=== PATIENT | male | born 1940 | race Caucasian/White ===

== ENCOUNTER → 2020-08-10 13:42 | Outpatient (BNVA) | payer MEDICARE, OTHER, SELFPAY | PROVIDERS: PCP Internal Medicine Endocrinology, Diabetes & Metabolism; Visit Provider Urology | DX: N40.1 Benign prostatic hyperplasia with lower urinary tract symptoms (principal); C67.2 Malignant neoplasm of lateral wall of bladder | CPT/HCPCS: 52000; 81002; 99212 ==

== ENCOUNTER 2021-06-27 08:49 | Outpatient (REF) | payer MEDICARE, OTHER, SELFPAY ==
[2021-06-27 16:18] LABS: Urine Cytology See Pathology rpt
== END 2021-06-27 08:50 | disposition home or self-care (01) ==
LOC: HO.LAB 08:49
PROVIDERS: PCP Internal Medicine Endocrinology, Diabetes & Metabolism; Visit Provider Urology
DX: C67.2 Malignant neoplasm of lateral wall of bladder (principal); N40.1 Benign prostatic hyperplasia with lower urinary tract symptoms; Z85.51 Personal history of malignant neoplasm of bladder
CPT/HCPCS: 52000; 88112; 99212

== ENCOUNTER 2021-12-21 09:22 | Inpatient (IN) | payer MEDICARE, OTHER, SELFPAY ==
[2021-12-21] VITALS (12 sets, daily range): BP systolic 115–197; BP diastolic 66–84; PULSE 60–95; RESP 13–20; TEMP 36.3–36.9; O2SAT 92–97; BMI 33.0; BMI 34.7
--- NOTE | ~2021-12-21 | FL_ITS ---
EXAMINATION: XR FLUOROSCOPY WITH IMAGES CLINICAL INFORMATION: Left hydronephrosis, distal left ureteral calculus. COMPARISON: CT abdomen and pelvis without contrast 12/21/2021 TECHNIQUE: Fluoroscopy performed by Dr. Silvino Loera. Fluoroscopy time: 11 seconds. Cumulative Dose: 5.88 mGy. Images: 1. FINDINGS: There is contrast in the distal left ureter along with a left guidewire. Small oval filling defect in the distal left ureter is consistent with the known calculus. No extravasation of contrast. FL/FL guidance in OR IMPRESSION: Fluoroscopy for urologic procedure.
--- NOTE | ~2021-12-21 | CT_ITS ---
EXAMINATION: CT ABDOMEN AND PELVIS WITHOUT CONTRAST CLINICAL INFORMATION: Left flank and left lower quadrant pain. COMPARISON: CT abdomen/pelvis 09/16/2017. TECHNIQUE: Multidetector volumetric imaging was performed from the superior aspect of the liver through the pubic symphysis. Sagittal and coronal reformatted images were obtained on the technologist's workstation. This CT examination was performed using dose optimization techniques as appropriate, variously including the following: *Automated exposure control *Adjustment of mA and/or kV according to patient size (this includes techniques or standardized protocols for targeted exams where dose is matched to indication/reason for exam; i.e. extremities or head) *Use of iterative reconstruction technique DLP: 747 mGy-cm FINDINGS: LUNG BASES: Subsegmental atelectases. No focal consolidation or pleural effusion. Partially imaged coronary vascular calcifications. LIVER, GALLBLADDER, AND BILIARY TREE: The liver is enlarged measuring 21 cm craniocaudally and demonstrates decreased parenchymal attenuation suggesting the presence of hepatic steatosis. No discrete focal liver lesions are noted in this limited noncontrast examination. Cholelithiasis. No associated gallbladder wall thickening or pericholecystic inflammatory changes to suspect acute cholecystitis. PANCREAS: Unremarkable. SPLEEN: Unremarkable. ADRENAL GLANDS: Unremarkable. KIDNEYS AND URETERS: There is moderate left hydroureteronephrosis with a 0.5 cm calculus in the distal left ureter measuring approximately 473 Hounsfield units. There is mild asymmetric left perinephric fat stranding and left periureteric fat stranding. No right hydroureteronephrosis. There are at least 3 additional punctate calculi in the left kidney, for instance in the lower pole on image 39, series 2. There is a punctate calculus in the lower right kidney on image 34, series 2. There is a well-defined water density cyst in the lateral right kidney measuring 3.7 cm, for which no imaging follow-up is recommended. BLADDER: Unremarkable. GASTROINTESTINAL TRACT: The stomach and the small bowel are nondilated. The appendix is not definitely visualized, however there are no regional inflammatory changes to suspect acute appendicitis. There is severe sigmoid diverticulosis but with no pericolonic inflammatory changes. No evidence of bowel obstruction. ABDOMINAL WALL: No significant hernia is appreciated. LYMPH NODES: No lymphadenopathy by size criteria. 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 Atherosclerotic disease. PELVIC VISCERA: Prostatic calcifications. OSSEOUS STRUCTURES: Severe degenerative changes of the spine. Redemonstration of asymmetric cortical thickening with coarsening of the trabecular architecture of the right hemipelvis and sacrum consistent with Paget's disease. CT/CT abdomen pelvis wo IV con IMPRESSION: Moderate left hydroureteronephrosis with a 0.5 cm obstructive calculus in the distal left ureter. Additional bilateral renal calculi as above. Cholelithiasis but no findings to suspect acute cholecystitis. Severe sigmoid diverticulosis with no significant pericolonic inflammatory changes. Mild acute diverticulitis cannot be excluded as there is some degree of wall thickening that could as well be chronic and related with muscular hypertrophy. Clinical correlation is needed. Hepatomegaly and hepatic steatosis. Paget's disease of the pelvis.
[2021-12-21 10:23] LABS: Appearance Urine Clear; Color Urine Yellow; Glucose Urine UA >=1000 mg/dL (Negative); Leukocyte Esterase Urine Negative (Negative); Nitrite Urine Negative (Negative); UMIC TRIGGER UACC YES; Urine Blood Large (3+) (Negative); Urine Ketones 15 mg/dL (Negative); Urine Protein Trace mg/dL (Neg-Trace)
[2021-12-21 10:28] LABS: Bacteria Urine None Seen (None Seen); Hyaline Casts Urine 0-2 /LPF (0-2); RBC Urine >20 /HPF (0-2); Squamous Epithelial Cell Urine 0-2 /HPF (0-2); WBC Urine 0-5 /HPF (0-5)
--- NOTE | 2021-12-21 12:23 | ED_ITS ---
HPI - Abdominal Pain General Chief Complaint: Abdominal Pain Stated Complaint: kidney stones/nausea/constipation Time Seen by Provider: 12/21/21 12:18 Source: patient Mode of arrival: ambulatory History of Present Illness HPI narrative: 81-year-old male with past medical history of BPH, diabetes, bladder CA, renal stones, presenting to the ED complaining of left flank pain radiating to left lower quadrant with associated nausea and constipation since 06:00. States pain is constant. Also reports urinary frequency and urgency. Denies known fever, vomiting, diarrhea, hematuria MD elicited complaint: abdominal pain and flank pain Pertinent past history: constipation and kidney stones Onset (ago): hour(s) Related Data Home Medications Medication Instructions Recorded Confirmed atorvastatin 80 mg tablet 80 mg PO DAILY 08/10/20 metformin 1,000 mg tablet 1,000 mg PO DAILY 08/10/20 glipizide 5 mg tablet, extended 5 mg PO DAILY 06/27/21 release 24 hr dapagliflozin 5 mg tablet (Farxiga) 5 mg PO DAILY 12/21/21 12/21/21 lisinopril 10 mg tablet 10 mg PO DAILY 12/21/21 12/21/21 Allergies Allergy/AdvReac Type Severity Reaction Status Date / Time No Known Allergies Allergy Verified 06/27/21 08:51 [No Known Allergies*] Review of Systems Review of Systems Constitutional: No Fever, No Chills, No Fatigue, No Malaise ENT/Mouth: No Ear Pain, No Nasal Congestion, No sore throat, No Rhinorrhea, No Swallowing Difficulty Eyes: No Eye Pain, No Swelling, No Redness, No Vision Changes Cardiovascular: No Chest Pain, No SOB, No Edema, No Palpitations Respiratory: No Cough, No Sputum, No Dyspnea Gastrointestinal: + Nausea, No Vomiting, No Diarrhea, No Constipation, + Abdomin al pain Genitourinary: No Dysuria, + Urinary Frequency, No Hematuria, No Urinary Incontinence/retention, + Urgency, + Flank Pain, No Urinary Flow Changes, No Hesitancy Musculoskeletal: No joint pain, No Myalgias, No Joint Swelling Skin: No Skin Lesions, No rash Neuro: No Weakness, No Numbness, No Headache Yes all other systems are reviewed and are negative Constitutional: Reports as per [facility] Past Medical History Attestation statement: The following information was validated with the patient. Medical History Benign prostatic hyperplasia with lower urinary tract symptoms Diabetes mellitus, type II History of bladder cancer Malignant neoplasm of lateral wall of urinary bladder Surgical History History of surgery Social History Social History Are you DNR?: No Advance Directives: No Advance Directives Information Provided: No Physical Exam ED Vital Signs: Vital Signs - 24 hr 12/21/21 10:08 12/21/21 14:23 12/21/21 15:43 Temperature 98.1 F 98.0 F 98.3 F Pulse Rate 62 87 88 Respiratory Rate 13 14 14 Blood Pressure 197/75 H 168/84 H 156/70 H Pulse Oximetry 94 96 92 Oxygen Delivery Method Room Air Room Air 12/21/21 17:20 Temperature 98.5 F Pulse Rate 95 Respiratory Rate 18 Blood Pressure 179/75 H Pulse Oximetry 92 Oxygen Delivery Method Room Air BMI result Body Mass Index 33.0 Const General: cooperative, healthy appearing and no acute distress Orientation/consciousness: patient oriented x3 Limitations: no limitations HENMT Head: Yes normal to inspection and Yes atraumatic Ears: hearing grossly normal bilaterally General nose exam: Normal external nose present Face and sinus: Yes normal facial exam Eyes General: appearance normal, both eyes and all related structures EOM: EOMs intact bilaterally Neck Neck: Yes normal visual inspection and Yes no meningeal signs Resp Effort & Inspection: normal respiratory effort and no respiratory distress Auscultation: clear to auscultation bilaterally Cardio Rate: regular rate Heart sounds: S1 normal heart sound present and S2 normal heart sound present GI Inspection: Yes normal to inspection Palpation (GI): Soft to palpation, Tenderness to palpation present (GI) in the LLQ; with no rebound tenderness, no guarding and not rigid General: Yes CVA tenderness on the left Back/Spine/Pelvis Back: CVA tenderness Skin Rashes: no rashes Wounds: no wounds Neuro General: patient oriented x3, tone normal and no meningeal signs Gait exam (Neuro): Normal gait present Extrem General: Yes normal to inspection Course Course Course Narrative: -UA with RBCs and glucose, not infected -1411--leukocytosis to 14.8 likely reactive from pain, no evidence of infection at this time. Potassium mildly elevated to 5.5 > p.o. Lokelma given -BUN chronically elevated. Labs otherwise reassuring -1527--lactic acid elevated to 3.6 > could be related to metformin CT abdomen pelvis wo IV con IMPRESSION: Moderate left hydroureteronephrosis with a 0.5 cm obstructive calculus in the distal left ureter. Additional bilateral renal calculi as above. ? Cholelithiasis but no findings to suspect acute cholecystitis. ? Severe sigmoid diverticulosis with no significant pericolonic inflammatory changes. Mild acute diverticulitis cannot be excluded as there is some degree of wall thickening that could as well be chronic and related with muscular hypertrophy. Clinical correlation is needed. ? Hepatomegaly and hepatic steatosis. ? Paget's disease of the pelvis. >1528--infection is now suspected. Empiric IV Zosyn ordered. Will consult Urology, Dr. Loera for obstructive calculus -Dr. Loera evaluated patient in the ED, taking to the OR for stent placement at 05:30PM Patient admitted for further management MDM - Abdominal Pain MDM Narrative Medical decision making narrative: 81-year-old male with past medical history of BPH, diabetes, bladder CA, renal stones, presenting to the ED complaining of left flank pain radiating to left lower quadrant with associated nausea and constipation since 06:00. On exam vital signs stable, NAD, appears in pain, abdomen soft with left lower quadrant tenderness and left CVA tenderness, no rebound or guarding. Concern for renal stone vs pyelonephritis/UTI or diverticulitis/SBO/constipation. Lower suspicion for appendicitis/cholecystitis or pancreatitis. Plan: Labs, UA, CT AP, IVF, pain management Differential Diagnosis Differential diagnosis: Likely abdominal pain, calculus of kidney, constipation, diverticulitis and small bowel obstruction Medical Records Attestation: I reviewed the patient's medical records. Lab Data Attestation: I reviewed the patient's lab results. Result diagrams: 12/21/21 13:12 12/21/21 13:12 Labs: Lab Results 12/21/21 12/21/21 12/21/21 Range/Units 10:08 13:12 13:12 WBC 14.8 H (4.8-10.8) X10*3/uL RBC 5.42 (4.60-5.80) X10*6/uL Hgb 16.6 (14.0-18.0) g/dl Hct 52.9 H (42.0-52.0) % MCV 97.6 (80.0-98.0) fL MCH 30.6 (27.0-33.0) pg MCHC 31.4 (31.0-36.0) g/dl RDW 13.5 (11.0-16.0) % Plt Count 293 (160-400) X10*3/uL MPV 10.0 (9.4-12.4) fL Immature Gran % (Auto) 0.5 H (0.0-0.4) % Neut % (Auto) 91.1 H (45-73) % Lymph % (Auto) 4.4 L (20-40) % Greene % (Auto) 3.7 (2-11) % Eos % (Auto) 0.1 (0-4) % Baso % (Auto) 0.2 (0-2) % Lymph # (Auto) 0.7 L (1.2-4.9) X10*3/uL Greene # (Auto) 0.6 (0.1-1.2) X10*3/uL Eos # (Auto) 0.0 (0.0-0.4) X10*3/uL Baso # (Auto) 0.0 (0.0-0.2) X10*3/uL Abs Immat Gran (auto) 0.07 H (0.00-0.03) X10*3/uL Absolute Neuts (auto) 13.5 H (2.0-8.3) x10*3/uL Absolute Nucleated RBC 0.000 (0.0-0.012) X10*3/uL Nucleated RBC % (auto) 0.0 (0.0-0.2) /100WBC Smear Tech's Comments VERIFIED Sodium 142 (135-145) mmol/L Potassium 5.5 H (3.3-5.1) mmol/L Chloride 102 (96-108) mmol/L Carbon Dioxide 26 (22-29) mmol/L Anion Gap 20 (12-20) BUN 19 H (9-16) mg/dL Creatinine 1.30 (0.5-1.4) mg/dL Estim Creat Clear Calc 50.5 Estimated GFR 53 POC Glucose (60-115) mg/dL Random Glucose 241 H (60-115) mg/dL Lactic Acid (0.5-2.0) mmol/L Calcium 10.0 (8.4-10.2) mg/dL Magnesium 1.6 (1.6-2.6) mg/dL Total Bilirubin 1.0 (0.0-1.0) mg/dL Direct Bilirubin 0.5 (0.0-0.5) mg/dL AST 31 (5-37) U/L ALT 33 (0-40) U/L Alkaline Phosphatase 157 H (39-117) U/L Total Protein 7.8 (6.5-8.0) g/dL Albumin 4.6 (3.5-5.0) g/dL Lipase 13 (8-78) U/L Urine Color Yellow Urine Appearance Clear Urine pH 5.0 (5.0-9.0) Ur Specific Xenia 1.020 (1.005-1.025) Urine Protein Trace (Neg-Trace) mg/dL Urine Glucose (UA) >=1000 H (Negative) mg/dL Urine Ketones 15 (Negative) mg/dL Urine Blood Large (3+) H (Negative) Urine Nitrite Negative (Negative) Ur Leukocyte Esterase Negative (Negative) Urine RBC >20 H (0-2) /HPF Urine WBC 0-5 (0-5) /HPF Ur Squamous Epith Cells 0-2 (0-2) /HPF Urine Bacteria None Seen (None Seen) Hyaline Casts 0-2 (0-2) /LPF 12/21/21 12/21/21 12/21/21 Range/Units 14:58 17:13 17:21 WBC (4.8-10.8) X10*3/uL RBC (4.60-5.80) X10*6/uL Hgb (14.0-18.0) g/dl Hct (42.0-52.0) % MCV (80.0-98.0) fL MCH (27.0-33.0) pg MCHC (31.0-36.0) g/dl RDW (11.0-16.0) % Plt Count (160-400) X10*3/uL MPV (9.4-12.4) fL Immature Gran % (Auto) (0.0-0.4) % Neut % (Auto) (45-73) % Lymph % (Auto) (20-40) % Greene % (Auto) (2-11) % Eos % (Auto) (0-4) % Baso % (Auto) (0-2) % Lymph # (Auto) (1.2-4.9) X10*3/uL Greene # (Auto) (0.1-1.2) X10*3/uL Eos # (Auto) (0.0-0.4) X10*3/uL Baso # (Auto) (0.0-0.2) X10*3/uL Abs Immat Gran (auto) (0.00-0.03) X10*3/uL Absolute Neuts (auto) (2.0-8.3) x10*3/uL Absolute Nucleated RBC (0.0-0.012) X10*3/uL Nucleated RBC % (auto) (0.0-0.2) /100WBC Smear Tech's Comments Sodium (135-145) mmol/L Potassium (3.3-5.1) mmol/L Chloride (96-108) mmol/L Carbon Dioxide (22-29) mmol/L Anion Gap (12-20) BUN (9-16) mg/dL Creatinine (0.5-1.4) mg/dL Estim Creat Clear Calc Estimated GFR POC Glucose 169 H (60-115) mg/dL Random Glucose (60-115) mg/dL Lactic Acid 3.6 H* 1.5 (0.5-2.0) mmol/L Calcium (8.4-10.2) mg/dL Magnesium (1.6-2.6) mg/dL Total Bilirubin (0.0-1.0) mg/dL Direct Bilirubin (0.0-0.5) mg/dL AST (5-37) U/L ALT (0-40) U/L Alkaline Phosphatase (39-117) U/L Total Protein (6.5-8.0) g/dL Albumin (3.5-5.0) g/dL Lipase (8-78) U/L Urine Color Urine Appearance Urine pH (5.0-9.0) Ur Specific Xenia (1.005-1.025) Urine Protein (Neg-Trace) mg/dL Urine Glucose (UA) (Negative) mg/dL Urine Ketones (Negative) mg/dL Urine Blood (Negative) Urine Nitrite (Negative) Ur Leukocyte Esterase (Negative) Urine RBC (0-2) /HPF Urine WBC (0-5) /HPF Ur Squamous Epith Cells (0-2) /HPF Urine Bacteria (None Seen) Hyaline Casts (0-2) /LPF Discharge Plan Discharge Clinical Impression: 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, Diverticulitis Patient Disposition: Admitted As Inpatient
[2021-12-21] MEDS: Ketorolac Tromethamine 15 MG/ML VIAL IVPUSH (13:13)
[2021-12-21] MEDS: ondansetron HCL 4 MG/2 ML VIAL IVPUSH (13:14)
[2021-12-21] MEDS: 0.9 % Sodium Chloride 1,000 ML 999 ML IV ×2 (13:18→16:48)
[2021-12-21 13:27] LABS: Basophils Percent Auto 0.2 % (0-2); Eosinophils Percent Auto 0.1 % (0-4); Hematocrit 52.9 % (42.0-52.0); Hemoglobin 16.6 g/dl (14.0-18.0); Imm Gran Abs Auto 0.07 X10*3/uL (0.00-0.03); Imm Gran Pct Auto 0.5 % (0.0-0.4); Lymphocytes Absolute Auto 0.7 X10*3/uL (1.2-4.9); Lymphocytes Percent Auto 4.4 % (20-40); MANUAL DIFF FLAG SCAN; Mean Corpuscular HGB Conc 31.4 g/dl (31.0-36.0); Mean Corpuscular Hemoglobin 30.6 pg (27.0-33.0); Mean Corpuscular Volume 97.6 fL (80.0-98.0); Monocytes Absolute Auto 0.6 X10*3/uL (0.1-1.2); Monocytes Percent Auto 3.7 % (2-11); Neutrophils Absolute Auto 13.5 x10*3/uL (2.0-8.3); Neutrophils Percent Auto 91.1 % (45-73); Platelet Count 293 X10*3/uL (160-400); Red Blood Count 5.42 X10*6/uL (4.60-5.80); Red Cell Distribution Width 13.5 % (11.0-16.0); SCAN SMEAR FLAG 1; White Blood Count 14.8 X10*3/uL (4.8-10.8)
[2021-12-21 13:45] LABS: SLIDE REVIEW VERIFIED
[2021-12-21 13:49] LABS: Alanine Aminotransferase 33 U/L (0-40); Albumin Level 4.6 g/dL (3.5-5.0); Alkaline Phosphatase 157 U/L (39-117); Anion Gap 20 (12-20); Aspartate Amino Transferase 31 U/L (5-37); Bilirubin Direct 0.5 mg/dL (0.0-0.5); Blood Urea Nitrogen 19 mg/dL (9-16); Carbon Dioxide 26 mmol/L (22-29); Chloride 102 mmol/L (96-108); Creatinine Clr Calc Pharmacy 50.5; Estimated Glomerular Filt Rate 53; Glucose Random 241 mg/dL (60-115); Lipase 13 U/L (8-78); Magnesium 1.6 mg/dL (1.6-2.6); Potassium 5.5 mmol/L (3.3-5.1); Sodium 142 mmol/L (135-145); Total Protein 7.8 g/dL (6.5-8.0)
[2021-12-21 15:20] LABS: Lactic Acid 3.6 mmol/L (0.5-2.0)
--- NOTE | 2021-12-21 16:05 | HO.ANESPROP2 ---
[facility] Active Problems Active Problems: All Active Problems (Updated 06/27/21 @ 09:20 by Silvino Loera MD) Malignant neoplasm of lateral wall of urinary bladder (Acute) Benign prostatic hyperplasia with lower urinary tract symptoms (Acute) Past Medical History Medical History Benign prostatic hyperplasia with lower urinary tract symptoms Diabetes mellitus, type II History of bladder cancer Malignant neoplasm of lateral wall of urinary bladder Family History Family history of problems with anesthesia: No Surgical History Surgical History History of surgery History of Problems with Anesthesia: No Social History Social History Advance Directives: No Advance Directives Information Provided: No Meds Allergies Allergy/AdvReac Type Severity Reaction Status Date / Time No Known Allergies Allergy Verified 06/27/21 08:51 [No Known Allergies*] Active Medications: Current Medications Sodium Chloride (Ns) 1,000 mls @ 999 mls/hr IV .Q1H1M MICHEAL Stop: 12/21/21 16:30 Home Medications Medication Instructions Recorded Confirmed Last Taken Type atorvastatin 80 mg tablet 80 mg PO DAILY 08/10/20 Unknown History azithromycin 250 mg tablet 250 mg PO DAILY 08/10/20 Unknown History (Zithromax) glyburide 2.5 mg tablet 2.5 mg PO DAILY 08/10/20 Unknown History metformin 1,000 mg tablet 1,000 mg PO DAILY 08/10/20 Unknown History metoprolol tartrate 25 mg tablet 25 mg PO DAILY 08/10/20 Unknown History glipizide 5 mg tablet, extended 5 mg PO DAILY 06/27/21 Unknown History release 24 hr Exam Exam Date and Time: December 21, 2021 1605 Height,Weight and Vital Signs: Height 5 ft 9 in Weight 101.605 kg Last Vital Signs Temp 98.3 F 12/21/21 15:43 Pulse 88 12/21/21 15:43 Resp 14 12/21/21 15:43 BP 156/70 H 12/21/21 15:43 Pulse Ox 92 12/21/21 15:43 O2 Del Method 12/21/21 14:23 Pertinent Lab Results Pertinent Lab Results: Laboratory Tests 12/21/21 12/21/21 12/21/21 10:08 13:12 13:12 WBC 14.8 H RBC 5.42 Hgb 16.6 Hct 52.9 H MCV 97.6 MCH 30.6 MCHC 31.4 RDW 13.5 Plt Count 293 MPV 10.0 Immature Gran % (Auto) 0.5 H Neut % (Auto) 91.1 H Lymph % (Auto) 4.4 L Haines % (Auto) 3.7 Eos % (Auto) 0.1 Baso % (Auto) 0.2 Lymph # (Auto) 0.7 L Haines # (Auto) 0.6 Eos # (Auto) 0.0 Baso # (Auto) 0.0 Abs Immat Gran (auto) 0.07 H Absolute Neuts (auto) 13.5 H Absolute Nucleated RBC 0.000 Nucleated RBC % (auto) 0.0 Smear Tech's Comments VERIFIED Sodium 142 Potassium 5.5 H Chloride 102 Carbon Dioxide 26 Anion Gap 20 BUN 19 H Creatinine 1.30 Estim Creat Clear Calc 50.5 Estimated GFR 53 Random Glucose 241 H Lactic Acid Calcium 10.0 Magnesium 1.6 Total Bilirubin 1.0 Direct Bilirubin 0.5 AST 31 ALT 33 Alkaline Phosphatase 157 H Total Protein 7.8 Albumin 4.6 Lipase 13 Urine Color Yellow Urine Appearance Clear Urine pH 5.0 Ur Specific Morse 1.020 Urine Protein Trace Urine Glucose (UA) >=1000 H Urine Ketones 15 Urine Blood Large (3+) H Urine Nitrite Negative Ur Leukocyte Esterase Negative Urine RBC >20 H Urine WBC 0-5 Ur Squamous Epith Cells 0-2 Urine Bacteria None Seen Hyaline Casts 0-2 12/21/21 14:58 WBC RBC Hgb Hct MCV MCH MCHC RDW Plt Count MPV Immature Gran % (Auto) Neut % (Auto) Lymph % (Auto) Haines % (Auto) Eos % (Auto) Baso % (Auto) Lymph # (Auto) Haines # (Auto) Eos # (Auto) Baso # (Auto) Abs Immat Gran (auto) Absolute Neuts (auto) Absolute Nucleated RBC Nucleated RBC % (auto) Smear Tech's Comments Sodium Potassium Chloride Carbon Dioxide Anion Gap BUN Creatinine Estim Creat Clear Calc Estimated GFR Random Glucose Lactic Acid 3.6 H* Calcium Magnesium Total Bilirubin Direct Bilirubin AST ALT Alkaline Phosphatase Total Protein Albumin Lipase Urine Color Urine Appearance Urine pH Ur Specific Morse Urine Protein Urine Glucose (UA) Urine Ketones Urine Blood Urine Nitrite Ur Leukocyte Esterase Urine RBC Urine WBC Ur Squamous Epith Cells Urine Bacteria Hyaline Casts Airway Mallampati Class: II TM Dist: >3cm Neck ROM: Full Denture: Upper Loose/Missing/Broken Teeth: No Heart: RRR Lungs: CTA Assessment and Plan Assessment Anesthesia Assessment: Anesthesia Plan Discussed and Chart Reviewed Final Anesthetic Review Family History of Problems with Anesthesia: No History of Problems with Anesthesia: No NPO: Yes ASA Class: III and Emergency Final Preanesthetic Review: No Changes in Pt Med Stat, Meds/Allgs Chart Reviewed, Consent Obtained/Reviewed and Anes Risks/Benef Reviewed Patient Risk: Intermediate Procedure Risk: Low Anesthetic Plan Anesthetic Plan: GA Disposition: Standard PACU
--- NOTE | 2021-12-21 16:28 | PM.UROCN ---
History of Present Illness Consult details Consult date: 12/21/21 Narrative: consulting complaint - left distal ureteric stone 81-year-old male Woke this morning at 06:30 with left-sided flank pain Has had prior kidney stones Came to emergency room Creatinine 1.3, WBC 14.8, lactate 3.6 on background of diabetes Imaging - There is moderate left hydroureteronephrosis with a 0.5 cm calculus in the distal left ureter measuring approximately 473 Hounsfield units. There is mild asymmetric left perinephric fat stranding and left periureteric fat stranding. No right hydroureteronephrosis. There are at least 3 additional punctate calculi in the left kidney Plan for cystoscopy, left retrograde, left ureteroscopy with laser lithotripsy stent placement Review of Systems Constitutional: Constitutional: Reports as per HPI and Reports no additional constitutional complaints Cardiovascular: Cardiovascular: Reports as per HPI and Reports no additional cardiovascular complaints Respiratory: Respiratory: Reports as per HPI and Reports no additional respiratory complaints Gastrointestinal: Gastrointestinal: Reports as per HPI and Reports no additional gastrointestinal complaints Genitourinary: Genitourinary: Reports as per HPI Musculoskeletal: Musculoskeletal: Reports no additional musculoskeletal complaints and Reports as per HPI Neurologic: Reports system reviewed and no additional complaints, except as documented and Reports as per HPI [facility] Past Medical History Medical History Benign prostatic hyperplasia with lower urinary tract symptoms Diabetes mellitus, type II History of bladder cancer Malignant neoplasm of lateral wall of urinary bladder Surgical History Surgical History History of surgery Social History Social History Advance Directives: No Advance Directives Information Provided: No Meds Allergies Allergy/AdvReac Type Severity Reaction Status Date / Time No Known Allergies Allergy Verified 06/27/21 08:51 [No Known Allergies*] Active Medications: Current Medications Sodium Chloride (Ns) 1,000 mls @ 999 mls/hr IV .Q1H1M MICHEAL Stop: 12/21/21 16:30 Home Medications Medication Instructions Recorded Confirmed Last Taken Type atorvastatin 80 mg tablet 80 mg PO DAILY 08/10/20 Unknown History azithromycin 250 mg tablet 250 mg PO DAILY 08/10/20 Unknown History (Zithromax) glyburide 2.5 mg tablet 2.5 mg PO DAILY 08/10/20 Unknown History metformin 1,000 mg tablet 1,000 mg PO DAILY 08/10/20 Unknown History metoprolol tartrate 25 mg tablet 25 mg PO DAILY 08/10/20 Unknown History glipizide 5 mg tablet, extended 5 mg PO DAILY 06/27/21 Unknown History release 24 hr Physical Exam Vital Signs: Vital Signs: Last Vital Signs Temp 98.3 F 12/21/21 15:43 Pulse 88 12/21/21 15:43 Resp 14 12/21/21 15:43 BP 156/70 H 12/21/21 15:43 Pulse Ox 92 12/21/21 15:43 O2 Del Method 12/21/21 14:23 BMI result Body Mass Index 33.0 Const: General: cooperative, healthy appearing, comfortable and no acute distress Orientation/consciousness: patient oriented x3 HEENT: Face and sinus: Yes normal facial exam Mouth: moist mucous membranes Neck: Neck: Yes normal visual inspection, Yes full ROM and Yes trachea midline Chest: Chest palpation & inspection: normal inspection of the chest Resp: Effort & Inspection: normal respiratory effort, able to speak in complete sentences and no respiratory distress GI: Inspection: Yes normal to inspection Back/Spine/Pelvis: Cervical Spine: normal cervical lordosis Thoracic/Lumbar Spine: thoracic and lumbar spine normal to inspection Skin: General skin exam: no rashes or lesions noted Neuro: General: patient oriented x3, tone normal and moves all extremities Extrem: General: Yes normal to inspection and Yes capillary refill normal Results Labs Result diagrams: 12/21/21 13:12 12/21/21 13:12 Labs: Abnormal lab results 12/21/21 12/21/21 12/21/21 Range/Units 10:08 13:12 13:12 WBC 14.8 H (4.8-10.8) X10*3/uL Hct 52.9 H (42.0-52.0) % Immature Gran % (Auto) 0.5 H (0.0-0.4) % Neut % (Auto) 91.1 H (45-73) % Lymph % (Auto) 4.4 L (20-40) % Lymph # (Auto) 0.7 L (1.2-4.9) X10*3/uL Abs Immat Gran (auto) 0.07 H (0.00-0.03) X10*3/uL Absolute Neuts (auto) 13.5 H (2.0-8.3) x10*3/uL Potassium 5.5 H (3.3-5.1) mmol/L BUN 19 H (9-16) mg/dL Random Glucose 241 H (60-115) mg/dL Lactic Acid (0.5-2.0) mmol/L Alkaline Phosphatase 157 H (39-117) U/L Urine Glucose (UA) >=1000 H (Negative) mg/dL Urine Blood Large (3+) H (Negative) Urine RBC >20 H (0-2) /HPF 12/21/21 Range/Units 14:58 WBC (4.8-10.8) X10*3/uL Hct (42.0-52.0) % Immature Gran % (Auto) (0.0-0.4) % Neut % (Auto) (45-73) % Lymph % (Auto) (20-40) % Lymph # (Auto) (1.2-4.9) X10*3/uL Abs Immat Gran (auto) (0.00-0.03) X10*3/uL Absolute Neuts (auto) (2.0-8.3) x10*3/uL Potassium (3.3-5.1) mmol/L BUN (9-16) mg/dL Random Glucose (60-115) mg/dL Lactic Acid 3.6 H* (0.5-2.0) mmol/L Alkaline Phosphatase (39-117) U/L Urine Glucose (UA) (Negative) mg/dL Urine Blood (Negative) Urine RBC (0-2) /HPF Short CBC 12/21/21 Range/Units 13:12 WBC 14.8 H (4.8-10.8) X10*3/uL Hgb 16.6 (14.0-18.0) g/dl Hct 52.9 H (42.0-52.0) % Plt Count 293 (160-400) X10*3/uL BMP 12/21/21 13:12 Sodium 142 Potassium 5.5 H Chloride 102 Carbon Dioxide 26 BUN 19 H Creatinine 1.30 Calcium 10.0 Liver Function 12/21/21 Range/Units 13:12 Total Bilirubin 1.0 (0.0-1.0) mg/dL Direct Bilirubin 0.5 (0.0-0.5) mg/dL AST 31 (5-37) U/L ALT 33 (0-40) U/L Alkaline Phosphatase 157 H (39-117) U/L Albumin 4.6 (3.5-5.0) g/dL Urine 12/21/21 Range/Units 10:08 Urine Color Yellow Urine Appearance Clear Urine pH 5.0 (5.0-9.0) Ur Specific Eldridge 1.020 (1.005-1.025) Urine Protein Trace (Neg-Trace) mg/dL Urine Glucose (UA) >=1000 H (Negative) mg/dL All other labs normal. Assessment and Plan (1) Nephrolithiasis: Status: Acute Plan Ureteroscopy We discussed the nature of the decision and reasonable alternatives for performing ureteroscopy. Options such as medical therapy were discussed. Interventions include chemical dissolution, ESWL, ureteroscopy with laser lithotripsy and stent placement, PCNL. The relative uncertainties and benefits related to each alternate procedure were adequately discussed. General surgical risks including, but not limited to - pain, bleeding, infection, myocardial infarction, pulmonary embolus, deep vein thrombosis and cerebrovascular accident which may result in further hospitalization were discussed. Full disclosure of the procedure as well as all major risks, benefits and complications were discussed including but not limited to damage to the urethra, bladder and kidney infection, damage to the ureter, stent migration or malposition, scarring to the renal pelvis, remnant stone fragments, subsequent stone passage with need for secondary procedures. The overall secondary procedure rate is approximately 10-15%. The overall clearance rate is approximately 90-95%. Success of the procedure in the short-term does not necessarily guarantee that long-term success will be maintained. Suitable follow up will need to be maintained. The patient showed understanding of discussion and wishes to proceed with - cystoscopy, retrograde, ureteroscopy, possible lithotripsy/stone basketing and stent on the left side Procedures Date of Service Date of Service: 12/21/21
[2021-12-21] MEDS: Sodium Zirconium Cyclosilicate 5 GM POWD.PACK PO (16:47)
[2021-12-21] MEDS: Piperacillin Sodium/Tazobactam 3.375 GM in 0.9 % Sodium Chloride 50 ML IV (16:47)
--- NOTE | 2021-12-21 17:00 | PC.NURSE ---
Upon receiving report from ED, pt noted to have lactic acid of 3.6 and do for repeat labs at 1700. No current orders for repeat level. Dr. Loera notified and ordered entered. Lactic level drawn in PACU at 1710. Pt also noted to not have EKG on file, Dr. Gonzalez aware and order entered. EKG done in PACU. Pt to be admitted to the floor following procedure, no hospitalist consult in, no admission orders, no COVID test. ED physician aware, consult and COVID swab orders entered
--- NOTE | 2021-12-21 17:03 | PC.NURSE ---
RN to RN report provided to Rosamaria. Pt to surgery at this time.
[2021-12-21 17:04] LABS: Reflex Lactate? Lactic Acid Added
[2021-12-21 17:25] LABS: Glucose, Whole Blood 169 mg/dL (60-115)
[2021-12-21 17:28] LABS: Lactic Acid 1.5 mmol/L (0.5-2.0)
--- NOTE | 2021-12-21 17:30 | MHC.SHP ---
Pre-Procedural Eval Section A Date of Service: 12/21/21 The patient is an INPATIENT: No Changes since office visit: No Cold of Flu in the past 2 weeks, No New Medical Problems, No Changes in Medication and No Patient answered all questions The History & Physical has been completed within 30 days and I have reviewed it.: Yes Section B Chief Complaint: kidney stones/nausea/constipation Allergies: Allergies Allergy/AdvReac Type Severity Reaction Status Date / Time No Known Allergies Allergy Verified 06/27/21 08:51 [No Known Allergies*] Review of Systems Sugical H&P ROS: Negative: Constitution, Cardiovascular, Respiratory, Neurological, Psychiatric, Hem-Onc, Allergic/Immunologic, Gastrointestinal, Genitourinary, Musculoskeletal, Integumentary, Endocrine and Eyes/Ears/Nose/Throat Exam Surgical H&P Exam: Normal: HEENT, Normal: Heart, Normal: Lungs, Normal: Extremities, Normal: Abdomen, Normal: Skin and Normal: Neurological Plan Diagnosis/Plan: Unchanged ( cystoscopy, left retrograde, left rigid ureteroscopy with laser lithotripsy stent placement) I have reviewed the history and physical and performed a pertinent physical examination on my patient. No changes have occurred unless specified.
--- NOTE | 2021-12-21 17:50 | PHA.MEDREC ---
Pharmacy Consult ? Medication Reconciliation Pharmacy has completed the medication reconciliation. Contacted pt's son for med list, he wast not sure and asked us to contact [facility]. [facility] contacted and they have the patient as Raya Guajardo in their system
[2021-12-21 17:58] LABS: COVID-19 Test Negative (Negative); IDNOW Serial# 9DB6401D
--- NOTE | 2021-12-21 18:21 | W.PM.OPN ---
Operative Note Operative Note Date of Service: 12/21/21 Narrative: PreOperative Diagnosis: distal left ureteric stone Post Operative Diagnosis: distal left ureteric stone Procedure: - cystoscopy, left retrograde - left dilatation of ureteric orifice under fluoroscopy - left ureteroscopy, laser lithotripsy, stone basketing - left stent placement Surgeon: Dr Silvino Loera Anesthesia: General Indications for procedure: distal left ureteric stone with hydroureter for [place] and creatinine 1.3, lactate 3.6 Procedure: After informed consent was verified patient was brought to the operating placed in supine position. Anesthesia was administered per protocol. Patient was placed in modified dorsal lithotomy position and prepped and draped in a sterile fashion. Safety pause time-out and side of surgery confirmed. Antibiotics confirmed. A 22 Turkish cystoscope was inserted per urethra. Bladder was normal in its entirety. Both ureteric orifices were in normal position. The left ureteric orifice was cannulated and a retrograde examination was performed. stone defects seen in distal portion left ureter and proximal hydroureteronephrosis . A Sensor guidewire was placed up to the level of the renal pelvis under fluoroscopy. The rigid cystoscope was removed. A [place] dilator was placed over the Sensor guidewire and used to dilate the ureteric orifice under fluoroscopy. The dilator was removed. The semi rigid ureteral scope was placed alongside the Sensor guidewire. stone was encountered. Using a365 laser fiber stone broken a small pieces. Using basket fragments removed and sent for analysis. A 6 Turkish by 24 cm double-J stent was placed into the renal pelvis and bladder under a combination of fluoroscopy and direct visualization. The bladder was emptied. The patient tolerated the procedure well and was extubated in the operating room, and transferred in stable condition to the recovery area. Pathology: Stones Drains: double-J stent
[2021-12-21 20:18] LABS: Glucose, Whole Blood 159 mg/dL (60-115)
--- NOTE | 2021-12-21 21:05 | HO.PM.IMCN ---
History of Present Illness Data of Consult Service Date: 12/21/21 Primary Care Provider: Kenneth Deleon MD [facility] Reason for consult: Medical management This is a 81-year-old male with a pertinent history of recurrent nephrolithiasis, BPH, myp-yfaxmps-emvjixtib diabetes mellitus, who presents to the emergency department with complaints of left flank pain. Patient states that it started on the day of presentation around 6am and was persistent, progressive, nonradiating and associated with nausea. Denies any GI complaints. Patient denies fever, chills, chest discomfort, palpitations, shortness of breath, vomiting, changes in bowel habit. In the emergency department, white count was elevated with lactic acidosis and imaging was concerning for moderate left hydronephrosis with 0.5 cm calculus in the distal left ureter. Urology was consulted and patient underwent cystoscopy with left ureteroscopy and laser lithotripsy with stent placement. Hospitalist group consulted for evaluation and management of chronic medical conditions. Review of Systems Review of Systems: All 13 review of systems are negative except as noted in HPI [facility] Medical History (Updated 12/21/21 @ 21:37 by Eulogio Madrigal MD) Benign prostatic hyperplasia with lower urinary tract symptoms Diabetes mellitus, type II History of bladder cancer Malignant neoplasm of lateral wall of urinary bladder Surgical History History of surgery Social History Are you DNR?: No Advance Directives: No Advance Directives Information Provided: No Meds Allergies Allergy/AdvReac Type Severity Reaction Status Date / Time No Known Allergies Allergy Verified 06/27/21 08:51 [No Known Allergies*] Active Medications: Current Medications Atorvastatin Calcium (Atorvastatin Calcium 80 Mg Tablet) 80 mg PO DAILY MICHEAL Glipizide (Glipizide Xl 5 Mg Tab.Er.24) 5 mg PO DAILY MICHEAL Sodium Chloride (Ns) 1,000 mls @ 100 mls/hr IVCONT .Q10H MICHEAL Lisinopril (Lisinopril 10 Mg Tablet) 10 mg PO DAILY MICHEAL; Protocol Metformin HCl (Metformin Hcl 1,000 Mg Tablet) 1,000 mg PO BIDWM MICHEAL Sodium Chloride (0.9 % Sodium Chloride Flush 3 Ml Syringe) 3 ml IVFLUSH QSHIFT MICHEAL Tramadol HCl (Tramadol Hcl 50 Mg Tablet) 50 mg PO Q6H PRN PRN Reason: Pain, Moderate (Pain Scale 4-6 Home Medications Medication Instructions Recorded Confirmed Last Taken Type atorvastatin 80 mg tablet 80 mg PO DAILY 08/10/20 12/21/21 12/21/21 History metformin 1,000 mg tablet 1,000 mg PO BIDWM 08/10/20 12/21/21 12/21/21 History glipizide 5 mg tablet, extended 5 mg PO DAILY 06/27/21 12/21/21 12/21/21 History release 24 hr dapagliflozin 5 mg tablet (Farxiga) 5 mg PO DAILY 12/21/21 12/21/21 12/21/21 History lisinopril 10 mg tablet 10 mg PO DAILY 12/21/21 12/21/21 12/21/21 History Physical Exam Vital Signs and Narrative: Vital Signs: Last Vital Signs Temp 98.2 F 12/21/21 20:03 Pulse 77 12/21/21 20:03 Resp 20 12/21/21 20:03 BP 151/82 H 12/21/21 20:03 Pulse Ox 97 12/21/21 20:03 O2 Del Method 12/21/21 20:03 O2 Flow Rate 2 12/21/21 20:03 BMI result Body Mass Index 33.0 Elderly male lying in PACU bed in no distress Neck supple, no JVD Regular rate and rhythm, S1-S2 heard Regular breath sounds bilaterally, no wheezing or crackles appreciated Abdomen soft nontender, no guarding, no rigidity, no flank tenderness ; Rizzo catheter with reddish urine Patient is awake, alert and oriented to self, place, time and person ; no focal motor deficit Psych: Normal mood No pedal edema Results Labs CBC and Chem 7: 12/21/21 13:12 12/21/21 13:12 Labs: Laboratory Results - last 24 hr 12/21/21 12/21/21 12/21/21 10:08 13:12 13:12 MCV 97.6 MCH 30.6 MCHC 31.4 RDW 13.5 Plt Count 293 MPV 10.0 Immature Gran % (Auto) 0.5 H Neut % (Auto) 91.1 H Lymph % (Auto) 4.4 L [place] % (Auto) 3.7 Eos % (Auto) 0.1 Baso % (Auto) 0.2 Lymph # (Auto) 0.7 L [place] # (Auto) 0.6 Eos # (Auto) 0.0 Baso # (Auto) 0.0 Abs Immat Gran (auto) 0.07 H Absolute Neuts (auto) 13.5 H Absolute Nucleated RBC 0.000 Nucleated RBC % (auto) 0.0 Smear Tech's Comments VERIFIED Anion Gap 20 Estim Creat Clear Calc 50.5 Estimated GFR 53 POC Glucose Random Glucose 241 H Lactic Acid Calcium 10.0 Magnesium 1.6 Total Bilirubin 1.0 Direct Bilirubin 0.5 AST 31 ALT 33 Alkaline Phosphatase 157 H Total Protein 7.8 Albumin 4.6 Lipase 13 Urine Color Yellow Urine Appearance Clear Urine pH 5.0 Ur Specific [place] 1.020 Urine Protein Trace Urine Glucose (UA) >=1000 H Urine Ketones 15 Urine Blood Large (3+) H Urine Nitrite Negative Ur Leukocyte Esterase Negative Urine RBC >20 H Urine WBC 0-5 Ur Squamous Epith Cells 0-2 Urine Bacteria None Seen Hyaline Casts 0-2 COVID-19 (CORNELIO) COVID-19 [employer] 12/21/21 12/21/21 12/21/21 14:58 17:13 17:21 MCV MCH MCHC RDW Plt Count MPV Immature Gran % (Auto) Neut % (Auto) Lymph % (Auto) [place] % (Auto) Eos % (Auto) Baso % (Auto) Lymph # (Auto) [place] # (Auto) Eos # (Auto) Baso # (Auto) Abs Immat Gran (auto) Absolute Neuts (auto) Absolute Nucleated RBC Nucleated RBC % (auto) Smear Tech's Comments Anion Gap Estim Creat Clear Calc Estimated GFR POC Glucose 169 H Random Glucose Lactic Acid 3.6 H* 1.5 Calcium Magnesium Total Bilirubin Direct Bilirubin AST ALT Alkaline Phosphatase Total Protein Albumin Lipase Urine Color Urine Appearance Urine pH Ur Specific [place] Urine Protein Urine Glucose (UA) Urine Ketones Urine Blood Urine Nitrite Ur Leukocyte Esterase Urine RBC Urine WBC Ur Squamous Epith Cells Urine Bacteria Hyaline Casts COVID-19 (CORNELIO) COVID-19 [employer] Com 12/21/21 12/21/21 17:36 20:07 MCV MCH MCHC RDW Plt Count MPV Immature Gran % (Auto) Neut % (Auto) Lymph % (Auto) [place] % (Auto) Eos % (Auto) Baso % (Auto) Lymph # (Auto) [place] # (Auto) Eos # (Auto) Baso # (Auto) Abs Immat Gran (auto) Absolute Neuts (auto) Absolute Nucleated RBC Nucleated RBC % (auto) Smear Tech's Comments Anion Gap Estim Creat Clear Calc Estimated GFR POC Glucose 159 H Random Glucose Lactic Acid Calcium Magnesium Total Bilirubin Direct Bilirubin AST ALT Alkaline Phosphatase Total Protein Albumin Lipase Urine Color Urine Appearance Urine pH Ur Specific [place] Urine Protein Urine Glucose (UA) Urine Ketones Urine Blood Urine Nitrite Ur Leukocyte Esterase Urine RBC Urine WBC Ur Squamous Epith Cells Urine Bacteria Hyaline Casts COVID-19 (CORNELIO) Negative COVID-19 Clin Com See Note Imaging Radiologist's Impressions: Impressions Abdomen/Pelvis CT 12/21/21 12:56 IMPRESSION: Moderate left hydroureteronephrosis with a 0.5 cm obstructive calculus in the distal left ureter. Additional bilateral renal calculi as above. Cholelithiasis but no findings to suspect acute cholecystitis. Severe sigmoid diverticulosis with no significant pericolonic inflammatory changes. Mild acute diverticulitis cannot be excluded as there is some degree of wall thickening that could as well be chronic and related with muscular hypertrophy. Clinical correlation is needed. Hepatomegaly and hepatic steatosis. Paget's disease of the pelvis. Assessment and Plan (1) 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: Status: Acute (2) Nephrolithiasis: Status: Acute (3) Benign prostatic hyperplasia with lower urinary tract symptoms: Status: Acute Plan #. Acute left-sided Hydronephrosis due to obstructive ureteral calculus status post lithotripsy and stent placement -continue pain management p.r.n. Stent management as per Urology. UA without pyuria, nitrites and leukocyte esterase negative, hold off on antibiotics. WBC likely reactive. #. Type A lactic acidosis -trending down with fluid resuscitation #. Uic-ilxfeop-stjfjwwmu diabetes mellitus with hyperglycemia -hold home metformin and glipizide. Mat resume at discharge. Initiating Accu-Cheks with sliding scale insulin before meals and at bedtime. #. Imaging concerning for diverticulitis -left flank pain likely due to obstructive ureteral calculus and not diverticulitis as patient with complete resolution of symptoms after stent placement and lithotripsy. Patient seen eating in PACU and without further episodes of abdominal pain and nausea. No clinical concern for diverticulitis at this time and no indication for antibiotics. Thank you for the consult. Will sign off at this time. Please call if we can help
[2021-12-21] MEDS: Phenazopyridine HCL 100 MG TABLET PO (22:12)
[2021-12-21] MEDS: 0.9 % Sodium Chloride 1,000 ML 100 ML IVCONT (22:13)
[2021-12-21] MEDS: 0.9 % Sodium Chloride Flush 3 ML SYRINGE IVFLUSH (22:13)
[2021-12-22 03:53] VITALS: BP 151/75; PULSE 79; RESP 18; TEMP 36; O2SAT 97
[2021-12-22 06:59] VITALS: BP 158/88; PULSE 82; RESP 18; TEMP 36.1; O2SAT 93
[2021-12-22] MEDS: Atorvastatin Calcium 80 MG TABLET PO (07:23)
[2021-12-22] MEDS: lisinopriL 10 MG TABLET PO (07:23)
[2021-12-22 07:30] LABS: Glucose, Whole Blood 166 mg/dL (60-115)
[2021-12-22] MEDS: 0.9 % Sodium Chloride 1,000 ML 100 ML IVCONT (08:34)
[2021-12-22 11:18] VITALS: BP 131/61; PULSE 83; RESP 18; TEMP 36.1; O2SAT 91
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
[2021-12-22 15:40] VITALS: BP 173/86; PULSE 86; RESP 18; TEMP 37.6; O2SAT 93
--- NOTE | 2021-12-22 15:41 | P.PNUR_ITS ---
Subjective Subjective Date of Service: 12/22/21 Interval history: Lactic acid resolved Cr ok WBC ok Minimal pain Catheter out Physical Exam Vital Signs: Vital Signs: Last Vital Signs Temp 97 F 12/22/21 11:18 Pulse 83 12/22/21 11:18 Resp 18 12/22/21 11:18 BP 131/61 12/22/21 11:18 Pulse Ox 91 L 12/22/21 11:18 O2 Del Method 12/22/21 11:18 O2 Flow Rate 3 12/22/21 06:59 BMI result Body Mass Index 34.7 Const: General: cooperative, healthy appearing, comfortable and no acute distress Orientation/consciousness: patient oriented x3 HEENT: Face and sinus: Yes normal facial exam Mouth: moist mucous membranes Neck: Neck: Yes normal visual inspection, Yes full ROM and Yes trachea midline Chest: Chest palpation & inspection: normal inspection of the chest Resp: Effort & Inspection: normal respiratory effort, able to speak in complete sentences and no respiratory distress GI: Inspection: Yes normal to inspection Back/Spine/Pelvis: Cervical Spine: normal cervical lordosis Thoracic/Lumbar Spine: thoracic and lumbar spine normal to inspection Skin: General skin exam: no rashes or lesions noted Neuro: General: patient oriented x3, tone normal and moves all extremities Extrem: General: Yes normal to inspection and Yes capillary refill normal Urology Results Labs CBC & Chem 7: 12/21/21 13:12 12/21/21 13:12 Labs: Laboratory Results - last 24 hr 12/21/21 12/21/21 12/21/21 10:08 17:13 17:21 POC Glucose 169 H Lactic Acid 1.5 Urine Color Yellow Urine Appearance Clear Urine pH 5.0 Ur Specific [place] 1.020 Urine Protein Trace Urine Glucose (UA) >=1000 H Urine Ketones 15 Urine Blood Large (3+) H Urine Nitrite Negative Ur Leukocyte Esterase Negative Urine RBC >20 H Urine WBC 0-5 Ur Squamous Epith Cells 0-2 Urine Bacteria None Seen Hyaline Casts 0-2 COVID-19 (CORNELIO) COVID-19 Clin Com 12/21/21 12/21/21 12/22/21 17:36 20:07 06:59 POC Glucose 159 H 166 H Lactic Acid Urine Color Urine Appearance Urine pH Ur Specific [place] Urine Protein Urine Glucose (UA) Urine Ketones Urine Blood Urine Nitrite Ur Leukocyte Esterase Urine RBC Urine WBC Ur Squamous Epith Cells Urine Bacteria Hyaline Casts COVID-19 (CORNELIO) Negative COVID-19 Clin Com See Note Progress Note: A&P Assessment and plan (1) 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: Status: Acute Plan DC home Time Spent With Patient Time: Total time spent is greater than 50% in coordination of care (as documented) at patient's floor/unit and/or counseling patient:
--- NOTE | 2021-12-22 15:46 | PM.DS ---
DS: Providers Provider Date of Service: 12/22/21 Date of admission: 12/21/21 18:18 Primary care physician: Kenneth Deleon MD Consults: 12/21/21 18:20 Consult to Hospitalist Stat Consulting Provider: Hospitalist Reason For Exam: distal stone with diabetes DS: Diagnosis Discharge Diagnosis (1) 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: Status: Acute DS: Summary Hospital Course Hospital Course: Underwent procedure for stone removal and stent placement Status at Discharge Functional status at discharge: independent ambulation Overall status at discharge: patient is back to baseline Time Spent with Patient Time attestation: Total time spent providing and/or coordinating discharge services: Discharge coordination time: Less than 30 minutes Quality: Safe Use of Opioids Does Pt have an Active Cancer Diagnosis on the Problem List?: No Quality: Stroke Does the patient have a stroke diagnosis?: No Physical Exam Vital Signs: Vital Signs: Last Vital Signs Temp 99.6 F 12/22/21 15:40 Pulse 86 12/22/21 15:40 Resp 18 12/22/21 15:40 BP 173/86 H 12/22/21 15:40 Pulse Ox 93 12/22/21 15:40 O2 Del Method 12/22/21 15:40 O2 Flow Rate 3 12/22/21 06:59 BMI result Body Mass Index 34.7 Const: General: cooperative, healthy appearing, comfortable and no acute distress Orientation/consciousness: patient oriented x3 HEENT: Face and sinus: Yes normal facial exam Mouth: moist mucous membranes Neck: Neck: Yes normal visual inspection, Yes full ROM and Yes trachea midline Chest: Chest palpation & inspection: normal inspection of the chest Resp: Effort & Inspection: normal respiratory effort, able to speak in complete sentences and no respiratory distress GI: Inspection: Yes normal to inspection Back/Spine/Pelvis: Cervical Spine: normal cervical lordosis Thoracic/Lumbar Spine: thoracic and lumbar spine normal to inspection Skin: General skin exam: no rashes or lesions noted Neuro: General: patient oriented x3, tone normal and moves all extremities Extrem: General: Yes normal to inspection and Yes capillary refill normal DS: Data Data Completed and Pending Pending studies at discharge: Pending at discharge 12/21/21 18:25 Surgical [PTH] Routine Labs on day of discharge: Laboratory Results - last 24 hr 12/21/21 12/21/21 12/21/21 10:08 17:13 17:21 POC Glucose 169 H Lactic Acid 1.5 Urine Color Yellow Urine Appearance Clear Urine pH 5.0 Ur Specific [place] 1.020 Urine Protein Trace Urine Glucose (UA) >=1000 H Urine Ketones 15 Urine Blood Large (3+) H Urine Nitrite Negative Ur Leukocyte Esterase Negative Urine RBC >20 H Urine WBC 0-5 Ur Squamous Epith Cells 0-2 Urine Bacteria None Seen Hyaline Casts 0-2 COVID-19 (CORNELIO) COVID-19 Clin Com 12/21/21 12/21/21 12/22/21 17:36 20:07 06:59 POC Glucose 159 H 166 H Lactic Acid Urine Color Urine Appearance Urine pH Ur Specific [place] Urine Protein Urine Glucose (UA) Urine Ketones Urine Blood Urine Nitrite Ur Leukocyte Esterase Urine RBC Urine WBC Ur Squamous Epith Cells Urine Bacteria Hyaline Casts COVID-19 (CORNELIO) Negative COVID-19 Clin Com See Note Imaging CT scan - abdomen: Attestation: I personally reviewed and interpreted this imaging study as follows: My impression: obstruction distal stone Radiologist's impression: ITS Impressions Abdomen/Pelvis CT 12/21/21 12:56 IMPRESSION: Moderate left hydroureteronephrosis with a 0.5 cm obstructive calculus in the distal left ureter. Additional bilateral renal calculi as above. Cholelithiasis but no findings to suspect acute cholecystitis. Severe sigmoid diverticulosis with no significant pericolonic inflammatory changes. Mild acute diverticulitis cannot be excluded as there is some degree of wall thickening that could as well be chronic and related with muscular hypertrophy. Clinical correlation is needed. Hepatomegaly and hepatic steatosis. Paget's disease of the pelvis. Discharge Plan Discharge Patient Disposition: Home, Self-Care Discharge Diagnosis: ureteric stone Referrals: Kenneth Deleon MD [Primary Care Provider] - 1 Week Discharge Medications: New tamsulosin 0.4 mg capsule 0.4 mg PO BEDTIME 14 Days Qty: 14 0RF phenazopyridine [Pyridium] 100 mg tablet 100 mg PO TID PRN (Reason: Spasm) 4 Days Qty: 12 0RF Continued lisinopril 10 mg Tablet 10 mg PO DAILY Farxiga 5 mg Tablet 5 mg PO DAILY metformin 1,000 mg tablet 1,000 mg PO BIDWM atorvastatin 80 mg tablet 80 mg PO DAILY glipizide 5 mg tablet extended release 24hr 5 mg PO DAILY Discharge Orders: Discharge Order (Routine); Ordered 12/22/21 Ordered By: Silvino Loera Diet: Advance to usual diet Activity on Discharge: As tolerated Stand Alone Forms: Patient Portal Discharge page Care Plan Goals: stones Health Concerns: stones Plan of Treatment: stones Assessment: stones Patient Instructions: Ureteroscopy (DC)
[2021-12-22 15:54] LABS: Glucose, Whole Blood 165 mg/dL (60-115)
--- NOTE | 2021-12-22 15:56 | PC.NURSE ---
Patient's potassium 12/21 was 5.5, informed the doctor, aware.
--- NOTE | 2021-12-22 19:45 | HO.POSTANES ---
Post Anesthesia Evaluation Post Anesthesia Evaluation Vital Signs: Vital Signs Temp Pulse Resp BP Pulse Ox O2 Del Method 12/22/21 15:40 99.6 F 86 18 173/86 H 93 Room Air 12/22/21 11:18 97 F 83 18 131/61 91 L Room Air Anesthesia: Monitored Mental Status: Awake Pain Control: Satisfactory Nausea/Vomiting: None Hydration: Adequate Anesthesia-Related Issues: No Anes. Related Issues
[2021-12-28 00:03] LABS: Stone Source LEFT URETERAL STONE
== END 2021-12-22 16:37 | disposition home or self-care (01) | DRG 660 ==
LOC: HO.ED 17:00 → HO.SSS 17:10 → HO.EDOVER 18:37 → HO.S3 19:19
PROVIDERS: Physician Assistant; Admitting Provider Urology; Emergency Provider Student in an Organized Health Care Education/Training Program; PCP Internal Medicine Endocrinology, Diabetes & Metabolism; Visit Provider Urology
PROC: 0T778DZ Dilation of Left Ureter with Intraluminal Device, Via Natural or Artificial Opening Endoscopic (ICD-10-PCS; CPT 52356; principal; 2021-12-21 17:30)
DX: N13.2 Hydronephrosis with renal and ureteral calculous obstruction (principal); E87.2 Acidosis; K59.00 Constipation, unspecified; N40.1 Benign prostatic hyperplasia with lower urinary tract symptoms; E11.9 Type 2 diabetes mellitus without complications; Z20.822 Contact with and (suspected) exposure to COVID-19; Z85.51 Personal history of malignant neoplasm of bladder; Z87.442 Personal history of urinary calculi; Z79.84 Long term (current) use of oral hypoglycemic drugs; Z79.899 Other long term (current) drug therapy
CPT/HCPCS: 52356; 36415; 74176; 80048; 80076; 81001; 82365; 82947; 83605; 83690; 83735; 85025; 87040; 87635; 88300; 96361; 96365; 96366; 96375; 99284; 99285; C1758; C1769; C2617; J1885; J2370; J2405; J2543; J3010; Q9967

== ENCOUNTER 2021-12-28 10:05 | Outpatient (REF) | payer MEDICARE, OTHER, SELFPAY ==
[2021-12-28 17:11] LABS: Urine Cytology See Pathology rpt
== END 2021-12-28 10:06 | disposition home or self-care (01) ==
LOC: HO.LAB 10:05
PROVIDERS: Visit Provider Urology
DX: C67.2 Malignant neoplasm of lateral wall of bladder (principal)
CPT/HCPCS: 52310; 88112; 99212

== ENCOUNTER 2022-02-04 11:28 | Outpatient (REF) | payer MEDICARE, OTHER, SELFPAY ==
--- NOTE | ~2022-02-04 | US_ITS ---
EXAMINATION: US RETROPERITONEAL LIMITED (RENAL ONLY) CLINICAL INFORMATION: Calculus of kidney, left stent removal 12/24/2021. COMPARISON: CT abdomen, pelvis 12/21/2021, ultrasound renal 02/01/2015 TECHNIQUE: Ultrasound images were obtained of the bilateral kidneys. Limited visualization due to bowel gas and body habitus. FINDINGS: RIGHT KIDNEY: 11.7 x 5.6 x 7.0 cm (SAG x AP x TRV). 3.6 x 3.3 x 3.6 cm upper pole cyst appears simple. Mid pole calculi measure 0.4 cm, 0.3 cm, and 0.6 cm. Mild focal fullness lower pole collecting system. Limited visualization. LEFT KIDNEY: 10.8 x 4.4 x 4.7 cm (SAG x AP x TRV). Multiple left renal calculi with examples in the upper pole measuring 0.5 cm and 0.3 cm. Mid pole calculi measure 0.4 cm. Lower pole calculi measure 0.4 cm, 0.5 cm, 0.2 cm and 0.3 cm. Mild fullness of the left renal collecting system. Limited visualization. 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 US/US renal BI IMPRESSION: 1. Right renal 3.6 cm upper pole cyst appears simple. 2. Right renal calculi with mild fullness of the right lower pole collecting system. 3. Left renal calculi with mild fullness of the left renal collecting system. 4. 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
== END 2022-02-04 11:29 | disposition home or self-care (01) ==
LOC: HO.US 11:28
PROVIDERS: Visit Provider Urology
DX: N13.2 Hydronephrosis with renal and ureteral calculous obstruction (principal)
CPT/HCPCS: 76775

== ENCOUNTER → 2022-02-26 15:03 | Outpatient (BNVA) | payer MEDICARE, OTHER, SELFPAY | PROVIDERS: PCP Internal Medicine Endocrinology, Diabetes & Metabolism; Visit Provider Urology | DX: C67.2 Malignant neoplasm of lateral wall of bladder (principal); N20.0 Calculus of kidney | CPT/HCPCS: Q3014 ==

== ENCOUNTER 2022-06-19 07:59 | Outpatient (REF) | payer MEDICARE, OTHER, SELFPAY ==
--- NOTE | ~2022-06-19 | US_ITS ---
EXAMINATION: US RETROPERITONEAL LIMITED (RENAL ONLY) CLINICAL INFORMATION: Calculus of kidney. COMPARISON: Renal ultrasound 02/04/2022 and 02/01/2015. CT abdomen and pelvis 12/21/2021. X-ray abdomen KUB 04/19/2015. TECHNIQUE: Real-time imaging of the kidneys. FINDINGS: RIGHT KIDNEY: 11.4 x 5.5 x 5.1 cm (SAG x AP x TRV). The kidney is normal in size, contour, and echogenicity. Renal cortical thickness is normal. A few sub-5 mm nonobstructing renal calculi are noted. There is no hydronephrosis of the right kidney. 3.7 cm simple appearing upper pole cyst is noted for which no follow-up imaging is routinely warranted. LEFT KIDNEY: 10.8 x 4.9 x 3.4 cm (SAG x AP x TRV). The kidney is normal in size, contour, and echogenicity. Renal cortical thickness is normal. A few subcentimeter nonobstructing calculi are noted within the left kidney, the largest measuring 5 mm. There is no hydronephrosis. US/US renal BI IMPRESSION: Tiny bilateral nonobstructing renal calculi. No hydronephrosis of either kidney.
== END 2022-06-19 08:00 | disposition home or self-care (01) ==
LOC: HO.US 07:59
PROVIDERS: PCP Internal Medicine Endocrinology, Diabetes & Metabolism; Visit Provider Urology
DX: N20.0 Calculus of kidney (principal)
CPT/HCPCS: 76775

== ENCOUNTER → 2022-06-26 15:07 | Outpatient (BNVA) | payer MEDICARE, OTHER, SELFPAY | PROVIDERS: PCP Internal Medicine Endocrinology, Diabetes & Metabolism; Visit Provider Urology | DX: N20.0 Calculus of kidney (principal); C67.2 Malignant neoplasm of lateral wall of bladder | CPT/HCPCS: Q3014 ==

== ENCOUNTER 2022-08-21 08:40 | Outpatient (REF) | payer MEDICARE, OTHER, SELFPAY ==
[2022-08-21 18:50] LABS: Urine Cytology See Pathology rpt
== END 2022-08-21 08:41 | disposition home or self-care (01) ==
LOC: HO.LAB 08:40
PROVIDERS: PCP Internal Medicine Endocrinology, Diabetes & Metabolism; Visit Provider Urology
DX: C67.2 Malignant neoplasm of lateral wall of bladder (principal); N20.0 Calculus of kidney
CPT/HCPCS: 52000; 88112; 99212

== ENCOUNTER 2023-03-27 07:40 | Outpatient (REF) | payer MEDICARE, OTHER, SELFPAY ==
--- NOTE | ~2023-03-27 | US_ITS ---
EXAMINATION: US RETROPERITONEAL LIMITED (RENAL ONLY) CLINICAL INFORMATION: Calculus of kidney. COMPARISON: Renal ultrasound 06/19/2022 and 02/04/2022. CT abdomen and pelvis 12/21/2021. X-ray KUB 04/19/2015 and 04/05/2015. TECHNIQUE: Real-time imaging of the kidneys. Limited visualization due to bowel gas. FINDINGS: RIGHT KIDNEY: 11.1 x 6.4 x 6.2 cm (SAG x AP x TRV). No hydronephrosis. Multiple tiny renal calculi, largest 0.4 cm upper and lower pole. Renal cortical thickness is normal. Limited visualization. LEFT KIDNEY: 10.7 x 4.9 x 4.7 cm (SAG x AP x TRV). No hydronephrosis. Multiple tiny renal calculi, largest 0.8 cm upper pole. Renal cortical thickness is normal. Limited visualization. US/US renal BI IMPRESSION: Multiple calculi scattered throughout bilateral kidneys, largest 0.8 cm upper pole left kidney.
== END 2023-03-27 07:41 | disposition home or self-care (01) ==
LOC: HO.US 07:40
PROVIDERS: Visit Provider Urology
DX: N20.0 Calculus of kidney (principal)
CPT/HCPCS: 76775

== ENCOUNTER 2023-04-09 09:04 | Outpatient (AMB) | payer MEDICARE, OTHER, SELFPAY ==
--- NOTE | 2023-04-09 09:05 | MHC.OFFVIS ---
Intake Intake Visit Reasons: 6M US(set) Intake Note: Patient is Present for Telephone Follow Up Ultrasound Urology Med: Vitamin B6 Antibiotic Allergy: None Blood Thinner: None US Done- 03/27/23 Allergies No Known Allergies [No Known Allergies*] Allergy (Verified 04/09/23 09:06) HPI HPI Comments History of Present Illness Details Avila is a very pleasant male. He is a patient of Dr. Deleon. She is seen for the following urologic condition - bladder cancer - lower urinary tract symptoms - nephrolithiasis Telemedicine Evaluation 15 min Consultation [employer] [facility]aliyah Video attempted Stone follow-up Multiple small stones on US Bladder cancer initial diagnosis [address] Joel 2015 Pathology - TURBT low-grade superficial Immunotherapy - prior BCG with induction x2 - 2016 and 2017 Associated bilateral nephrolithiasis Cystoscopy 08/18 NAD, 06/19 NAD, 08/20 NAD Lower urinary tract symptoms Prior TURP Effective emptying Nephrolithiasis Intervention - 12/20 left USR Stone composition - 12/20 uric acid 80% Imaging - 12/20 CT scan left proximal ureter 5 mm stone, multiple punctate stones - 01/19 renal ultrasound bilateral small stones 3 mm multiple - 06/20 renal ultrasound bilateral small stones - 03/22 renal ultrasound multiple bilateral small stones PFSH Medical History 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 Diabetes mellitus, type II Malignant neoplasm of lateral wall of urinary bladder Benign prostatic hyperplasia with lower urinary tract symptoms History of bladder cancer Surgical History History of surgery Social History Housing: House Patient Tobacco Use Status: Never used Tobacco service: Yes Current occupational status: retired Review of Systems Const All systems reviewed & are unremarkable except as noted in HPI and below Reports no additional complaints Resp Reports no additional complaints GI Reports no additional complaints Reports as per HPI Musc Reports no additional complaints Physical Exam Telemedicine evaluation Appropriate responses Regular breathing rate and rhythm HEENT Head: Yes normal to inspection Ears: hearing grossly normal bilaterally Eyes General: appearance normal, both eyes and all related structures Neck Neck: Yes normal visual inspection Chest Chest palpation & inspection: normal inspection of the chest Resp Effort & Inspection: normal respiratory effort and able to speak in complete sentences Assessment & Plan Assessment & Plan (1) Nephrolithiasis: Code(s): N20.0 - Calculus of kidney Plan Six month follow-up cysto, imaging Orders: Orders US renal BI 6 Months N20.0 - Calculus of kidney Medications: New potassium citrate ER 20 mEq (2 x 10 mEq (1,080 mg)) PO BID 90 days 360 tabs 1RF N20.0 - Calculus of kidney Changed From pyridoxine (vitamin B6) 100 mg PO DAILY 90 days 90 tabs 1RF N20.0 - Calculus of kidney To pyridoxine (vitamin B6) 50 mg PO DAILY 90 days 90 tabs 1RF N20.0 - Calculus of kidney Refilled allopurinol 100 mg PO DAILY 90 days 90 tabs 1RF N20.0 - Calculus of kidney Patient Instructions: Imaging studies, laboratory and physical exam results were discussed and reviewed in detail. No major barriers to patient understanding were identified. An opportunity to ask questions regarding the treatment plan was provided. All questions were answered. The patient expressed understanding and agreement with the above treatment plan. The patient is aware they should contact our office by phone for worsening of their current condition or the appearance of new urologic symptoms. Compliance is encouraged with any medications and followup testing that is ordered. It is a privilege to participate in the urologic care of your patient. If you have any questions or concerns regarding treatment for the above conditions, or other urologic issues, please do not hesitate to contact me. The office telephone contact is [phone]. This note is constructed using voice recognition software. While every effort has been made to ensure accuracy rounder and backer errors may have been included. Yours sincerely, Dr Silvino Loera MD, [facility] - Urology Providers of Expert, Compassionate Care for the Genitourinary System Telehealth Telehealth Location of provider rendering services: practice address Location of patient: address on file Patient Identification confirmed using: Name, : Yes Telehealth method: video Patient verbally consented to treatment: Yes Patient verbally consented to billing insurance company: Yes Patient informed of any privacy concerns related to visit: Yes Coding Level of Care Code Tele Est Pt Level 3 (92080) Diagnoses Nephrolithiasis N20.0
== END 2023-04-09 09:48 | disposition home or self-care (01) ==
LOC: HO.HUSH 09:04
PROVIDERS: PCP Internal Medicine Endocrinology, Diabetes & Metabolism; Visit Provider Urology
DX: N20.0 Calculus of kidney (principal)
CPT/HCPCS: 99442

== ENCOUNTER → 2023-04-09 09:04 | Outpatient (BNVA) | payer MEDICARE, OTHER, SELFPAY | PROVIDERS: PCP Internal Medicine Endocrinology, Diabetes & Metabolism; Visit Provider Urology ==

== ENCOUNTER 2023-09-30 07:42 | Outpatient (REF) | payer MEDICARE, OTHER, SELFPAY ==
--- NOTE | ~2023-09-30 | US_ITS ---
EXAMINATION: US RETROPERITONEAL LIMITED (RENAL ONLY) CLINICAL INFORMATION: Calculus of kidney. COMPARISON: Ultrasound renal 03/27/2023 and 06/19/2022. CT abdomen and pelvis 12/21/2021. X-ray KUB 04/19/2015 and 04/05/2015. TECHNIQUE: Real-time imaging of the kidneys. FINDINGS: RIGHT KIDNEY: 12.1 x 6.2 x 6.0 cm (SAG x AP x TRV). The kidney is normal in size, contour, and echogenicity. Renal cortical thickness is normal. No hydronephrosis. 3.9 x 3.7 x 4.0 cm exophytic upper pole and 0.9 x 0.8 x 0.8 cm lower pole cysts are seen, no imaging follow-up is recommended. There are multiple nonobstructing renal calculi, the largest are seen in the upper pole 0.4 x 0.4 x 0.3 cm and upper pole 0.5 x 0.4 x 0.5 cm. LEFT KIDNEY: 10.8 x 4.0 x 4.8 cm (SAG x AP x TRV). The kidney is normal in size, contour, and echogenicity. Renal cortical thickness is normal. No hydronephrosis. 1.5 x 1.3 x 1.2 cm cyst is seen in the mid kidney, 1.0 x 0.9 x 1.0 cm with a cyst since septum is seen in the mid to upper pole, no imaging follow-up is recommended. There are multiple nonobstructing renal calculi, the largest are seen in the mid kidney 0.4 x 0.3 x 0.2 cm in upper pole 0.4 x 0.4 x 0.5 cm. US/US renal BI IMPRESSION: Multiple bilateral nonobstructing renal calculi.
== END 2023-09-30 07:43 | disposition home or self-care (01) ==
LOC: HO.US 07:42
PROVIDERS: PCP Internal Medicine Endocrinology, Diabetes & Metabolism; Visit Provider Urology
DX: N20.0 Calculus of kidney (principal)
CPT/HCPCS: 76775

== ENCOUNTER 2023-10-01 08:48 | Outpatient (AMB) | payer MEDICARE, OTHER, SELFPAY ==
--- NOTE | 2023-10-01 09:02 | MHC.OFFVIS ---
Intake Visit Reasons: cysto/US(us 09/29) Intake Note: Patient is Present for Cystoscopy/Ultrasound Follow Up/Bladder Ca Urology Med: Allopurinol, Vitamin B6, Potassium Antibiotic Allergy:None Blood Thinner:None URO- G Disposable Cystoscope lot:[id number] exp:05/15/26 Side Framer Required: No Allergies No Known Allergies [No Known Allergies*] Allergy (Verified 04/09/23 09:06) Medication List - Last Reconciled 10/01/23 by Silvino Loera MD allopurinol 100 mg PO DAILY 90 days atorvastatin 80 mg PO DAILY dapagliflozin propanediol (Farxiga) 5 mg PO DAILY glipizide ER 5 mg PO DAILY lisinopril 10 mg PO DAILY metformin 1,000 mg PO BIDWM potassium citrate ER 10 mEq PO BID 90 days pyridoxine (vitamin B6) 50 mg PO DAILY 90 days HPI Comments Details: Avila is a very pleasant male. He is a patient of Dr. Deleon. She is seen for the following urologic condition - bladder cancer - lower urinary tract symptoms - nephrolithiasis Here for cystoscopy yearly No abnormality seen Continue with potassium citrate 10 mEq b.i.d. Bladder cancer initial diagnosis [address] Joel 2015 Pathology - TURBT low-grade superficial Immunotherapy - prior BCG with induction x2 - 2016 and 2017 Associated bilateral nephrolithiasis Cystoscopy 08/18 NAD, 06/19 NAD, 08/20 NAD Lower urinary tract symptoms Prior TURP Effective emptying Nephrolithiasis Intervention - 12/20 left USR Stone composition - 12/20 uric acid 80% Imaging - 12/20 CT scan left proximal ureter 5 mm stone, multiple punctate stones - 01/19 renal ultrasound bilateral small stones 3 mm multiple - 06/20 renal ultrasound bilateral small stones - 03/22 renal ultrasound multiple bilateral small stones - 10/21 renal ultrasound small stones PFSH Medical History 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 Diabetes mellitus, type II Malignant neoplasm of lateral wall of urinary bladder Benign prostatic hyperplasia with lower urinary tract symptoms History of bladder cancer Surgical History History of surgery Social History Housing: House Patient Tobacco Use Status: Never used Tobacco service: Yes Current occupational status: retired Review of Systems Const Denies chills and Denies fever(s) Card Reports no additional complaints and Denies syncope Resp Denies cough GI Denies abdominal pain and Denies heartburn Reports as per HPI and Denies change in libido Neuro Denies syncope Psych Denies change in libido Endo Denies change in libido Physical Exam Const General: cooperative, healthy appearing, comfortable and no acute distress Orientation/consciousness: patient oriented x3 HEENT Face and sinus: Yes normal facial exam Mouth: moist mucous membranes Neck Neck: Yes normal visual inspection, Yes full ROM and Yes trachea midline Chest Chest palpation & inspection: normal inspection of the chest Resp Effort & Inspection: normal respiratory effort, able to speak in complete sentences and no respiratory distress GI Inspection: Yes normal to inspection Back/Spine/Pelvis Cervical Spine: normal cervical lordosis Thoracic/Lumbar Spine: thoracic and lumbar spine normal to inspection Skin General skin exam: no rashes or lesions noted Neuro General: patient oriented x3, gait normal, tone normal and moves all extremities Extrem General: Yes normal to inspection and Yes capillary refill normal Office Procedures Cystoscopy Consent Discussed risk and benefit or proposed procedure with the patient. Information consent for procedure given to the patient. Discussed technical aspects, risks, benefits and alternatives in full. Addressed all of the patient's questions and concerns regarding the procedure. The patient demonstrated knowledge and understanding. They wish to proceed with this procedure. Preparation The patient was prepped in the usual manner. A ham doctor was present and in the room. Genitalia was prepped with betadine solution in a sterile manner. Lidocaine Jelly 2% was placed into the urethra and 16Fr flexible Olympus cystoscope was inserted into the meatus after adequate lubrication. Procedure Cystoscopy performed using a disposable Urovue digital 16 Latvian cystoscope. Meatus uncircumcised Urethra anterior and posterior urethra normal Prostatic Urethra open prostate Bladder examination with retroflexion of cystoscope Bladder Orifices normal shape and position Bladder Capacity medium Trabeculations grade 2 Cellule Formation -- Diverticulum Formation - Mucosal Erythema - Bladder Tumor - 64283-[id number] DISPOSABLE SCOPE URO-G FLEXIBLE SCOPE Procedure code (CPT) selection complete Office Meds lidocaine HCl 2 % mucosal jelly in applicator Performing Provider: Silvino Loera MD Performing Location[facility] [place] [facility] Administered by: Shaun Jones LPN on 10/01/23 09:30 Dose Route Admin Location Dispensed Lot Number Expiration Date NDC Fish Tender 10 mL intra-urethral 10 mL nitrofurantoin monohydrate/macrocrystals 100 mg capsule Performing Provider: Silvino Loera MD Performing Location: [facility] [place] [facility] Administered by: Shaun Jones LPN on 10/01/23 09:30 Dose Route Admin Location Dispensed Lot Number Expiration Date NDC Fish Tender 100 mg PO 1 cap naproxen 500 mg tablet Performing Provider: Silvino Loera MD Performing Location: [facility] [place] [facility] Administered by: Shaun Jones LPN on 10/01/23 09:30 Dose Route Admin Location Dispensed Lot Number Expiration Date NDC Fish Tender 500 mg PO 1 tab Results AMB Urinalysis, Automated UA Leukoctes 0 Ai/uL Last Edit by CORI Edward on 10/01/23 09:18 UA Nitrite Negative Last Edit by CORI Edward on 10/01/23 09:18 UA Urobilinogen 0.2 mg/dL Last Edit by CORI Edward on 10/01/23 09:18 UA Protein 15 mg/dL Last Edit by CORI Edward on 10/01/23 09:18 UA pH 5.0 Last Edit by CORI Edward on 10/01/23 09:18 UA Blood 0 Carlo/uL Last Edit by CORI Edward on 10/01/23 09:18 UA Specific Duke 1.020 Last Edit by CORI Edward on 10/01/23 09:18 UA Ketone Negative Last Edit by CORI Edward on 10/01/23 09:18 UA Bilirubin 0 mg/dL Last Edit by CORI Edward on 10/01/23 09:18 UA Glucose 0 mg/dL Last Edit by CORI Edward on 10/01/23 09:18 Results Reviewed Results Reviewed: Laboratory Last Values Urine pH (Auto) 5.0 10/01/23 09:05 Specific Duke (Auto) 1.020 10/01/23 09:05 Urine Protein (Auto) 15 mg/dL 10/01/23 09:05 Glucose (UA)(Auto) 0 mg/dL 10/01/23 09:05 Urine Ketones (Auto) Negative 10/01/23 09:05 Urine Blood (Auto) 0 Carlo/uL 10/01/23 09:05 Urine Nitrite (Auto) Negative 10/01/23 09:05 Urine Bilirubin (Auto) 0 mg/dL 10/01/23 09:05 Urine Urobilinogen (Auto) 0.2 mg/dL 10/01/23 09:05 Leukocyte Esterase (Auto) 0 Ai/uL 10/01/23 09:05 Assessment & Plan Assessment & Plan (1) Nephrolithiasis: Code(s): N20.0 - Calculus of kidney Category: Medical (2) Benign prostatic hyperplasia with lower urinary tract symptoms: Code(s): N40.1 - Benign prostatic hyperplasia with lower urinary tract symptoms Category: Medical (3) Malignant neoplasm of lateral wall of urinary bladder: Code(s): C67.2 - Malignant neoplasm of lateral wall of bladder Category: Medical Plan Continue nephrolithiasis 1 year follow-up imaging 1 year follow-up cystoscopy Orders: Orders AMB Cystoscopy 10/01/23 C67.2 - Malignant neoplasm of lateral wall of bladder FISH Bladder Cancer 10/01/23 C67.2 - Malignant neoplasm of lateral wall of bladder AMB Urinalysis Automated 10/01/23 Z13.9 - Encounter for screening, unspecified, C67.2 - Malignant neoplasm of lateral wall of bladder US renal BI 12 Months N20.0 - Calculus of kidney Medications: Changed From potassium citrate ER 20 mEq (2 x 10 mEq (1,080 mg)) PO BID 90 days 360 tabs 1RF N20.0 - Calculus of kidney To potassium citrate ER 10 mEq PO BID 180 tabs 3RF 90 days N20.0 - Calculus of kidney Patient Instructions: Imaging studies, laboratory and physical exam results were discussed and reviewed in detail. No major barriers to patient understanding were identified. An opportunity to ask questions regarding the treatment plan was provided. All questions were answered. The patient expressed understanding and agreement with the above treatment plan. The patient is aware they should contact our office by phone for worsening of their current condition or the appearance of new urologic symptoms. Compliance is encouraged with any medications and followup testing that is ordered. It is a privilege to participate in the urologic care of your patient. If you have any questions or concerns regarding treatment for the above conditions, or other urologic issues, please do not hesitate to contact me. The office telephone contact is [phone]. This note is constructed using voice recognition software. While every effort has been made to ensure accuracy parts delivery driver errors may have been included. Yours sincerely, Dr Silvino Loera MD, [facility] - Urology Providers of Expert, Compassionate Care for the Genitourinary System Coding Level of Care Code Est Pt Level 3 (25253) Diagnoses Nephrolithiasis N20.0 Benign prostatic hyperplasia with lower urinary tract symptoms N40.1 Malignant neoplasm of lateral wall of urinary bladder C67.2 CPT Codes Cystoscopy - CPT: 63930-Asqelfencj ([id number])
== END 2023-10-01 09:53 | disposition home or self-care (01) ==
PROVIDERS: PCP Internal Medicine Endocrinology, Diabetes & Metabolism; Visit Provider Urology
DX: C67.2 Malignant neoplasm of lateral wall of bladder (principal); Z13.9 Encounter for screening, unspecified
CPT/HCPCS: 52000; 99213

== ENCOUNTER 2023-10-01 08:48 | Outpatient (REF) | payer MEDICARE, OTHER, SELFPAY | END 2023-10-01 08:49 | disposition home or self-care (01) | LOC: HO.LAB 08:48 | PROVIDERS: PCP Internal Medicine Endocrinology, Diabetes & Metabolism; Visit Provider Urology | DX: C67.2 Malignant neoplasm of lateral wall of bladder (principal); N20.0 Calculus of kidney | CPT/HCPCS: 52000; 81003; 88121; 99212 ==

== ENCOUNTER 2024-03-14 05:11 | Inpatient (IN) | payer MEDICARE, OTHER, SELFPAY ==
[2024-03-14] VITALS (10 sets, daily range): BP systolic 100–121; BP diastolic 58–88; PULSE 84–110; RESP 10–25; TEMP 36.3–36.8; O2SAT 95–100; BMI 30.9
--- NOTE | ~2024-03-14 | CT_ITS ---
EXAMINATION: CT CERVICAL SPINE WITHOUT CONTRAST; UNENHANCED CT OF THE HEAD. CLINICAL INFORMATION: Fall. Head strike. COMPARISON: None TECHNIQUE: Routine unenhanced CT of the head with multiple coronal and sagittal reformatted images; routine unenhanced CT of the cervical spine with multiple coronal and sagittal reformatted images. This CT examination was performed using dose optimization techniques as appropriate, variously including the following: *Automated exposure control *Adjustment of mA and/or kV according to patient size (this includes techniques or standardized protocols for targeted exams where dose is matched to indication/reason for exam; i.e. extremities or head) *Use of iterative reconstruction technique DLP: 1270 mGy-cm FINDINGS: CT head: Moderate diffuse ventral prominence of ventricles and sulci. No intracranial hemorrhage, tumors or acute infarcts identified. Mild scattered subcortical and periventricular white matter patchy hypodensities. Bilateral ocular lens replacements. Mild focal right parietal extracranial soft tissue inflammatory changes. Partial opacification of the left lateral aspect of the sphenoid sinus. Mastoid air cells and middle ear cavities are clear. Mild hyperostosis frontalis interna. CT cervical spine: No fractures or acute-appearing subluxations of the cervical spine noted. Moderate intervertebral disc space narrowing posterior endplate osteophytosis C4-C5, C5-C6 and C6-C7. No prevertebral fluid collections or soft tissue inflammatory changes. Normal appearance of the thyroid. Moderate-marked bilateral carotid bulb calcific atherosclerotic plaques. Partial visualization of a dependent layering right pleural effusion (-60 Hounsfield unit, likely representing some degree of artifact resulting in low density). CT/CT cervical spine wo IV con IMPRESSION: CT HEAD: 1. No acute intracranial abnormalities. 2. Mild white matter chronic small vessel ischemic changes. 3. Mild focal right parietal extracranial soft tissue inflammatory changes. CT CERVICAL SPINE: 1. No acute abnormalities. 2. Multilevel chronic spondylosis. 3. Moderate-marked bilateral carotid bulb calcific atherosclerotic plaques. Electronically signed by: Bran Davis MD 03/14/2024 06:54 AM OPAL YU
--- NOTE | ~2024-03-14 | US_ITS ---
PROCEDURE: Ultrasound-guided right thoracentesis History: Right pleural effusion Specimen: Light pink-tinged serous fluid sent Access: 5 Belgian Yueh catheter Medications: 10 mL 1% lidocaine TECHNIQUE/FINDINGS Appropriate preprocedural clinical history and imaging studies were reviewed. The patient was brought to the department and placed in the left lateral decubitus position. Ultrasound images of the right thorax were obtained to localize a moderate pleural effusion. Permanent ultrasound images were saved. Risks and benefits and possible complications were discussed with the patient's son/healthcare proxy via telephone and consent form was signed. An area of the patient's right back was prepped and draped in usual sterile fashion. 10 mL of 1% lidocaine was used to obtain local anesthesia of the skin and deeper tissues. A standard small bore needle was introduced to sample pleural fluid and demonstrate a safe access route. A 5 Belgian Yueh catheter was then used to access the pleural cavity. 1000 ml of pink-tinged serous fluid fluid was removed passively. The catheter was then removed. A dressing was applied. There were no immediate complications. US/US thoracentesis Impression: Ultrasound-guided right thoracentesis Electronically signed by: Milind Calderon MD 03/23/2024 03:38 PM OPAL
--- NOTE | ~2024-03-14 | CT_ITS ---
EXAMINATION: CT CERVICAL SPINE WITHOUT CONTRAST; UNENHANCED CT OF THE HEAD. CLINICAL INFORMATION: Fall. Head strike. COMPARISON: None TECHNIQUE: Routine unenhanced CT of the head with multiple coronal and sagittal reformatted images; routine unenhanced CT of the cervical spine with multiple coronal and sagittal reformatted images. This CT examination was performed using dose optimization techniques as appropriate, variously including the following: *Automated exposure control *Adjustment of mA and/or kV according to patient size (this includes techniques or standardized protocols for targeted exams where dose is matched to indication/reason for exam; i.e. extremities or head) *Use of iterative reconstruction technique DLP: 1270 mGy-cm FINDINGS: CT head: Moderate diffuse ventral prominence of ventricles and sulci. No intracranial hemorrhage, tumors or acute infarcts identified. Mild scattered subcortical and periventricular white matter patchy hypodensities. Bilateral ocular lens replacements. Mild focal right parietal extracranial soft tissue inflammatory changes. Partial opacification of the left lateral aspect of the sphenoid sinus. Mastoid air cells and middle ear cavities are clear. Mild hyperostosis frontalis interna. CT cervical spine: No fractures or acute-appearing subluxations of the cervical spine noted. Moderate intervertebral disc space narrowing posterior endplate osteophytosis C4-C5, C5-C6 and C6-C7. No prevertebral fluid collections or soft tissue inflammatory changes. Normal appearance of the thyroid. Moderate-marked bilateral carotid bulb calcific atherosclerotic plaques. Partial visualization of a dependent layering right pleural effusion (-60 Hounsfield unit, likely representing some degree of artifact resulting in low density). CT/CT head/brain wo IV con IMPRESSION: CT HEAD: 1. No acute intracranial abnormalities. 2. Mild white matter chronic small vessel ischemic changes. 3. Mild focal right parietal extracranial soft tissue inflammatory changes. CT CERVICAL SPINE: 1. No acute abnormalities. 2. Multilevel chronic spondylosis. 3. Moderate-marked bilateral carotid bulb calcific atherosclerotic plaques. Electronically signed by: Bran Davis MD 03/14/2024 06:54 AM OPAL
--- NOTE | ~2024-03-14 | US_ITS ---
EXAMINATION: US ABDOMEN LIMITED CLINICAL INFORMATION: Elevated LFTs. Question cholecystitis. COMPARISON: CT abdomen and pelvis 03/14/2024. Renal ultrasound 09/30/2023 and 03/27/2023. X-ray abdomen 04/19/2015 and 04/05/2015. TECHNIQUE: Real-time imaging of the right upper quadrant abdominal viscera. FINDINGS: PANCREAS: Mostly obscured by gas. Limited imaging normal. LIVER: The liver is normal in size. The liver contour is normal. There is diffuse increased liver parenchymal echogenicity, suggestive of hepatic steatosis. No focal hepatic lesion. There is no intrahepatic biliary duct dilatation seen. Negative sonographic Lee sign. GALLBLADDER: The gallbladder is suboptimally distended due to nonfasting state. No evidence of sludge or definite calculus. Mild wall thickening is present with areas of ringdown artifact consistent with adenomyomatosis. There are no masses. COMMON BILE DUCT: Normal in caliber measuring 0.3 cm in diameter. FREE FLUID: There is small volume ascites in the perihepatic region, extending into the gallbladder fossa, and there is a right pleural effusion. US/US abdomen limited IMPRESSION: 1. Adenomyomatosis of the gallbladder. No calculi. No imaging evidence of acute cholecystitis. 2. Mildly echogenic liver parenchyma, most likely mild steatosis or mild hepatocellular disease. No focal abnormality. 3. No intra or extra hepatic biliary dilatation. 4. Small volume ascites and right pleural effusion. Electronically signed by: Hari Coronado MD 03/18/2024 01:35 PM [facility]
--- NOTE | ~2024-03-14 | US_ITS ---
EXAMINATION: US TRIPLEX LOWER EXTREMITY, LEFT CLINICAL INFORMATION: Asymmetric swelling COMPARISON: None available. TECHNIQUE: Color-flow triplex imaging with spectral analysis and compression Doppler were performed on the left lower extremity. FINDINGS: Respiratory variation, normal compression and augmented flow are noted throughout the left lower extremity. The visualized common femoral vein, superficial femoral vein, profunda femoral vein, popliteal vein and midcalf peroneal and posterior tibial venous segments show no evidence of deep venous thrombosis. There is no Romero's cyst. US/US venous duplex LE LT IMPRESSION: No evidence of deep venous thrombosis involving the left lower extremity. Electronically signed by: Isa Painting MD 03/19/2024 04:40 PM EST
--- NOTE | ~2024-03-14 | XR_ITS ---
EXAMINATION: XR CHEST CLINICAL INFORMATION: hypoxia COMPARISON: 03/14/2024 and 09/16/2017 TECHNIQUE: AP upright view of the chest was obtained. Nonstandard positioning. FINDINGS: Moderate-sized bilateral pleural effusions. Prominence of the heart, mediastinum and rajan is likely vascular in etiology. Recent CT with pronounced aortic valve calcifications. Consider echocardiography. Nonspecific basal consolidation. Cannot exclude aspiration or pneumonia. XR/XR chest 1V IMPRESSION: Moderate-sized bilateral pleural effusions with nonspecific bibasal consolidation. Cardiomegaly with aortic valve disease. Consider echocardiography. Electronically signed by: Roldan Correia MD 03/21/2024 12:48 PM [facility]
--- NOTE | ~2024-03-14 | CT_ITS ---
EXAMINATION: CT ABDOMEN AND PELVIS WITHOUT CONTRAST CLINICAL INFORMATION: LFTs elevation COMPARISON: 12/21/2021 TECHNIQUE: Multidetector volumetric imaging was performed from the superior aspect of the liver through the pubic symphysis. Sagittal and coronal reformatted images were obtained on the technologist's workstation. This CT examination was performed using dose optimization techniques as appropriate, variously including the following: *Automated exposure control *Adjustment of mA and/or kV according to patient size (this includes techniques or standardized protocols for targeted exams where dose is matched to indication/reason for exam; i.e. extremities or head) *Use of iterative reconstruction technique DLP: 796 mGy-cm FINDINGS: LUNG BASES: Extensive bibasilar moderate size layering pleural effusions and bibasilar lower lobe atelectasis on a compressive basis. No pericardial fluid or discrete lesion otherwise. LIVER, GALLBLADDER, AND BILIARY TREE: Probable early cirrhotic morphology on this nonenhanced study without focal abnormality. No biliary ductal dilatation. Small gallstones without acute inflammatory changes within the gallbladder lumen. The gallbladder wall may be mildly thickened. No distention. PANCREAS: Unremarkable. SPLEEN: Unremarkable. ADRENAL GLANDS: Unremarkable. KIDNEYS AND URETERS: Atrophic left kidney without hydronephrosis. Right kidney notable for cortical cysts. BLADDER: No discrete lesion. Air within the bladder lumen presumed iatrogenic. No gross fistula. GASTROINTESTINAL TRACT: Relatively pronounced diverticular disease without acute inflammatory changes especially within the sigmoid colon. No small bowel pathology. Stomach grossly normal decompressed. ABDOMINAL WALL: No significant hernia is appreciated. LYMPH NODES: Normal. VASCULAR: Severe atherosclerosis of the evaluated with generalized ectasia. Infrarenal abdominal aorta measures up to 2.7 cm. PELVIC VISCERA: Unremarkable. OSSEOUS STRUCTURES: Changes opacities again noted right pelvis. CT/CT abdomen pelvis wo IV con IMPRESSION: 1. No biliary ductal dilatation. 2. Gallstones and possible mild gallbladder wall thickening. No acute inflammatory changes. 3. Moderate size bilateral pleural effusions and bibasilar atelectasis. 4. Additional chronic findings as above. 5. Air within the bladder lumen presumed iatrogenic. Correlate with any recent catheterization. Fleischner guidelines were followed. Electronically signed by: Oswald Carvajal MD 03/14/2024 11:07 AM [facility]
--- NOTE | ~2024-03-14 | XR_ITS ---
EXAMINATION: XR CHEST CLINICAL INFORMATION: o2 desaturations COMPARISON: 09/16/2017 TECHNIQUE: Semierect upright 7:30 AM portable view of the chest was obtained. FINDINGS: New since baseline is evidence for congestive heart failure with early interstitial pulmonary edema. Heart size remains within the upper limits of normal. Significant peribronchial thickening and small amount of pleural fluid. No focal consolidation grossly. Retrocardiac region is not well demonstrated due to overall underpenetration portable technique. XR/XR chest 1V IMPRESSION: Developing congestive heart failure with early interstitial pulmonary edema. Electronically signed by: Oswald Carvajal MD 03/14/2024 07:53 AM [facility]
--- NOTE | 2024-03-14 05:51 | ECG_ITS ---
Test Reason : FALL Blood Pressure : / mmHG Vent. Rate : 088 BPM Atrial Rate : 000 BPM P-R Int : 000 ms QRS Dur : 132 ms QT Int : 396 ms P-R-T Axes : 000 -69 109 degrees QTc Int : 479 ms Atrial fibrillation Left axis deviation Non-specific intra-ventricular conduction block Minimal voltage criteria for LVH, may be normal variant ( González product ) Inferior infarct (cited on or before 16-SEP-2017) Cannot rule out Anteroseptal infarct (cited on or before 16-SEP-2017) Abnormal ECG When compared with ECG of 16-SEP-2017 15:24, Atrial fibrillation has replaced Sinus rhythm QRS duration has increased Questionable change in initial forces of Anteroseptal leads Inverted T waves have replaced nonspecific T wave abnormality in Lateral leads Referred By: Tabitha Villatoro Electronically Signed By:ONEAL ZAPATA MD
--- NOTE | 2024-03-14 05:52 | ED_ITS ---
HPI - Fall General Chief Complaint: Fall Stated Complaint: Fallw/ H/S, AMS A&Ox2 lac Rback head +thin +collar Time Seen by Provider: 03/14/24 05:49 Source: patient and EMS Mode of arrival: EMS Limitations: no limitations History of Present Illness ED Provider: Dr. Tabitha Villatoro HPI Narrative: Patient comes to the emergency room via ambulance from [facility]. According to the staff, patient was found on the floor awake and alert. The fall was unwitnessed. Patient is known to take Eliquis for atrial fibrillation. Patient has a laceration to the back of the head. Patient is not the best historian, however it seems that he did not lose consciousness. Patient denies pain anywhere. Was noted that while the patient was waiting for his CT scan, patient's oxygen saturation dropped to the mid 70s. Patient quickly recovered. Patient's family at bedside, they state that the patient was discharged from [facility] 2 days ago for CHF exacerbation. Has been at [facility] for a day. Patient denies any chest pain or shortness of breath Related Data Home Medications ?Medication ?Instructions ?Recorded ?Confirmed atorvastatin 80 mg tablet 80 mg PO DAILY 08/10/20 10/01/23 metformin 1,000 mg tablet 1,000 mg PO BIDWM 08/10/20 10/01/23 glipizide 5 mg tablet, extended 5 mg PO DAILY 06/27/21 10/01/23 release 24 hr dapagliflozin propanediol 5 mg 5 mg PO DAILY 12/21/21 10/01/23 tablet (Farxiga) lisinopril 10 mg tablet 10 mg PO DAILY 12/21/21 10/01/23 Previous Rx's ?Medication ?Instructions ?Recorded allopurinol 100 mg tablet 100 mg PO DAILY 90 days #90 tabs 04/09/23 pyridoxine (vitamin B6) 50 mg 50 mg PO DAILY 90 days #90 tabs 04/09/23 tablet potassium citrate 10 mEq (1,080 10 meq PO BID 90 days #180 tabs 10/01/23 mg) tablet,extended release Allergies Allergy/AdvReac Type Severity Reaction Status Date / Time No Known Allergies Allergy Verified 03/14/24 05:31 [No Known Allergies*] Review of Systems 2 Review of Systems: Constitutional : No Weight loss, No Fever, No Chills, No Night Sweats, No Fatigue, No Malaise ENT/Mouth : No Hearing loss, No Ear Pain, No Nasal Congestion, No Sinus Pain, No Hoarseness, No sore throat, No Rhinorrhea, No Swallowing Difficulty Eyes: No Eye Pain, No Swelling, No Redness, No Foreign Body, No Discharge, No Vision Changes Cardiovascular : No Chest Pain, No SOB, No Dyspnea on Exertion, No Orthopnea, No Edema, No Palpitations Respiratory : No Cough, No Sputum, No Wheezing, No Smoke Exposure, No Dyspnea Gastrointestinal : No Nausea, No Vomiting, No Diarrhea, No Constipation, No abdominal Pain, No Hematochezia, No Melena Genitourinary : no irregular bleeding, No Dysuria, No Urinary Frequency, No Hematuria, No Urinary Incontinence, No Urgency, No Flank Pain, No Urinary Flow Changes, No Hesitancy Musculoskeletal : No joint pain, No Myalgias, No Joint Swelling Skin : Laceration to the scalp Neuro : No Weakness, No Numbness, No Paresthesias, No Loss of Consciousness, No Dizziness, No Headache Psych : No Anxiety/Panic, No Depression, No SI/HI/AH/VH, No Social Issues, Heme/Lymph: No Bruising, No Bleeding,No Lymphadenopathy Endocrine : No Polyuria, No Polydipsia, No Temperature Intolerance PMFSH Past Medical History Medical History 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 Diabetes mellitus, type II Malignant neoplasm of lateral wall of urinary bladder Benign prostatic hyperplasia with lower urinary tract symptoms History of bladder cancer Surgical History History of surgery Social History Social History Housing: House Patient Tobacco Use Status: Never used Tobacco Smoked in Last 30 Days: No Use of substances other than those prescribed or required for medical reasons: No Advance Directives: No Advance Directives Information Provided: Yes service: Yes Current occupational status: retired Physical Exam 2 Vital Signs: Vital Signs: Last Vital Signs Temp 98.3 F 03/14/24 07:52 Pulse 92 03/14/24 07:52 Resp 17 03/14/24 07:52 BP 101/70 03/14/24 07:52 Pulse Ox 100 03/14/24 07:52 O2 Del Method Oxymask 03/14/24 07:44 O2 Flow Rate 3 03/14/24 07:44 BMI result Body Mass Index 30.9 Const: Other: Appearance: Alert. Oriented X3. No acute distress. Eyes: Pupils equal, round and reactive to light. ENT: Pharynx normal. Neck: On C-spine precautions, no C-spine tenderness. CVS: Normal heart rate and rhythm. Pulses normal. Normal S1 and S2 Respiratory: No respiratory distress. Breath sounds normal. No Wheezing. No rales Abdomen: Soft and nontender. No rigidity. No distention. Skin: Skin warm and dry. Normal skin color. Normal skin turgor. Patient has an abrasion to the back of the scalp. Patient does not need stitches Extremities: No lower extremity edema. No Lacerations. No Rash Neuro: Oriented X 3. No motor deficit. No sensory deficit. Moving all extremities. No slurred speech. CN 2 through 12 grossly intact Psych: calm, cooperative, normal affect Medical Decision Making Medical Decision Making MDM Narrative: My interpretation of labs: Patient's white blood cell count 8.2, hemoglobin 13.5, hematocrit 43, platelets 198 -of note, patient's chemistries are still pending. Earlier today, the was an error in registering the patient under his real name. Seems that patient was registered twice, once under the 1st name amy Zuleta and a 2nd time under his other name sher -chest x-ray shows pulmonary edema, patient recovering from CHF. Patient was given 10 mg of Lasix. -patient's oxygen saturation drops to the mid 70s, patient currently on 3-5 L of oxygen , saturation 96%. -patient was given Lasix 10 mg, also given Decadron 6 mg IV for COVID. -overall, given the patient's oxygen desaturations with minimal exertion, patient needs to be admitted. Chemistry pending. -sign-out given to my colleague Dr. Quinonez -08:20: Patient tested positive for UTI, ceftriaxone has been started. -of note, patient is on oxygen for COVID, no pneumonia, for this reason itself patient went on the antibiotic. Sepsis not suspected - Differential Diagnosis Differential Diagnoses: The differential diagnosis associated with the presentation includes (Pneumonia, CHF, COVID) Admission/Observation Consideration of admission/observation: Escalation of care including admission/observation considered Lab Data MDM Lab Attestation statement: I reviewed the patient's lab results. 03/14/24 06:12 03/14/24 06:12 Labs: Lab Results 03/14/24 03/14/24 03/14/24 Range/Units 05:33 06:12 06:40 WBC 8.2 (4.8-10.8) X10*3/uL RBC 4.30 L D (4.60-5.80) X10*6/uL Hgb 13.5 L (14.0-18.0) g/dl Hct 43.4 (42.0-52.0) % MCV 100.9 H (80.0-98.0) fL MCH 31.4 (27.0-33.0) pg MCHC 31.1 (31.0-36.0) g/dl RDW 15.7 (11.0-16.0) % Plt Count 188 D (160-400) X10*3/uL MPV 11.2 (9.4-12.4) fL Immature Gran % (Auto) 1.3 H (0.0-0.4) % Neut % (Auto) 79.0 H (45-73) % Lymph % (Auto) 9.6 L (20-40) % Todd % (Auto) 7.0 (2-11) % Eos % (Auto) 2.6 (0-4) % Baso % (Auto) 0.5 (0-2) % Lymph # (Auto) 0.8 L (1.2-4.9) X10*3/uL Todd # (Auto) 0.6 (0.1-1.2) X10*3/uL Eos # (Auto) 0.2 (0.0-0.4) X10*3/uL Baso # (Auto) 0.0 (0.0-0.2) X10*3/uL Abs Immat Gran (auto) 0.11 H (0.00-0.03) X10*3/uL Absolute Neuts (auto) 6.5 (2.0-8.3) x10*3/uL Absolute Nucleated RBC 0.020 H (0.0-0.012) X10*3/uL Nucleated RBC % (auto) 0.2 (0.0-0.2) /100WBC Hold Purple Top SEE NOTE Hold Blue Top SEE NOTE POC Glucose 141 H (60-115) mg/dL Urine Color Urine Appearance Urine pH (5.0-9.0) Ur Specific [place] (1.005-1.025) Urine Protein (Neg-Trace) mg/dL Urine Glucose (UA) (Negative) mg/dL Urine Ketones (Negative) mg/dL Urine Blood (Negative) Urine Nitrite (Negative) Ur Leukocyte Esterase (Negative) Urine RBC (0-2) /HPF Urine WBC (0-5) /HPF Ur Squamous Epith Cells (0-2) /HPF Urine Bacteria (None Seen) Hyaline Casts (0-2) /LPF Urine Opiates Screen (Not Detect) Ur Buprenorphine Scrn (Not Detect) ng/mL Ur Oxycodone Screen (Not Detect) ng/mL Urine Methadone Screen (Not Detect) ng/mL Urine Fentanyl Screen (Not Detect) Ur Barbiturates Screen (Not Detect) Ur Phencyclidine Scrn (Not Detect) Ur Amphetamines Screen (Not Detect) U Benzodiazepines Scrn (Not Detect) Urine Cocaine Screen (Not Detect) U Marijuana (THC) Screen (Not Detect) COVID-19 (CORNELIO) Positive A (Negative) COVID-19 Clin Com See Note 03/14/24 Range/Units 07:43 WBC (4.8-10.8) X10*3/uL RBC (4.60-5.80) X10*6/uL Hgb (14.0-18.0) g/dl Hct (42.0-52.0) % MCV (80.0-98.0) fL MCH (27.0-33.0) pg MCHC (31.0-36.0) g/dl RDW (11.0-16.0) % Plt Count (160-400) X10*3/uL MPV (9.4-12.4) fL Immature Gran % (Auto) (0.0-0.4) % Neut % (Auto) (45-73) % Lymph % (Auto) (20-40) % Todd % (Auto) (2-11) % Eos % (Auto) (0-4) % Baso % (Auto) (0-2) % Lymph # (Auto) (1.2-4.9) X10*3/uL Todd # (Auto) (0.1-1.2) X10*3/uL Eos # (Auto) (0.0-0.4) X10*3/uL Baso # (Auto) (0.0-0.2) X10*3/uL Abs Immat Gran (auto) (0.00-0.03) X10*3/uL Absolute Neuts (auto) (2.0-8.3) x10*3/uL Absolute Nucleated RBC (0.0-0.012) X10*3/uL Nucleated RBC % (auto) (0.0-0.2) /100WBC Hold Purple Top Hold Blue Top POC Glucose (60-115) mg/dL Urine Color Yellow Urine Appearance Turbid Urine pH 5.0 (5.0-9.0) Ur Specific [place] 1.015 (1.005-1.025) Urine Protein 30 (1+) H (Neg-Trace) mg/dL Urine Glucose (UA) Negative (Negative) mg/dL Urine Ketones Negative (Negative) mg/dL Urine Blood Large (3+) H (Negative) Urine Nitrite Positive H (Negative) Ur Leukocyte Esterase Large (3+) H (Negative) Urine RBC 11-20 H (0-2) /HPF Urine WBC >50 H (0-5) /HPF Ur Squamous Epith Cells 0-2 (0-2) /HPF Urine Bacteria 2+ (None Seen) Hyaline Casts 3-5 (0-2) /LPF Urine Opiates Screen Not Detected (Not Detect) Ur Buprenorphine Scrn Not Detected (Not Detect) ng/mL Ur Oxycodone Screen Not Detected (Not Detect) ng/mL Urine Methadone Screen Not Detected (Not Detect) ng/mL Urine Fentanyl Screen Not Detected (Not Detect) Ur Barbiturates Screen Not Detected (Not Detect) Ur Phencyclidine Scrn Not Detected (Not Detect) Ur Amphetamines Screen Not Detected (Not Detect) U Benzodiazepines Scrn Not Detected (Not Detect) Urine Cocaine Screen Not Detected (Not Detect) U Marijuana (THC) Screen Not Detected (Not Detect) COVID-19 (CORNELIO) (Negative) COVID-19 Clin Com Independent Interpretation I performed an independent interpretation of an: Plain X-Ray and CT Scan Radiology Impression Discussion of test interpretation with radiology: I have reviewed the radiologist's reading. Radiologist Impression: Moderate diffuse ventral prominence of ventricles and sulci. No intracranial hemorrhage, tumors or acute infarcts identified. Mild scattered subcortical and periventricular white matter patchy hypodensities. Bilateral ocular lens replacements. Mild focal right parietal extracranial soft tissue inflammatory changes. Partial opacification of the left lateral aspect of the sphenoid sinus. Mastoid air cells and middle ear cavities are clear. Mild hyperostosis frontalis interna. CT cervical spine: No fractures or acute-appearing subluxations of the cervical spine noted. Moderate intervertebral disc space narrowing posterior endplate osteophytosis C4-C5, C5-C6 and C6-C7. No prevertebral fluid collections or soft tissue inflammatory changes. Normal appearance of the thyroid. Moderate-marked bilateral carotid bulb calcific atherosclerotic plaques. Partial visualization of a dependent layering right pleural effusion (-60 Hounsfield unit, likely representing some degree of artifact resulting in low density). New since baseline is evidence for congestive heart failure with early interstitial pulmonary edema. Heart size remains within the upper limits of normal. Significant peribronchial thickening and small amount of pleural fluid. No focal consolidation grossly. Retrocardiac region is not well demonstrated due to overall underpenetration portable technique. Critical Care Time Critical Care Time Critical Care Time: Yes Total Critical Care Time: 75 Attestation: I have personally provided critical care time. Time includes review of lab data, radiology results, discussion with consultants, and monitoring for potential decompensation. Intervention performed as documented. Discharge Plan Discharge Clinical Impression: CHF (congestive heart failure), COVID-19, Fall, Acute UTI Patient Disposition: Admitted As Inpatient Print Language: Ecuadorean
[2024-03-14 06:24] LABS: Basophils Percent Auto 0.5 % (0-2); Eosinophils Absolute Auto 0.2 X10*3/uL (0.0-0.4); Eosinophils Percent Auto 2.6 % (0-4); Hematocrit 43.4 % (42.0-52.0); Hemoglobin 13.5 g/dl (14.0-18.0); Imm Gran Abs Auto 0.11 X10*3/uL (0.00-0.03); Imm Gran Pct Auto 1.3 % (0.0-0.4); Lymphocytes Absolute Auto 0.8 X10*3/uL (1.2-4.9); Lymphocytes Percent Auto 9.6 % (20-40); MANUAL DIFF FLAG NO; Mean Corpuscular HGB Conc 31.1 g/dl (31.0-36.0); Mean Corpuscular Hemoglobin 31.4 pg (27.0-33.0); Mean Corpuscular Volume 100.9 fL (80.0-98.0); Mean Platelet Volume 11.2 fL (9.4-12.4); Monocytes Absolute Auto 0.6 X10*3/uL (0.1-1.2); NRBC Pct Auto 0.2 /100WBC (0.0-0.2); Neutrophils Absolute Auto 6.5 x10*3/uL (2.0-8.3); Platelet Count 188 X10*3/uL (160-400); Red Cell Distribution Width 15.7 % (11.0-16.0); White Blood Count 8.2 X10*3/uL (4.8-10.8)
[2024-03-14 06:30] LABS: COVID-19 Test Positive (Negative); IDNOW Serial# 58CA691E
[2024-03-14 07:03] LABS: Alanine Aminotransferase 667 U/L (0-40); Albumin Level 3.8 g/dL (3.5-5.0); Alkaline Phosphatase 258 U/L (39-117); Aspartate Amino Transferase 251 U/L (5-37); Bilirubin Total 1.8 mg/dL (0.0-1.0); Blood Urea Nitrogen 91 mg/dL (9-16); Calcium 8.8 mg/dL (8.4-10.2); Carbon Dioxide 25 mmol/L (22-29); Chloride 105 mmol/L (96-108); Creatinine Clr Calc Pharmacy 25.5; Estimated Glomerular Filt Rate 26; Glucose Random 158 mg/dL (60-115); Magnesium 2.4 mg/dL (1.6-2.6); Potassium 4.3 mmol/L (3.3-5.1); Sodium 142 mmol/L (135-145); Total Protein 6.8 g/dL (6.5-8.0)
[2024-03-14 07:27] LABS: Glucose, Whole Blood 141 mg/dL (60-115)
[2024-03-14 07:55] LABS: Appearance Urine Turbid; Color Urine Yellow; Glucose Urine UA Negative (Negative); Leukocyte Esterase Urine Large (3+) (Negative); Nitrite Urine Positive (Negative); Specific Gravity - Urine 1.015 (1.005-1.025); UMIC TRIGGER UACC YES; Urine Blood Large (3+) (Negative); Urine Ketones Negative (Negative); Urine Protein 30 (1+) mg/dL (Neg-Trace)
[2024-03-14 08:00] LABS: Bacteria Urine 2+ (None Seen); Squamous Epithelial Cell Urine 0-2 /HPF (0-2); UACC Culture Trigger YES; WBC Urine >50 /HPF (0-5)
[2024-03-14 08:09] LABS: Amphetamine Screen Urine Not Detected (Not Detect); Barbiturates, Urine Not Detected (Not Detect); Benzodiazepines Screen Urine Not Detected (Not Detect); Buprenorphine Scr Not Detected (Not Detect); Cannabinoid Screen Urine Not Detected (Not Detect); Cocaine Screen Urine Not Detected (Not Detect); Fentanyl, urine Not Detected (Not Detect); Methadone Screen, Urine Not Detected (Not Detect); Opiate Screen Urine Not Detected (Not Detect); Oxycodone Screen Urine Not Detected (Not Detect); Phencyclidine Screen Urine Not Detected (Not Detect)
[2024-03-14 08:38] LABS: Anion Gap 19 (12-20)
[2024-03-14] MEDS: dexAMETHasone sod phosphate 4 MG/ML VIAL 6 MG IVPUSH (08:40)
[2024-03-14] MEDS: Furosemide 20 MG/2 ML VIAL 10 MG IVPUSH ×2 (08:40→16:17)
[2024-03-14] MEDS: cefTRIAXone sodium 1 GM VIAL IVPUSH (08:40)
[2024-03-14 09:04] LABS: Lactic Acid 1.4 mmol/L (0.5-2.0)
[2024-03-14 09:20] LABS: B Type Natriuretic Peptide 4074 pg/mL (<100)
[2024-03-14 11:10] LABS: Troponin-I High Sensitivity 51.3 ng/L (<3.5-35.0)
--- NOTE | 2024-03-14 13:11 | P.HPHOSP_ITS ---
History of Present Illness Date of Service: 03/14/24 Attending physician on admission: Jr Ernandez Chief Complaint: Unwitnessed fall at SNF Pt is an 84-year-old male with a PMH significant for?HFrEF, paroxysmal AFib on Eliquis, CAD, and eod-aioanpz-rsgdabxfz type 2 diabetes who presents to the ED for evaluation after unwitnessed fall at [facility]. HPI is supplement by family who was at bedside. Up until a few weeks ago pt was living by himself, driving, and taking care of his own ADLs. Was admitted to from 03/01-03/12 where he was treated for CHF exacerbation that was complicated by NANCY from cardiac catheterization contrast. Daughter reports creatinine was as high as 3.6, though records from [facility] have not yet been obtained for verification. Patient was just discharged to SNF yesterday. This morning patient was by staff on the awake and alert but with small laceration to the back of his head. Bleeding was stopped and EMS was called. Currently patient complains of increased SOB and nonproductive cough, otherwise no acute medical complaints. Denies headache or changes in vision. No nausea, vomiting, abdominal pain. Denies diarrhea. No fever or chills. Denies chest pain/pressure, or palpitations. No musculoskeletal pain, including neck, shoulders, back, arms, hips, legs. In the ED pt with elevated HR of 92, and episode of desatting to the 70s on RA. Labs were significant for testing positive for COVID, creatinine 2.36, T bili 1.8, AST 251, ALT 667, alk-phos 258, initial troponin 56.0 with repeat 51.3, and BNP 4074. UA positive for UTI. Tox screen negative. CXR showed developing CHF with early interstitial pulmonary edema. CT of head negative for acute intracranial abnormalities though showed mild white matter chronic small-vessel ischemic changes. CT of cervical spine negative for acute abnormalities. CT of abdomen and pelvis negative for biliary ductal dilation, though showed gallstones and possible thickening without acute inflammatory changes. Also showed moderate size bilateral pleural effusions and bibasilar atelectasis. EKG demonstrated atrial fibrillation with nonspecific intraventricular conduction block. Pt was treated with dexamethasone, ceftriaxone, and furosemide 10 mg IV. Pt will be admitted to the hospital for treatment and further evaluation of generalized weakness with unwitnessed fall at SNF in the setting of acute hypoxic respiratory failure in the setting of COVID infection, acute UTI, and CHF exacerbation. Review of Systems 2 Review of Systems: Negative except for that which is stated in the [facility] Medical History 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 Diabetes mellitus, type II Malignant neoplasm of lateral wall of urinary bladder Benign prostatic hyperplasia with lower urinary tract symptoms History of bladder cancer Surgical History History of surgery Social History Housing: House Patient Tobacco Use Status: Never used Tobacco Smoked in Last 30 Days: No Use of substances other than those prescribed or required for medical reasons: No Advance Directives: No Advance Directives Information Provided: Yes service: Yes Current occupational status: retired Meds Allergies Allergy/AdvReac Type Severity Reaction Status Date / Time No Known Allergies Allergy Verified 03/14/24 05:31 [No Known Allergies*] Home Medications ?Medication ?Instructions ?Recorded ?Confirmed ?Last Taken ?Type atorvastatin 80 mg tablet 80 mg PO BEDTIME 08/10/20 03/14/24 12/21/21 History dapagliflozin propanediol 5 mg 5 mg PO DAILY 12/21/21 03/14/24 12/21/21 History tablet (Farxiga) acetaminophen 325 mg tablet 650 mg PO Q8H PRN Fever Or Pain 03/14/24 03/14/24 Unknown History apixaban 2.5 mg tablet (Eliquis) 2.5 mg PO BID 03/14/24 03/14/24 Unknown History aspirin 81 mg chewable tablet 81 mg PO DAILY 03/14/24 03/14/24 Unknown History bisacodyl 10 mg rectal suppository 10 mg AL DAILY PRN Constipation 03/14/24 03/14/24 Unknown History fluticasone propionate 50 2 spray intranasal DAILY 03/14/24 03/14/24 Unknown History mcg/actuation nasal spray,suspension (Flonase Allergy Relief) glipizide 2.5 mg tablet, extended 2.5 mg PO DAILY 03/14/24 03/14/24 Unknown History release 24 hr ipratropium 0.5 mg-albuterol 3 mg 3 ml inhalation QID PRN Shortness 03/14/24 03/14/24 Unknown History (2.5 mg base)/3 mL nebulization Of Breath Or Wheezing soln magnesium hydroxide 400 mg/5 mL 30 ml PO DAILY PRN Constipation 03/14/24 03/14/24 Unknown History oral suspension (Milk of Magnesia) melatonin 3 mg tablet 3 mg PO BEDTIME PRN Insomnia 03/14/24 03/14/24 Unknown History metoprolol tartrate 25 mg tablet 25 mg PO BID 03/14/24 03/14/24 Unknown History midodrine 10 mg tablet 10 mg PO TIDAC 03/14/24 03/14/24 Unknown History midodrine 5 mg tablet 5 mg PO Q8H PRN SBP <100 03/14/24 03/14/24 Unknown History quetiapine 25 mg tablet 12.5 mg PO Q6H PRN Agitation 03/14/24 03/14/24 Unknown History quetiapine 25 mg tablet 25 mg PO BEDTIME 03/14/24 03/14/24 Unknown History sodium phosphates 19 gram-7 118 ml AL DAILY PRN consitpation 03/14/24 03/14/24 Unknown History gram/118 mL enema (Fleet Enema) torsemide 10 mg tablet 10 mg PO DAILY 03/14/24 03/14/24 Unknown History Physical Exam 2 Vital Signs and Narrative: Vital Signs: Last Vital Signs Temp 98.3 F 03/14/24 07:52 Pulse 92 03/14/24 07:52 Resp 17 03/14/24 07:52 BP 101/67 03/14/24 08:40 Pulse Ox 100 03/14/24 07:52 O2 Del Method Oxymask 03/14/24 07:44 O2 Flow Rate 3 03/14/24 07:44 BMI result Body Mass Index 30.9 Constitutional: Alert, in no acute distress. Mental Status: Oriented to person, and time, only partly to place and situation. Eyes: Pupils are equal, round, and reactive to light. Head, Ear, Nose, and Throat: Oropharynx clear, mucous membranes moist. Ears and nose without deformities. Trachea midline. Small laceration to occipital scalp. Respiratory: Clear to auscultation bilaterally. No wheezing, rales, or rhonchi. Pt noted to have intermittent dry cough. Cardiovascular: S1, S2 regular. +murmur Gastrointestinal: Abdomen soft, non-tender, non-distended. Normal bowel sounds. Neurologic: Cranial nerves II-XII are grossly intact bilaterally. No focal neurological deficits. Moves all extremities spontaneously. Skin: Warm, dry. Extremities: 2+ bilateral pitting edema. Psychiatric: Normal mood and affect. Results Labs 03/14/24 06:12 03/14/24 06:12 Labs: Laboratory Results - last 24 hr 03/14/24 03/14/24 03/14/24 05:33 06:12 06:40 MCV 100.9 H MCH 31.4 MCHC 31.1 RDW 15.7 Plt Count 188 D MPV 11.2 Immature Gran % (Auto) 1.3 H Neut % (Auto) 79.0 H Lymph % (Auto) 9.6 L Dickey % (Auto) 7.0 Eos % (Auto) 2.6 Baso % (Auto) 0.5 Lymph # (Auto) 0.8 L Dickey # (Auto) 0.6 Eos # (Auto) 0.2 Baso # (Auto) 0.0 Abs Immat Gran (auto) 0.11 H Absolute Neuts (auto) 6.5 Absolute Nucleated RBC 0.020 H Nucleated RBC % (auto) 0.2 Hold Purple Top SEE NOTE Hold Blue Top SEE NOTE Anion Gap 19 Estim Creat Clear Calc 25.5 Estimated GFR 26 POC Glucose 141 H Random Glucose 158 H Lactic Acid Calcium 8.8 D Magnesium 2.4 Total Bilirubin 1.8 H Direct Bilirubin 1.0 H AST 251 H ALT 667 H Alkaline Phosphatase 258 H Troponin I High Sens 56.0 H B-Natriuretic Peptide 4074 H Total Protein 6.8 Albumin 3.8 Urine Color Urine Appearance Urine pH Ur Specific [place] Urine Protein Urine Glucose (UA) Urine Ketones Urine Blood Urine Nitrite Ur Leukocyte Esterase Urine RBC Urine WBC Ur Squamous Epith Cells Urine Bacteria Hyaline Casts Urine Opiates Screen Ur Buprenorphine Scrn Ur Oxycodone Screen Urine Methadone Screen Urine Fentanyl Screen Ur Barbiturates Screen Ur Phencyclidine Scrn Ur Amphetamines Screen U Benzodiazepines Scrn Urine Cocaine Screen U Marijuana (THC) Screen COVID-19 (CORNELIO) Positive A COVID-19 Clin Com See Note 03/14/24 03/14/24 03/14/24 07:43 08:39 10:41 MCV MCH MCHC RDW Plt Count MPV Immature Gran % (Auto) Neut % (Auto) Lymph % (Auto) Dickey % (Auto) Eos % (Auto) Baso % (Auto) Lymph # (Auto) Dickey # (Auto) Eos # (Auto) Baso # (Auto) Abs Immat Gran (auto) Absolute Neuts (auto) Absolute Nucleated RBC Nucleated RBC % (auto) Hold Purple Top Hold Blue Top Anion Gap Estim Creat Clear Calc Estimated GFR POC Glucose Random Glucose Lactic Acid 1.4 Calcium Magnesium Total Bilirubin Direct Bilirubin AST ALT Alkaline Phosphatase Troponin I High Sens 51.3 H B-Natriuretic Peptide Total Protein Albumin Urine Color Yellow Urine Appearance Turbid Urine pH 5.0 Ur Specific [place] 1.015 Urine Protein 30 (1+) H Urine Glucose (UA) Negative Urine Ketones Negative Urine Blood Large (3+) H Urine Nitrite Positive H Ur Leukocyte Esterase Large (3+) H Urine RBC 11-20 H Urine WBC >50 H Ur Squamous Epith Cells 0-2 Urine Bacteria 2+ Hyaline Casts 3-5 Urine Opiates Screen Not Detected Ur Buprenorphine Scrn Not Detected Ur Oxycodone Screen Not Detected Urine Methadone Screen Not Detected Urine Fentanyl Screen Not Detected Ur Barbiturates Screen Not Detected Ur Phencyclidine Scrn Not Detected Ur Amphetamines Screen Not Detected U Benzodiazepines Scrn Not Detected Urine Cocaine Screen Not Detected U Marijuana (THC) Screen Not Detected COVID-19 (CORNELIO) COVID-19 Clin Com Imaging Radiologist's Impressions: Impressions Chest X-Ray 03/14/24 05:52 IMPRESSION: Developing congestive heart failure with early interstitial pulmonary edema. Electronically signed by: Oswald Carvajal MD 03/14/2024 07:53 AM EST RP Cervical Spine CT 03/14/24 06:15 IMPRESSION: CT HEAD: 1. No acute intracranial abnormalities. 2. Mild white matter chronic small vessel ischemic changes. 3. Mild focal right parietal extracranial soft tissue inflammatory changes. CT CERVICAL SPINE: 1. No acute abnormalities. 2. Multilevel chronic spondylosis. 3. Moderate-marked bilateral carotid bulb calcific atherosclerotic plaques. Electronically signed by: Bran Davis MD 03/14/2024 06:54 AM EST RP Head CT 03/14/24 06:15 IMPRESSION: CT HEAD: 1. No acute intracranial abnormalities. 2. Mild white matter chronic small vessel ischemic changes. 3. Mild focal right parietal extracranial soft tissue inflammatory changes. CT CERVICAL SPINE: 1. No acute abnormalities. 2. Multilevel chronic spondylosis. 3. Moderate-marked bilateral carotid bulb calcific atherosclerotic plaques. Electronically signed by: Bran Davis MD 03/14/2024 06:54 AM EST RP Abdomen/Pelvis CT 03/14/24 09:01 IMPRESSION: 1. No biliary ductal dilatation. 2. Gallstones and possible mild gallbladder wall thickening. No acute inflammatory changes. 3. Moderate size bilateral pleural effusions and bibasilar atelectasis. 4. Additional chronic findings as above. 5. Air within the bladder lumen presumed iatrogenic. Correlate with any recent catheterization. Fleischner guidelines were followed. Electronically signed by: Oswald Carvajal MD 03/14/2024 11:07 AM EST RP Assessment and Plan (1) Acute UTI: Status: Acute (2) COVID-19: Status: Acute (3) Hypoxia: Status: Acute Plan Pt is an 84-year-old male with a PMH significant for?HFrEF, paroxysmal AFib on Eliquis, CAD, and jeq-tztsvam-tstoofwig type 2 diabetes who presents to the ED for evaluation after unwitnessed fall at [facility]. Pt will be admitted to the hospital for treatment and further evaluation of generalized weakness with unwitnessed fall at [facility] in the setting of acute hypoxic respiratory failure in the setting of COVID infection, acute UTI, and CHF exacerbation. Acute hypoxic respiratory failure in the setting of COVID infection Patient with SOB, weakness, nonproductive cough, COVID+, desatting to 70-80s on RA with exertion Will treat with dexamethasone, DuoNebs p.r.n., guaifenesin Titrate supplemental oxygen >92, wean as tolerated Monitor respiratory status Acute UTI No sepsis: HR 92, but no tachypnea, fever, or leukocytosis; lactic acid WNL at 1.4 Will treat with ceftriaxone, started 03/14/2024 Follow urine cultures ?Acute on chronic HFrEF exacerbation Pt discharged yesterday from [facility] after being treated for CHF [facility] 03/01[facility]03[facility]12 Clinically still looks volume overloaded: 2+ bilateral pitting edema, CXR with pulmonary edema, BNP 4074 Will gently diurese with Lasix 20mg IV for now Follow labs Daily weights, low-salt diet Monitor on telemetry ?NANCY on CKD Creatinine elevated at 2.36, baseline unknown Patient apparently had NANCY with creatinine of 3.6 after IV contrast for cardiac catheterization at [facility] Consult [facility] records once received Follow creatinine Transaminitis T bili 1.8, AST 251, ALT 667, alk-phos 258 Unclear etiology: CT of abdomen/pelvis negative for biliary ductal dilation or acute abdomen Pt asymptomatic, abd exam benign Consult [facility] records once received to trend labs Follow LFTS Weakness/unwitnessed fall In the setting of above Treat as above Elevated troponin Initial troponin 56.0 with repeat flat at 51.3 Patient asymptomatic, EKG without significant ischemic changes Likely type 2 in the setting of increased demand in the setting of above Patient being monitored on telemetry Hx of hypotension BP stable and WNL while here Hx of hypotension at [facility] admission, temporarily started on midodrine Hold midodrine due to elevated creatinine Will give albumin Monitor BP closely Paroxysmal AFib Continue Eliquis, metoprolol CAD Continue aspirin Hold statin due to transaminitis Rnk-rvzebqm-ygrnyrgye type 2 diabetes Continue Farxiga, glipizide Will place on sliding scale insulin Diabetic diet Mood disorder Continue quetiapine Full Code Attending:?Dr. Ernandez DVT Prophylaxis: On Eliquis Pt will require a hospitalization of at least two nights for treatment of?generalized weakness with unwitnessed fall at SNF in the setting of acute hypoxic respiratory failure in the setting of COVID infection, acute UTI, and CHF exacerbation. Patient will require hospital level care for administration of IV antibiotics, IV steroids, supplemental oxygen, IV diuretics, and close monitoring of labs and cardiac function. Quality Stroke Does the patient have a stroke diagnosis?: No VTE Prior VTE?: No VTE Risk Level:: Medical - moderate - high VTE Device Contraindication: Treatment Not Indicated VTE Drug Contraindication: N/A - Med Ordered
--- NOTE | 2024-03-14 13:14 | PHA.MEDREC ---
Addendum entered by Goyo Banks RP 03/14/24 14:21: MED REC CHECKED BY [facility] Original Note: Pharmacy Consult ? Medication Reconciliation Pharmacy has completed the medication reconciliation. Used list from [facility].
--- NOTE | 2024-03-14 15:47 | PC.NURSE ---
Pt has been resting comfortably most of the late morning/afternoon. Earlier today, Pt pulled out his IV access. Two attempts made to gain new access without success. Will re-attempt. Pt supplied with male purwick apparatus for easy urination--pt removed set up and has been using a urinal.
[2024-03-14] MEDS: 0.9 % Sodium Chloride Flush 3 ML SYRINGE IVFLUSH (16:18)
[2024-03-14] MEDS: Albumin Human 25 % 100 ML IV ×2 (16:22→17:23)
--- NOTE | 2024-03-14 16:28 | PC.NURSE ---
New IV access acquired--22g to L forearm. IV access wrapped with gauze to prevent Pt removing. Pt medicated per MAY. VSS Pt sating well at 100% on RA. Supplemental O2 available but Pt removes mask from face.
[2024-03-14 17:51] LABS: Glucose, Whole Blood 191 mg/dL (60-115)
[2024-03-14] MEDS: Insulin Lispro 100 UNIT/ML 3 ML VIAL SUBCUT ×2 (18:23→21:05)
--- NOTE | 2024-03-14 19:27 | MHC.EDTECH ---
this tech assumed care @1900, at this time the pt is resting in their stretcher and no needs made aware at this time
--- NOTE | 2024-03-14 19:36 | PC.NURSE ---
pt used the call griffin for bedpan. pt urinated no bm.
[2024-03-14] MEDS: QUEtiapine Fumarate 25 MG TABLET PO (20:51)
[2024-03-14] MEDS: Metoprolol Tartrate 25 MG TABLET PO (20:51)
[2024-03-14] MEDS: Apixaban 2.5 MG TABLET PO (20:51)
[2024-03-14 21:00] LABS: Glucose, Whole Blood 247 mg/dL (60-115)
[2024-03-15] VITALS (9 sets, daily range): BP systolic 89–110; BP diastolic 56–77; PULSE 75–106; RESP 18–20; TEMP 36.3–37.5; O2SAT 90–95
[2024-03-15] MEDS: 0.9 % Sodium Chloride Flush 3 ML SYRINGE IVFLUSH ×3 (00:31→16:54)
[2024-03-15] MEDS: Melatonin 3 MG TABLET 6 MG PO (00:31)
[2024-03-15 06:41] LABS: Alanine Aminotransferase 469 U/L (0-40); Alkaline Phosphatase 226 U/L (39-117); Anion Gap 21 (12-20); Aspartate Amino Transferase 158 U/L (5-37); Bilirubin Total 1.4 mg/dL (0.0-1.0); Blood Urea Nitrogen 90 mg/dL (9-16); Carbon Dioxide 23 mmol/L (22-29); Chloride 104 mmol/L (96-108); Creatinine Clr Calc Pharmacy 25.9; Estimated Glomerular Filt Rate 27; Glucose Random 185 mg/dL (60-115); Magnesium 2.4 mg/dL (1.6-2.6); Sodium 143 mmol/L (135-145); Total Protein 6.7 g/dL (6.5-8.0)
[2024-03-15 07:27] LABS: Glucose, Whole Blood 160 mg/dL (60-115)
[2024-03-15] MEDS: Aspirin 81 MG TAB.CHEW PO (08:12)
[2024-03-15] MEDS: Furosemide 20 MG/2 ML VIAL IVPUSH (08:14)
[2024-03-15] MEDS: Metoprolol Tartrate 25 MG TABLET PO (08:14)
[2024-03-15] MEDS: Apixaban 2.5 MG TABLET PO ×2 (08:14→21:00)
[2024-03-15] MEDS: cefTRIAXone sodium 1 GM VIAL IVPUSH (08:14)
[2024-03-15] MEDS: Empagliflozin 10 MG TABLET PO (08:14)
[2024-03-15] MEDS: Insulin Lispro 100 UNIT/ML 3 ML VIAL SUBCUT ×4 (08:18→21:44)
[2024-03-15] MEDS: dexAMETHasone sod phosphate 4 MG/ML VIAL 6 MG IVPUSH (08:18)
[2024-03-15] MEDS: Fluticasone Propionate Nasal 16 GM SPRAY 2 SPRAY NOSTRIL-B (09:21)
--- NOTE | 2024-03-15 10:22 | HO.WOUND ---
Wound Consult: Initial 84yr old? [place] [facility] [place] - See progress notes and H&P for detailed history.? Wound consult placed for Head Laceration and Bilateral Lower Legs.? Patient agreeable to assessment and photo documentation.? Patient is not able to communicate current history of wounds other than his head he denies pain and tenderness. Scalp Etiology: Abrasion s/p fall prior to admission Measurements: 0.4cm x 0.4cm x 0.1cm Wound Bed: dried stable scab Drainage / Odor: None noted Edges: ? well defined Skylar wound: ?bruising noted - No Induration, Fluctuance or Warmth noted Pain: denies Goals of Treatment: ? No topical interventions needed at this time Left Leg and toes Right Leg Right Heel Left Heel Bilateral lower legs assessed - noted for dried scabs / rash. suspect due to scratching. no drainage noted - patient denies itching, no topical interventions needed at this time. Of note both heels were assessed for red light purple pigmentation remains intact and blanchable - the toes are cold and light purple these are consistent with Covid skin manifestations. Keep lower limbs warm and heels elevated off of bed surface. Continue to follow provider orders and nutrition recommendations. Recommendations: 1. Turn and Reposition every 2 hours and as needed for patient comfort.? Use pillows or wedges to support off loading positions. 2. Off Load all bony prominences with use of pillows and heel boots if needed.? Apply Preventative foams where needed. ? 3. Monitor for incontinence and moisture control, use barrier creams when needed for prevention and treatment. 4. Provide adequate and supplemental nutrition.? 5. Order low air loss mattress. 6. When applicable maintain blood glucose levels per Providers order. 7. Bilateral Lower Legs: Elevate lower legs off of bed surface may apply preventative foams, peel back and assess Q shift and Change every 5 days and PRN. 8. Scalp: Protect from trauma - no topical interventions needed at this time. Re-consult wound care Nurse for wound deterioration or wound changes.
--- NOTE | 2024-03-15 11:17 | MHC.CM.PN ---
Addendum entered by Rosa Maria Paul 03/15/24 15:35: HCP received and added to chart. Original Note: IMM 03/15/24, Pt came from STR at [facility], was only there part of a day, before coming to hosp. Pt and family do not want him to go back there, requested referrals to [facility], and [facility] HCP is son Kwaku, copy requested. Pt. was living alone prior to last hosp. stay. He uses a cane. He is a and uses some [facility], his son is looking into [facility] services that can assist following hosp stay. PCP is Gabriele Carroll, myriam. DCP: [facility]. CM to follow and assist with DC plan.
[2024-03-15 12:10] LABS: Glucose, Whole Blood 205 mg/dL (60-115)
--- NOTE | 2024-03-15 13:08 | HO.PM.IMPN ---
Subjective Subjective Date of Service: 03/15/24 Interval History: seen and evaluated this morning not eating much had sundowning overnight removing tele and becoming restless no ohter events Review of Systems Review of Systems: Yes all other systems are reviewed and are negative Physical Exam Vital Signs: Vital Signs: Last Vital Signs Temp 98.0 F 03/15/24 12:00 Pulse 90 03/15/24 12:00 Resp 20 03/15/24 12:00 BP 105/64 03/15/24 12:00 Pulse Ox 94 03/15/24 12:00 O2 Del Method Room Air 03/15/24 12:00 O2 Flow Rate 3 03/14/24 17:16 BMI result Body Mass Index 30.9 Const: Other: Constitutional : interactive, not in distress Cardiovascular : no JVP, +1 bilateral lower extremity edema Respiratory : bilateral chest movement, not in resp distress Gastrointestinal: soft, lax, Non tender Skin : Warm, Dry Neurological : Alert & oriented to self, No focal deficit Objective Data Active Medications Acetaminophen (Acetaminophen 325 Mg Tablet) 650 mg PO Q6H PRN PRN Reason: Pain, Mild (Pain Scale 1-3), fever or headache Albuterol/Ipratropium (Albuterol/Iprat 2.5/0.5mg 3 Ml Ampul.Neb) 3 ml INHALE RQ4H WHILE AWAKE PRN PRN Reason: Shortness of Breath/Wheezing Apixaban (Apixaban 2.5 Mg Tablet) 2.5 mg PO BID [facility] Last Admin: 03/15/24 08:14 Dose: 2.5 mg Documented By: JOSE Aspirin (Aspirin 81 Mg Tab.Chew) 81 mg PO DAILY [facility] Last Admin: 03/15/24 08:12 Dose: 81 mg Documented By: JOSE Bisacodyl (Bisacodyl 10 Mg Supp.Rect) 10 mg OR DAILY PRN PRN Reason: Constipation Calcium Carbonate (Calcium Carbonate 750 Mg Tab.Chew) 750 mg PO Q4H PRN PRN Reason: Heartburn Ceftriaxone Sodium (Ceftriaxone Sodium 1 Gm Vial) 1 gm IVPUSH Q24H [facility] Last Admin: 03/15/24 08:14 Dose: 1 gm Documented By: JOSE Dexamethasone Sodium Phosphate (Dexamethasone Sod Phosphate 4 Mg/Ml Vial) 6 mg IVPUSH DAILY [facility] Last Admin: 03/15/24 08:24 Dose: Not Given Documented By: JOSE Non-Admin Reason: Previously Administered Empagliflozin (Empagliflozin 10 Mg Tablet) 10 mg PO DAILY [facility] Last Admin: 03/15/24 08:14 Dose: 10 mg Documented By: JOSE Fluticasone Propionate (Fluticasone Propionate Nasal 16 Gm [place]) 2 spray NOSTRIL-B DAILY [facility] Last Admin: 03/15/24 09:21 Dose: 2 spray Documented By: JOSE Furosemide (Furosemide 20 Mg/2 Ml Vial) 20 mg IVPUSH DAILY [facility]; Protocol Last Admin: 03/15/24 08:14 Dose: 20 mg Documented By: JOSE Glucose (Glucose Gel 15 Gm Gel..Gram.) 15 gm PO Q15M PRN; Protocol PRN Reason: per Hypoglycemia Standing Ord. Guaifenesin/Dextromethorphan (Guaifenesin Dm 200/20/10 Ml 10 Ml Syrup) 10 ml PO Q4H PRN PRN Reason: Cough Dextrose (D10) 250 mls @ 750 mls/hr IV Q15M PRN; Protocol PRN Reason: per Hypoglycemia Standing Ord. Insulin Human Lispro (Insulin Lispro 100 Unit/Ml 3 Ml Vial) 0 unit SUBCUT QIDACHS [facility]; Protocol Last Admin: 03/15/24 12:20 Dose: 4 unit Documented By: JOSE Magnesium Hydroxide (Milk Of Magnesia 30 Ml Oral.Susp) 30 ml PO DAILY PRN PRN Reason: Constipation Magnesium Hydroxide (Milk Of Magnesia 30 Ml Oral.Susp) 30 ml PO DAILY PRN PRN Reason: Constipation Melatonin (Melatonin 3 Mg Tablet) 6 mg PO BEDTIME PRN PRN Reason: Insomnia Last Admin: 03/15/24 00:31 Dose: 6 mg Documented By: NAHOMI Metoprolol Tartrate (Metoprolol Tartrate 25 Mg Tablet) 25 mg PO BID [facility]; Protocol Last Admin: 03/15/24 08:14 Dose: 25 mg Documented By: JOSE Ondansetron HCl (Ondansetron Hcl 4 Mg/2 Ml Vial) 4 mg IVPUSH Q8H PRN PRN Reason: Nausea and Vomiting Quetiapine Fumarate (Quetiapine Fumarate 25 Mg Tablet) 12.5 mg PO Q6H PRN PRN Reason: Agitation Quetiapine Fumarate (Quetiapine Fumarate 25 Mg Tablet) 25 mg PO BEDTIME [facility] Last Admin: 03/14/24 20:51 Dose: 25 mg Documented By: MCTA Sodium Biphosphate/Sodium Phosphate (Sodium Phosphate,Blount-Dibasic 133 Ml Enema) 118 ml OR DAILY PRN PRN Reason: consitpation Sodium Chloride (0.9 % Sodium Chloride Flush 3 Ml Syringe) 3 ml IVFLUSH QSHIFT [facility] Last Admin: 03/15/24 08:17 Dose: 3 ml Documented By: PHANLYM Labs 03/14/24 06:12 03/15/24 06:04 Labs: Laboratory Results - last 24 hr 03/14/24 03/14/24 03/15/24 17:47 20:47 06:04 Anion Gap 21 H Estim Creat Clear Calc 25.9 Estimated GFR 27 POC Glucose 191 H 247 H Random Glucose 185 H Calcium 9.0 Magnesium 2.4 Total Bilirubin 1.4 H AST 158 H ALT 469 H Alkaline Phosphatase 226 H Total Protein 6.7 Albumin 4.0 03/15/24 03/15/24 07:18 11:56 Anion Gap Estim Creat Clear Calc Estimated GFR POC Glucose 160 H 205 H Random Glucose Calcium Magnesium Total Bilirubin AST ALT Alkaline Phosphatase Total Protein Albumin Microbiology Microbiology Results: Microbiology 03/14/24 Unknown Urine Culture - Preliminary Urine Catheterized - Rizzo Catheter Staphylococcus aureus 03/14/24 08:39 Blood Culture - Preliminary Blood - Venous No growth after 24 hours. 03/14/24 08:39 Blood Culture - Preliminary Blood - Venous No growth after 24 hours. Assessment and Plan (1) Hypoxia: Status: Acute (2) Acute UTI: Status: Acute (3) Fall: Status: Acute (4) COVID-19: Status: Acute Plan Pt is an 84-year-old male with a PMH significant for?HFrEF, paroxysmal AFib on Eliquis, CAD, and [id number] type 2 diabetes who presents to the ED for evaluation after unwitnessed fall at [facility]. Pt will be admitted to the hospital for treatment and further evaluation of generalized weakness with unwitnessed fall at [facility] in the setting of acute hypoxic respiratory failure in the setting of COVID infection, acute UTI, and CHF exacerbation. Acute hypoxic respiratory failure in the setting of COVID infection desat to 80s on RA with exertion continue dexamethasone, DuoNebs p.r.n., guaifenesin wean as tolerated Monitor respiratory status Acute UTI ceftriaxone, started 03/14/2024 Follow urine cultures Acute on chronic HFrEF exacerbation Pt discharged from [facility] after being treated for CHF frm 03/01-03/12 CXR with pulmonary edema, BNP 4074 diurese with Lasix 20mg IV Follow labs Daily weights, low-salt diet Monitor on telemetry CKD3, It seems he had NANCY recenlty and r. apparently had NANCY with creatinine of 3.6 after IV contrast for cardiac catheterization at [facility] Seems to be improving from readings at [facility] recently (still waiting records from [facility]) Follow creatinine Transaminitis CT of abdomen/pelvis negative for biliary ductal dilation or acute abdomen trending down, likely related to Covid Follow LFTS Weakness/unwitnessed fall In the setting of above, Treat as above Elevated troponin Initial troponin 56.0 with repeat flat at 51.3 Patient asymptomatic, EKG without significant ischemic changes Likely type 2 in the setting of increased demand in the setting of above Patient being monitored on telemetry Hx of hypotension BP stable and WNL while here Hold midodrine and monitor for now albumin if needed with diuresis Monitor BP closely Paroxysmal AFib Continue Eliquis, metoprolol CAD Continue aspirin Hold statin due to transaminitis [id number] type 2 diabetes Continue Farxiga, glipizide Will place on sliding scale insulin Diabetic diet Mood disorder Continue quetiapine Full Code DVT Prophylaxis: On Eliquis Pt will require a hospitalization overnight for treatment of?generalized weakness with unwitnessed fall at [facility] in the setting of acute hypoxic respiratory failure in the setting of COVID infection, acute UTI, and CHF exacerbation. Patient will require hospital level care for administration of IV antibiotics, IV steroids, IV diuretics, and close monitoring of labs and cardiac function. Quality Stroke Does the patient have a stroke diagnosis?: No VTE Prior VTE?: No VTE Risk Level:: Medical - moderate - high VTE Device Contraindication: Treatment Not Indicated VTE Drug Contraindication: N/A - Med Ordered
[2024-03-15 16:32] LABS: Glucose, Whole Blood 297 mg/dL (60-115)
[2024-03-15] MEDS: QUEtiapine Fumarate 25 MG TABLET 12.5 MG PO (18:01)
[2024-03-15] MEDS: QUEtiapine Fumarate 25 MG TABLET PO (21:01)
[2024-03-15 21:06] LABS: Glucose, Whole Blood 273 mg/dL (60-115)
[2024-03-16] VITALS: BP 115/55; PULSE 85; RESP 19; TEMP 36.4; O2SAT 93
[2024-03-16 04:00] VITALS: BP 96/68; PULSE 85; RESP 14; TEMP 36.8; O2SAT 100
[2024-03-16 06:19] LABS: MANUAL DIFF FLAG NO
[2024-03-16 06:40] LABS: Anion Gap 20 (12-20); Blood Urea Nitrogen 100 mg/dL (9-16); Calcium 9.2 mg/dL (8.4-10.2); Carbon Dioxide 21 mmol/L (22-29); Chloride 105 mmol/L (96-108); Creatinine Clr Calc Pharmacy 24.6; Estimated Glomerular Filt Rate 25; Glucose Random 157 mg/dL (60-115); Potassium 4.9 mmol/L (3.3-5.1); Sodium 141 mmol/L (135-145)
--- NOTE | 2024-03-16 07:00 | CA_ITS ---
Transthoracic Echocardiogram Patient (Last, First, Middle): Song Guajardo, Gender: Male Date of : 1940 Age: 84 Procedure Date: 03/16/2024 Procedure Type: Transthoracic [place] [facility] [place]: 175.26 cm Weight: 94.35 kg BSA: 2.10 m2 Heart Rate: bpm BP: 111 / 71 mmHg Fire Alarm Dispatcher: JASS Referring MD: Mor Collazo MD Symptoms: chf Study Quality: Fair, contrast Conclusions: - The left ventricular systolic function is severely decreased. The visually estimated ejection fraction is between 10-15%. - Evidence suggests grade III (severe) diastolic dysfunction. - There is severely decreased right ventricular systolic function. - There is severe aortic valve stenosis. Findings Procedure Information Contrast agent, definity, is being given per protocol without apparent complications. Left Ventricle Normal left ventricular cavity size. There is mildly increased left ventricular wall thickness. The left ventricular systolic function is severely decreased. The visually estimated ejection fraction is between 10 15%. Evidence suggests grade III (severe) diastolic dysfunction. Basal part of lateral/infero-lateral wall appears to have some contractility; minimal to absent contractility elsewhere. Right Ventricle Mildly increased right ventricular cavity size. There is severely decreased right ventricular systolic function. Atria The left atrium is moderately dilated. The right atrium is mildly dilated. Aortic Valve There is severe calcification of the aortic valve. There is severe aortic valve stenosis. The peak aortic velocity is 3.47 m/s with a calculated peak gradient of 48 mmHg. The mean gradient is 26 mmHg. The aortic valve area is 0.49 cm2. There is no aortic valve regurgitation. Dimensionless index 0.12. Stroke volume index 19ml/m2. Mitral Valve There is mild mitral annular calcification. There is mild mitral valve regurgitation. There is no mitral valve stenosis. Pulmonic Valve The pulmonic valve is likely normal. Tricuspid Valve There is mild tricuspid valve regurgitation. Mild pulmonary hypertension is present. Great Vessels The asc aorta is normal in size. Venous The inferior vena cava is dilated and collapses less than 50% with inspiration. Pericardium/Pleural There is no evidence of pericardial effusion. Prior Study Comparison No prior study available for comparison. Measurements 2D Linear Measurements IVSd: 1.23 0.6-0.9/0.6-1.0 cm LVIDd: 5.39 3.9-5.3/4.2-5.9 cm LVIDd Index: 2.57 2.4-3.2/2.2-3.1 cm/m2 LVIDs: 4.83 2.0-3.6 cm LVPWd: 1.13 0.7-1.1 cm LA Diam: 5.10 2.7-3.8/3.0-4.0 cm LAIDs Index: 2.43 1.5-2.3 cm/m2 LV Mass: 321.25 67-162/88-224 g LV Mass Index: 152.98 43-95/49-115 g/m2 LVOT Diam: 2.50 3.0+(-)1.3 cm 2D Systolic Function EF 4C: 4.97 >55% EF 2C: 33.30 >55% EF BiP: 20.50 >55% Mitral Valve MV Pk E: 1.09 MV PK A: 0.48 MV Decel Time: 113.00 E/A: 2.30 E'Lateral: 6.72 E'Medial: 3.37 E/E' Med: 32.30 E/E' Lat: 16.20 PHT: 33.00 MVA PHT: 6.67 Decel Mora: 9.82 Aortic Valve AoV Pk Marlo: 3.47 AoV Mn Marlo: 2.33 AoV VTI: 0.82 AoV Pk Grad: 48.00 Aov Mn Grad: 26.00 SCOOTER Cont.VTI: 0.49 LVOT LVOT Pk Marlo: 0.43 LVOT Mn Marlo: 0.27 LVOT VTI: 0.08 LVOT Pk Grad: 1.00 LVOT Mn Grad: 0.00 LVOT Diam: 2.50 LVOT Area: 4.91 Diastolic Function MV Pk E: 1.09 MV Pk A: 0.48 E/A: 2.30 E'Medial: 3.37 E/E' Med: 32.30 E' Laterial: 6.72 E/E' Lat: 16.20 Right Ventricle TAPSE (mm): 8.11 TVS' Marlo: 5.29 Tricuspid Valve TR Pk Marlo: 2.92 TR Pk Grad: 34.00 RA Press: 15.00 RVSP: 49.00 Great Vessels Aorta Ao Asc: 3.40 2.1-3.4 cm Updated in Other Vendor System with Status of Final Michi Gautam MD electronically signed on 03/16/2024 12:37:27 PM with status of Final
[2024-03-16 07:05] LABS: Alanine Aminotransferase 373 U/L (0-40); Albumin Level 3.8 g/dL (3.5-5.0); Alkaline Phosphatase 247 U/L (39-117); Anion Gap 20 (12-20); Aspartate Amino Transferase 101 U/L (5-37); Bilirubin Total 1.2 mg/dL (0.0-1.0); Blood Urea Nitrogen 94 mg/dL (9-16); C Reactive Protein 1.64 mg/dL (< or = 0.50); Calcium 8.8 mg/dL (8.4-10.2); Carbon Dioxide 22 mmol/L (22-29); Chloride 105 mmol/L (96-108); Creatinine Clr Calc Pharmacy 26.1; Estimated Glomerular Filt Rate 27; Glucose Random 154 mg/dL (60-115); Sodium 142 mmol/L (135-145); Total Protein 6.7 g/dL (6.5-8.0)
[2024-03-16 07:06] LABS: Basophils Percent Auto 0.1 % (0-2); Hematocrit 42.3 % (42.0-52.0); Hemoglobin 13.3 g/dl (14.0-18.0); Imm Gran Abs Auto 0.05 X10*3/uL (0.00-0.03); Imm Gran Pct Auto 0.6 % (0.0-0.4); Lymphocytes Absolute Auto 0.4 X10*3/uL (1.2-4.9); Lymphocytes Percent Auto 4.4 % (20-40); Mean Corpuscular HGB Conc 31.4 g/dl (31.0-36.0); Mean Corpuscular Hemoglobin 31.8 pg (27.0-33.0); Mean Corpuscular Volume 101.2 fL (80.0-98.0); Mean Platelet Volume 11.7 fL (9.4-12.4); Monocytes Absolute Auto 0.7 X10*3/uL (0.1-1.2); Monocytes Percent Auto 8.9 % (2-11); NRBC Pct Auto 0.4 /100WBC (0.0-0.2); Platelet Count 149 X10*3/uL (160-400); Red Blood Count 4.18 X10*6/uL (4.60-5.80); Red Cell Distribution Width 15.9 % (11.0-16.0); White Blood Count 8.2 X10*3/uL (4.8-10.8)
[2024-03-16 07:15] VITALS: BP 111/71; PULSE 96; RESP 22; TEMP 36.3; O2SAT 94
[2024-03-16 07:23] LABS: Lactate Dehydrogenase 321 U/L (118-273)
[2024-03-16 07:30] LABS: Glucose, Whole Blood 161 mg/dL (60-115)
[2024-03-16] MEDS: Insulin Lispro 100 UNIT/ML 3 ML VIAL SUBCUT ×4 (07:56→21:12)
[2024-03-16] MEDS: Empagliflozin 10 MG TABLET PO (07:56)
[2024-03-16] MEDS: Metoprolol Tartrate 25 MG TABLET PO ×2 (07:56→21:12)
[2024-03-16] MEDS: Aspirin 81 MG TAB.CHEW PO (07:56)
[2024-03-16] MEDS: Apixaban 2.5 MG TABLET PO ×2 (07:56→21:12)
[2024-03-16] MEDS: Fluticasone Propionate Nasal 16 GM SPRAY 2 SPRAY NOSTRIL-B (07:57)
[2024-03-16] MEDS: Furosemide 20 MG/2 ML VIAL IVPUSH (07:58)
[2024-03-16] MEDS: cefTRIAXone sodium 1 GM VIAL IVPUSH (07:58)
[2024-03-16] MEDS: dexAMETHasone sod phosphate 4 MG/ML VIAL 6 MG IVPUSH (07:58)
[2024-03-16] MEDS: 0.9 % Sodium Chloride Flush 3 ML SYRINGE IVFLUSH ×3 (07:59→21:12)
[2024-03-16] MEDS: ceFAZolin Sodium 1 GM VIAL IVPUSH ×2 (09:38→21:12)
--- NOTE | 2024-03-16 11:11 | P.PNIM_ITS ---
Subjective Subjective Date of Service: 03/16/24 Interval History: no complaints Physical Exam 2 Vital Signs: Vital Signs: Last Vital Signs Temp 97.4 F 03/16/24 07:15 Pulse 96 03/16/24 07:15 Resp 22 H 03/16/24 07:15 BP 111/71 03/16/24 07:15 Pulse Ox 94 03/16/24 07:15 O2 Del Method Room Air 03/16/24 07:15 O2 Flow Rate 3 03/14/24 17:16 BMI result Body Mass Index 30.9 General: AO X 1, no acute distress Resp: CTA bilateral, accessory muscles used CVS: S1,S2,RRR, 2+ edema GI: soft, non tender, non distended Neuro: motor grossly intact, alert Objective Data Active Medications Acetaminophen (Acetaminophen 325 Mg Tablet) 650 mg PO Q6H PRN PRN Reason: Pain, Mild (Pain Scale 1-3), fever or headache Albuterol/Ipratropium (Albuterol/Iprat 2.5/0.5mg 3 Ml Ampul.Neb) 3 ml INHALE RQ4H WHILE AWAKE PRN PRN Reason: Shortness of Breath/Wheezing Apixaban (Apixaban 2.5 Mg Tablet) 2.5 mg PO BID [facility] Last Admin: 03/16/24 07:56 Dose: 2.5 mg Documented By: JOSE Aspirin (Aspirin 81 Mg Tab.Chew) 81 mg PO DAILY [facility] Last Admin: 03/16/24 07:56 Dose: 81 mg Documented By: JOSE Bisacodyl (Bisacodyl 10 Mg Supp.Rect) 10 mg [place] DAILY PRN PRN Reason: Constipation Calcium Carbonate (Calcium Carbonate 750 Mg Tab.Chew) 750 mg PO Q4H PRN PRN Reason: Heartburn Cefazolin Sodium (Cefazolin Sodium 1 Gm Vial) 1 gm IVPUSH Q12H [facility] Last Admin: 03/16/24 09:38 Dose: 1 gm Documented By: JOSE Fluticasone Propionate (Fluticasone Propionate Nasal 16 Gm [place]) 2 spray NOSTRIL-B DAILY [facility] Last Admin: 03/16/24 07:57 Dose: 2 spray Documented By: JOSE Furosemide (Furosemide 20 Mg/2 Ml Vial) 20 mg IVPUSH DAILY [facility]; Protocol Last Admin: 03/16/24 07:58 Dose: 20 mg Documented By: JOSE Glucose (Glucose Gel 15 Gm Gel..Gram.) 15 gm PO Q15M PRN; Protocol PRN Reason: per Hypoglycemia Standing Ord. Guaifenesin/Dextromethorphan (Guaifenesin Dm 200/20/10 Ml 10 Ml Syrup) 10 ml PO Q4H PRN PRN Reason: Cough Dextrose (D10) 250 mls @ 750 mls/hr IV Q15M PRN; Protocol PRN Reason: per Hypoglycemia Standing Ord. Insulin Human Lispro (Insulin Lispro 100 Unit/Ml 3 Ml Vial) 0 unit SUBCUT QIDACHS [facility]; Protocol Last Admin: 03/16/24 07:56 Dose: 2 unit Documented By: JOSE Magnesium Hydroxide (Milk Of Magnesia 30 Ml Oral.Susp) 30 ml PO DAILY PRN PRN Reason: Constipation Melatonin (Melatonin 3 Mg Tablet) 6 mg PO BEDTIME PRN PRN Reason: Insomnia Last Admin: 03/15/24 00:31 Dose: 6 mg Documented By: NAHOMI Metoprolol Tartrate (Metoprolol Tartrate 25 Mg Tablet) 25 mg PO BID [facility]; Protocol Last Admin: 03/16/24 07:56 Dose: 25 mg Documented By: JOSE Ondansetron HCl (Ondansetron Hcl 4 Mg/2 Ml Vial) 4 mg IVPUSH Q8H PRN PRN Reason: Nausea and Vomiting Quetiapine Fumarate (Quetiapine Fumarate 25 Mg Tablet) 12.5 mg PO Q6H PRN PRN Reason: Agitation Last Admin: 03/15/24 18:01 Dose: 12.5 mg Documented By: JOSE Quetiapine Fumarate (Quetiapine Fumarate 25 Mg Tablet) 25 mg PO BEDTIME [facility] Last Admin: 03/15/24 21:01 Dose: 25 mg Documented By: NAHOMI Sodium Biphosphate/Sodium Phosphate (Sodium Phosphate,[place]-Dibasic 133 Ml Enema) 118 ml [place] DAILY PRN PRN Reason: consitpation Sodium Chloride (0.9 % Sodium Chloride Flush 3 Ml Syringe) [facility] Last Admin: 03/16/24 07:59 Dose: 3 ml Documented By: JOSE Labs 03/16/24 06:01 03/16/24 06:01 Labs: Laboratory Results - last 24 hr 03/15/24 03/15/24 03/15/24 11:56 16:27 20:34 MCV MCH MCHC RDW Plt Count MPV Immature Gran % (Auto) Neut % (Auto) Lymph % (Auto) [place] % (Auto) Eos % (Auto) Baso % (Auto) Lymph # (Auto) [place] # (Auto) Eos # (Auto) Baso # (Auto) Abs Immat Gran (auto) Absolute Neuts (auto) Absolute Nucleated RBC Nucleated RBC % (auto) Anion Gap Estim Creat Clear Calc Estimated GFR POC Glucose 205 H 297 H 273 H Random Glucose Calcium Total Bilirubin AST ALT Alkaline Phosphatase Lactate Dehydrogenase C-Reactive Protein Total Protein Albumin 03/16/24 03/16/24 03/16/24 06:01 06:01 06:01 MCV 101.2 H MCH 31.8 MCHC 31.4 RDW 15.9 Plt Count 149 L MPV 11.7 Immature Gran % (Auto) 0.6 H Neut % (Auto) 86.0 H Lymph % (Auto) 4.4 L [place] % (Auto) 8.9 Eos % (Auto) 0.0 Baso % (Auto) 0.1 Lymph # (Auto) 0.4 L [place] # (Auto) 0.7 Eos # (Auto) 0.0 Baso # (Auto) 0.0 Abs Immat Gran (auto) 0.05 H Absolute Neuts (auto) 7.0 Absolute Nucleated RBC 0.030 H Nucleated RBC % (auto) 0.4 H Anion Gap 20 20 Estim Creat Clear Calc 26.1 24.6 Estimated GFR 27 POC Glucose Random Glucose Calcium Total Bilirubin AST ALT Alkaline Phosphatase Lactate Dehydrogenase C-Reactive Protein Total Protein Albumin 03/16/24 03/16/24 03/16/24 06:01 06:01 06:01 MCV MCH MCHC RDW Plt Count MPV Immature Gran % (Auto) Neut % (Auto) Lymph % (Auto) [place] % (Auto) Eos % (Auto) Baso % (Auto) Lymph # (Auto) [place] # (Auto) Eos # (Auto) Baso # (Auto) Abs Immat Gran (auto) Absolute Neuts (auto) Absolute Nucleated RBC Nucleated RBC % (auto) Anion Gap Estim Creat Clear Calc Estimated GFR 25 POC Glucose Random Glucose 154 H 157 H Calcium 8.8 9.2 Total Bilirubin 1.2 H AST 101 H ALT 373 H Alkaline Phosphatase 247 H Lactate Dehydrogenase 321 H C-Reactive Protein 1.64 H Total Protein 6.7 Albumin 3.8 03/16/24 07:16 MCV MCH MCHC RDW Plt Count MPV Immature Gran % (Auto) Neut % (Auto) Lymph % (Auto) [place] % (Auto) Eos % (Auto) Baso % (Auto) Lymph # (Auto) [place] # (Auto) Eos # (Auto) Baso # (Auto) Abs Immat Gran (auto) Absolute Neuts (auto) Absolute Nucleated RBC Nucleated RBC % (auto) Anion Gap Estim Creat Clear Calc Estimated GFR POC Glucose 161 H Random Glucose Calcium Total Bilirubin AST ALT Alkaline Phosphatase Lactate Dehydrogenase C-Reactive Protein Total Protein Albumin Microbiology Microbiology Results: Microbiology 03/14/24 08:39 Blood Culture - Preliminary Blood - Venous No growth after 48 hours. 03/14/24 08:39 Blood Culture - Preliminary Blood - Venous No growth after 48 hours. 03/14/24 Unknown Urine Culture - Final Urine Catheterized - Rizzo Catheter Staphylococcus aureus Assessment and Plan (1) Hypoxia: Status: Acute (2) Acute UTI: Status: Acute (3) Fall: Status: Acute (4) COVID-19: Status: Acute Plan 84M PMH unspecified dementia,?HFrEF, paroxysmal AFib on Eliquis, CAD, and pen-yfhhqcz-wulzkahec type 2 diabetes who presented to the ED for evaluation after unwitnessed fall at [facility]. found to be positive for COVID, acute UTI, and CHF exacerbation. Acute hypoxic respiratory failure due to acute on chronic systolic chf now on room air increase lasix to 40mg bid covid symptomatic management, dc steroids Acute UTI MSSA, changed to ancef CKD3 with recent jeannette monitor while diuresing Paroxysmal AFib Continue Eliquis, metoprolol CAD Continue aspirin Hold statin due to transaminitis Oba-tqzqbbn-rnpuzxway type 2 diabetes sliding scale insulin Diabetic diet unspecified dementia with acute delerium quetiapine Full Code DVT Prophylaxis: On Eliquis reason for continued hospitalization:iv diuresis Quality Stroke Does the patient have a stroke diagnosis?: No VTE Prior VTE?: No VTE Risk Level:: Medical - moderate - high VTE Device Contraindication: Treatment Not Indicated VTE Drug Contraindication: N/A - Med Ordered
[2024-03-16 11:16] VITALS: BP 106/67; PULSE 84; RESP 20; TEMP 36.9; O2SAT 97
[2024-03-16 11:40] LABS: Glucose, Whole Blood 185 mg/dL (60-115)
[2024-03-16 16:00] VITALS: BP 105/77; PULSE 67; RESP 20; TEMP 36.5; O2SAT 97
[2024-03-16 16:08] LABS: Glucose, Whole Blood 296 mg/dL (60-115)
[2024-03-16] MEDS: Furosemide 20 MG/2 ML VIAL 40 MG IVPUSH (16:35)
[2024-03-16 20:00] VITALS: BP 109/72; PULSE 93; RESP 20; TEMP 37; O2SAT 98
[2024-03-16 20:54] LABS: Glucose, Whole Blood 234 mg/dL (60-115)
[2024-03-16] MEDS: QUEtiapine Fumarate 25 MG TABLET PO (21:01)
[2024-03-16] MEDS: Melatonin 3 MG TABLET 6 MG PO (21:13)
[2024-03-16] MEDS: Acetaminophen 325 MG TABLET 650 MG PO (21:13)
[2024-03-17] VITALS (7 sets, daily range): BP systolic 92–128; BP diastolic 61–78; PULSE 85–95; RESP 14–17; TEMP 35.9–37.1; O2SAT 92–98
--- NOTE | 2024-03-17 05:52 | PC.NURSE ---
Pt AOx2, confused, forgetful, impulsive. Camera in room. Pt will call out for help, rarely rings call griffin, has Covid but is skeptical that he actually has it. Pt removes all medical monitoring equipment and gown numerous times throughout the night. Pt had equipment and gown replaced. Call griffin within reach, bed alarm on, camera in room..
[2024-03-17 06:47] LABS: Hematocrit 42.4 % (42.0-52.0); Hemoglobin 13.5 g/dl (14.0-18.0); Mean Corpuscular HGB Conc 31.8 g/dl (31.0-36.0); Mean Corpuscular Hemoglobin 31.8 pg (27.0-33.0); Mean Corpuscular Volume 99.8 fL (80.0-98.0); Mean Platelet Volume 11.8 fL (9.4-12.4); NRBC Pct Auto 0.3 /100WBC (0.0-0.2); Platelet Count 149 X10*3/uL (160-400); Red Blood Count 4.25 X10*6/uL (4.60-5.80); Red Cell Distribution Width 15.9 % (11.0-16.0); White Blood Count 9.4 X10*3/uL (4.8-10.8)
[2024-03-17 07:41] LABS: Alanine Aminotransferase 265 U/L (0-40); Albumin Level 3.9 g/dL (3.5-5.0); Alkaline Phosphatase 235 U/L (39-117); Anion Gap 22 (12-20); Aspartate Amino Transferase 66 U/L (5-37); Bilirubin Total 1.1 mg/dL (0.0-1.0); Blood Urea Nitrogen 110 mg/dL (9-16); Calcium 9.1 mg/dL (8.4-10.2); Carbon Dioxide 24 mmol/L (22-29); Chloride 103 mmol/L (96-108); Creatinine Clr Calc Pharmacy 25.1; Estimated Glomerular Filt Rate 26; Glucose Random 181 mg/dL (60-115); Potassium 5.6 mmol/L (3.3-5.1); Sodium 143 mmol/L (135-145)
[2024-03-17 07:44] LABS: Glucose, Whole Blood 183 mg/dL (60-115)
[2024-03-17] MEDS: Insulin Lispro 100 UNIT/ML 3 ML VIAL SUBCUT ×4 (08:25→21:01)
[2024-03-17] MEDS: Apixaban 2.5 MG TABLET PO ×2 (08:25→20:58)
[2024-03-17] MEDS: Metoprolol Tartrate 25 MG TABLET PO ×2 (08:25→20:58)
[2024-03-17] MEDS: Furosemide 40 MG TABLET PO (08:25)
[2024-03-17] MEDS: cephALEXin 500 MG CAPSULE PO (08:25)
[2024-03-17] MEDS: Aspirin 81 MG TAB.CHEW PO (08:25)
[2024-03-17] MEDS: Sodium Zirconium Cyclosilicate 10 GM POWD.PACK PO (08:43)
[2024-03-17] MEDS: Fluticasone Propionate Nasal 16 GM SPRAY 2 SPRAY NOSTRIL-B (08:44)
--- NOTE | 2024-03-17 09:12 | HO.PM.IMPN ---
Subjective Subjective Date of Service: 03/17/24 Interval History: agitated overnight pulled out iv Physical Exam Vital Signs: Vital Signs: Last Vital Signs Temp 98.2 F 03/17/24 08:00 Pulse 90 03/17/24 08:00 Resp 16 03/17/24 08:00 BP 128/74 03/17/24 08:00 Pulse Ox 94 03/17/24 08:00 O2 Del Method Room Air 03/17/24 08:00 O2 Flow Rate 3 03/14/24 17:16 BMI result Body Mass Index 30.9 General: AO X 1, no acute distress Resp: CTA bilateral, accessory muscles used CVS: S1,S2,RRR, 2+ edema GI: soft, non tender, non distended Neuro: motor grossly intact, alert Objective Data Active Medications Acetaminophen (Acetaminophen 325 Mg Tablet) 650 mg PO Q6H PRN PRN Reason: Pain, Mild (Pain Scale 1-3), fever or headache Last Admin: 03/16/24 21:13 Dose: 650 mg Documented By: JONNY Albuterol/Ipratropium (Albuterol/Iprat 2.5/0.5mg 3 Ml Ampul.Neb) 3 ml INHALE RQ4H WHILE AWAKE PRN PRN Reason: Shortness of Breath/Wheezing Apixaban (Apixaban 2.5 Mg Tablet) 2.5 mg PO BID [facility] Last Admin: 03/17/24 08:25 Dose: 2.5 mg Documented By: VICKI Aspirin (Aspirin 81 Mg Tab.Chew) 81 mg PO DAILY [facility] Last Admin: 03/17/24 08:25 Dose: 81 mg Documented By: VICKI Bisacodyl (Bisacodyl 10 Mg Supp.Rect) 10 mg [place] DAILY PRN PRN Reason: Constipation Calcium Carbonate (Calcium Carbonate 750 Mg Tab.Chew) 750 mg PO Q4H PRN PRN Reason: Heartburn Cephalexin HCl (Cephalexin 500 Mg Capsule) 500 mg PO Q12H [facility] Last Admin: 03/17/24 08:25 Dose: 500 mg Documented By: VICKI Fluticasone Propionate (Fluticasone Propionate Nasal 16 Gm [place]) 2 spray NOSTRIL-B DAILY [facility] Last Admin: 03/17/24 08:44 Dose: 2 spray Documented By: VICKI Furosemide (Furosemide 40 Mg Tablet) 40 mg PO DAILY [facility]; Protocol Last Admin: 03/17/24 08:25 Dose: 40 mg Documented By: VICKI Glucose (Glucose Gel 15 Gm Gel..Gram.) 15 gm PO Q15M PRN; Protocol PRN Reason: per Hypoglycemia Standing Ord. Guaifenesin/Dextromethorphan (Guaifenesin Dm 200/20/10 Ml 10 Ml Syrup) 10 ml PO Q4H PRN PRN Reason: Cough Dextrose (D10) 250 mls @ 750 mls/hr IV Q15M PRN; Protocol PRN Reason: per Hypoglycemia Standing Ord. Insulin Human Lispro (Insulin Lispro 100 Unit/Ml 3 Ml Vial) 0 unit SUBCUT QIDACHS [facility]; Protocol Last Admin: 03/17/24 08:25 Dose: 2 unit Documented By: VICKI Magnesium Hydroxide (Milk Of Magnesia 30 Ml Oral.Susp) 30 ml PO DAILY PRN PRN Reason: Constipation Melatonin (Melatonin 3 Mg Tablet) 6 mg PO BEDTIME PRN PRN Reason: Insomnia Last Admin: 03/16/24 21:13 Dose: 6 mg Documented By: JONNY Metoprolol Tartrate (Metoprolol Tartrate 25 Mg Tablet) 25 mg PO BID [facility]; Protocol Last Admin: 03/17/24 08:25 Dose: 25 mg Documented By: VICKI Ondansetron HCl (Ondansetron Hcl 4 Mg/2 Ml Vial) 4 mg IVPUSH Q8H PRN PRN Reason: Nausea and Vomiting Quetiapine Fumarate (Quetiapine Fumarate 25 Mg Tablet) 12.5 mg PO Q6H PRN PRN Reason: Agitation Last Admin: 03/15/24 18:01 Dose: 12.5 mg Documented By: JOSE Quetiapine Fumarate (Quetiapine Fumarate 25 Mg Tablet) 25 mg PO BEDTIME [facility] Last Admin: 03/16/24 21:01 Dose: 25 mg Documented By: JONNY Sodium Biphosphate/Sodium Phosphate (Sodium Phosphate,[place]-Dibasic 133 Ml Enema) 118 ml [place] DAILY PRN PRN Reason: consitpation Sodium Chloride (0.9 % Sodium Chloride Flush 3 Ml Syringe) [facility] Last Admin: 03/17/24 08:25 Dose: Not Given Documented By: VICKI Non-Admin Reason: No Access Labs 03/17/24 06:37 03/17/24 06:37 Labs: Laboratory Results - last 24 hr 03/16/24 03/16/24 03/16/24 11:17 16:01 20:46 MCV MCH MCHC RDW Plt Count MPV Absolute Nucleated RBC Nucleated RBC % (auto) Anion Gap Estim Creat Clear Calc Estimated GFR POC Glucose 185 H 296 H 234 H Random Glucose Calcium Total Bilirubin AST ALT Alkaline Phosphatase Total Protein Albumin 03/17/24 03/17/24 06:37 07:32 MCV 99.8 H MCH 31.8 MCHC 31.8 RDW 15.9 Plt Count 149 L MPV 11.8 Absolute Nucleated RBC 0.030 H Nucleated RBC % (auto) 0.3 H Anion Gap 22 H Estim Creat Clear Calc 25.1 Estimated GFR 26 POC Glucose 183 H Random Glucose 181 H Calcium 9.1 Total Bilirubin 1.1 H AST 66 H ALT 265 H Alkaline Phosphatase 235 H Total Protein 7.0 Albumin 3.9 Microbiology Microbiology Results: Microbiology 03/14/24 08:39 Blood Culture - Preliminary Blood - Venous No growth after 48 hours. 03/14/24 08:39 Blood Culture - Preliminary Blood - Venous No growth after 48 hours. 03/14/24 Unknown Urine Culture - Final Urine Catheterized - Rizzo Catheter Staphylococcus aureus Assessment and Plan (1) Hypoxia: Status: Acute (2) Acute UTI: Status: Acute (3) Fall: Status: Acute (4) COVID-19: Status: Acute Plan 84M PMH unspecified dementia,?HFrEF, paroxysmal AFib on Eliquis, CAD, and vne-ogqyzlj-tplrsanic type 2 diabetes who presented to the ED for evaluation after unwitnessed fall at [facility]. found to be positive for COVID, acute UTI, and CHF exacerbation. Acute hypoxic respiratory failure due to acute on chronic systolic chf now on room air increase lasix to 40mg bid (po due to pulled iv) transaminitis check abd us covid symptomatic management, dced steroids Acute UTI MSSA, keflex CKD3 with recent jeannette monitor while diuresing Paroxysmal AFib Continue Eliquis, metoprolol CAD Continue aspirin Hold statin due to transaminitis Wxo-lqmnnei-swqbrmnbk type 2 diabetes sliding scale insulin Diabetic diet unspecified dementia with acute delerium quetiapine Full Code DVT Prophylaxis: On Eliquis reason for continued hospitalization:working up transaminitis Quality Stroke Does the patient have a stroke diagnosis?: No VTE Prior VTE?: No VTE Risk Level:: Medical - moderate - high VTE Device Contraindication: Treatment Not Indicated VTE Drug Contraindication: N/A - Med Ordered
[2024-03-17 11:53] LABS: Glucose, Whole Blood 183 mg/dL (60-115)
--- NOTE | 2024-03-17 14:23 | MHC.CM.PN ---
Per rounds, pt is not ready for DC, anticipate DC to [facility] on 03/18/24. [facility] and [facility] following, pt. fand family have requested pt. not return to [facility].
[2024-03-17 16:52] LABS: Glucose, Whole Blood 291 mg/dL (60-115)
[2024-03-17 20:16] LABS: Glucose, Whole Blood 285 mg/dL (60-115)
[2024-03-17] MEDS: Acetaminophen 325 MG TABLET 650 MG PO (20:58)
[2024-03-17] MEDS: QUEtiapine Fumarate 25 MG TABLET PO (20:58)
[2024-03-17] MEDS: guaiFENesin DM 200/20/10 ML 10 ML SYRUP PO (21:07)
[2024-03-18] VITALS (7 sets, daily range): BP systolic 84–113; BP diastolic 50–78; PULSE 83–106; RESP 16–26; TEMP 36.1–36.7; O2SAT 95–96
[2024-03-18 06:49] LABS: Anion Gap 20 (12-20); Blood Urea Nitrogen 106 mg/dL (9-16); Carbon Dioxide 20 mmol/L (22-29); Chloride 107 mmol/L (96-108); Creatinine Clr Calc Pharmacy 25.6; Estimated Glomerular Filt Rate 26; Glucose Random 125 mg/dL (60-115); Potassium 4.7 mmol/L (3.3-5.1); Sodium 142 mmol/L (135-145)
[2024-03-18 07:06] LABS: Hemoglobin 13.3 g/dl (14.0-18.0); Mean Corpuscular HGB Conc 30.9 g/dl (31.0-36.0); Mean Corpuscular Hemoglobin 31.1 pg (27.0-33.0); Mean Corpuscular Volume 100.5 fL (80.0-98.0); NRBC Pct Auto 0.2 /100WBC (0.0-0.2); Platelet Count 141 X10*3/uL (160-400); Red Blood Count 4.28 X10*6/uL (4.60-5.80); Red Cell Distribution Width 16.1 % (11.0-16.0)
[2024-03-18 07:56] LABS: Glucose, Whole Blood 128 mg/dL (60-115)
[2024-03-18] MEDS: Aspirin 81 MG TAB.CHEW PO (08:21)
[2024-03-18] MEDS: Apixaban 2.5 MG TABLET PO ×2 (08:22→21:37)
[2024-03-18] MEDS: Furosemide 40 MG TABLET PO (08:22)
[2024-03-18] MEDS: cephALEXin 500 MG CAPSULE PO (08:22)
[2024-03-18] MEDS: Metoprolol Tartrate 25 MG TABLET PO ×2 (08:32→21:37)
[2024-03-18] MEDS: Fluticasone Propionate Nasal 16 GM SPRAY 2 SPRAY NOSTRIL-B (10:55)
--- NOTE | 2024-03-18 10:55 | P.PNIM_ITS ---
Subjective Subjective Date of Service: 03/18/24 Interval History: no complaints Physical Exam 2 Vital Signs: Vital Signs: Last Vital Signs Temp 96.9 F 03/18/24 07:48 Pulse 90 03/18/24 07:48 Resp 16 03/18/24 07:48 BP 96/57 L 03/18/24 07:48 Pulse Ox 95 03/18/24 07:48 O2 Del Method Room Air 03/18/24 07:48 O2 Flow Rate 3 03/14/24 17:16 BMI result Body Mass Index 30.9 General: AO X 1, no acute distress Resp: CTA bilateral, accessory muscles used CVS: S1,S2,RRR, 2+ edema GI: soft, non tender, non distended Neuro: motor grossly intact, alert Objective Data Active Medications Acetaminophen (Acetaminophen 325 Mg Tablet) 650 mg PO Q6H PRN PRN Reason: Pain, Mild (Pain Scale 1-3), fever or headache Last Admin: 03/17/24 20:58 Dose: 650 mg Documented By: PETER Albuterol/Ipratropium (Albuterol/Iprat 2.5/0.5mg 3 Ml Ampul.Neb) 3 ml INHALE RQ4H WHILE AWAKE PRN PRN Reason: Shortness of Breath/Wheezing Apixaban (Apixaban 2.5 Mg Tablet) 2.5 mg PO BID [facility] Last Admin: 03/18/24 08:22 Dose: 2.5 mg Documented By: LARRY Aspirin (Aspirin 81 Mg Tab.Chew) 81 mg PO DAILY [facility] Last Admin: 03/18/24 08:21 Dose: 81 mg Documented By: LARRY Bisacodyl (Bisacodyl 10 Mg Supp.Rect) 10 mg [place] DAILY PRN PRN Reason: Constipation Calcium Carbonate (Calcium Carbonate 750 Mg Tab.Chew) 750 mg PO Q4H PRN PRN Reason: Heartburn Cephalexin HCl (Cephalexin 500 Mg Capsule) 500 mg PO Q24H [facility] Last Admin: 03/18/24 08:22 Dose: 500 mg Documented By: LARRY Fluticasone Propionate (Fluticasone Propionate Nasal 16 Gm [place]) 2 spray NOSTRIL-B DAILY [facility] Last Admin: 03/18/24 10:55 Dose: 2 spray Documented By: LARRY Furosemide (Furosemide 40 Mg Tablet) 40 mg PO DAILY [facility]; Protocol Last Admin: 03/18/24 08:22 Dose: 40 mg Documented By: LARRY Glucose (Glucose Gel 15 Gm Gel..Gram.) 15 gm PO Q15M PRN; Protocol PRN Reason: per Hypoglycemia Standing Ord. Guaifenesin/Dextromethorphan (Guaifenesin Dm 200/20/10 Ml 10 Ml Syrup) 10 ml PO Q4H PRN PRN Reason: Cough Last Admin: 03/17/24 21:07 Dose: 10 ml Documented By: PETER Dextrose (D10) 250 mls @ 750 mls/hr IV Q15M PRN; Protocol PRN Reason: per Hypoglycemia Standing Ord. Insulin Human Lispro (Insulin Lispro 100 Unit/Ml 3 Ml Vial) 0 unit SUBCUT QIDACHS [facility]; Protocol Last Admin: 03/18/24 08:00 Dose: Not Given Documented By: LARRY Non-Admin Reason: No Insulin Coverage Magnesium Hydroxide (Milk Of Magnesia 30 Ml Oral.Susp) 30 ml PO DAILY PRN PRN Reason: Constipation Melatonin (Melatonin 3 Mg Tablet) 6 mg PO BEDTIME PRN PRN Reason: Insomnia Last Admin: 03/16/24 21:13 Dose: 6 mg Documented By: JONNY Metoprolol Tartrate (Metoprolol Tartrate 25 Mg Tablet) 25 mg PO BID [facility]; Protocol Last Admin: 03/18/24 08:32 Dose: 25 mg Documented By: LARRY Ondansetron HCl (Ondansetron Hcl 4 Mg/2 Ml Vial) 4 mg IVPUSH Q8H PRN PRN Reason: Nausea and Vomiting Quetiapine Fumarate (Quetiapine Fumarate 25 Mg Tablet) 12.5 mg PO Q6H PRN PRN Reason: Agitation Last Admin: 03/15/24 18:01 Dose: 12.5 mg Documented By: JOSE Quetiapine Fumarate (Quetiapine Fumarate 25 Mg Tablet) 25 mg PO BEDTIME [facility] Last Admin: 03/17/24 20:58 Dose: 25 mg Documented By: PETER Sodium Biphosphate/Sodium Phosphate (Sodium Phosphate,[place]-Dibasic 133 Ml [place]) 118 ml [place] DAILY PRN PRN Reason: consitpation Sodium Chloride (0.9 % Sodium Chloride Flush 3 Ml Syringe) 3 ml IVFLUSH QSHIFT [facility] Last Admin: 03/18/24 09:13 Dose: Not Given Documented By: LARRY Non-Admin Reason: No Access Labs 03/18/24 06:08 03/18/24 06:08 Labs: Laboratory Results - last 24 hr 03/17/24 03/17/24 03/17/24 11:44 16:46 20:10 MCV MCH MCHC RDW Plt Count MPV Absolute Nucleated RBC Nucleated RBC % (auto) Anion Gap Estim Creat Clear Calc Estimated GFR POC Glucose 183 H 291 H 285 H Random Glucose Calcium 03/18/24 03/18/24 06:08 07:19 MCV 100.5 H MCH 31.1 MCHC 30.9 L RDW 16.1 H Plt Count 141 L MPV 12.0 Absolute Nucleated RBC 0.020 H Nucleated RBC % (auto) 0.2 Anion Gap 20 Estim Creat Clear Calc 25.6 Estimated GFR 26 POC Glucose 128 H Random Glucose 125 H Calcium 9.0 Assessment and Plan (1) Hypoxia: Status: Acute (2) Acute UTI: Status: Acute (3) Fall: Status: Acute (4) COVID-19: Status: Acute Plan 84M PMH unspecified dementia,?HFrEF, paroxysmal AFib on Eliquis, CAD, and nrq-ydabzrw-oszawciqv type 2 diabetes who presented to the ED for evaluation after unwitnessed fall at [facility]. found to be positive for COVID, acute UTI, and CHF exacerbation. Acute hypoxic respiratory failure due to acute on chronic systolic chf now on room air lasix to 40mg bid (po due to pulled iv) back to baseline transaminitis check abd us covid symptomatic management, dced steroids Acute UTI MSSA, keflex CKD3 with recent jeannette stable Paroxysmal AFib Continue Eliquis, metoprolol CAD Continue aspirin Hold statin due to transaminitis Ici-sfunxkz-xdestfauy type 2 diabetes sliding scale insulin Diabetic diet unspecified dementia with acute delerium quetiapine debility pt eval Full Code DVT Prophylaxis: On Eliquis reason for continued hospitalization:working up transaminitis Quality Stroke Does the patient have a stroke diagnosis?: No VTE Prior VTE?: No VTE Risk Level:: Medical - moderate - high VTE Device Contraindication: Treatment Not Indicated VTE Drug Contraindication: N/A - Med Ordered
[2024-03-18 11:35] LABS: Glucose, Whole Blood 187 mg/dL (60-115)
[2024-03-18] MEDS: Insulin Lispro 100 UNIT/ML 3 ML VIAL SUBCUT ×3 (11:55→21:37)
[2024-03-18] MEDS: 0.9 % Sodium Chloride 500 ML IV (13:19)
[2024-03-18] MEDS: Acetaminophen 325 MG TABLET 650 MG PO (14:10)
[2024-03-18] MEDS: 0.9 % Sodium Chloride Flush 3 ML SYRINGE IVFLUSH ×2 (16:05→21:37)
[2024-03-18 16:21] LABS: Glucose, Whole Blood 236 mg/dL (60-115)
[2024-03-18 21:07] LABS: Glucose, Whole Blood 214 mg/dL (60-115)
[2024-03-18] MEDS: Melatonin 3 MG TABLET 6 MG PO (21:36)
[2024-03-18] MEDS: QUEtiapine Fumarate 25 MG TABLET PO (21:37)
[2024-03-19] VITALS (8 sets, daily range): BP systolic 82–110; BP diastolic 50–72; PULSE 90–113; RESP 18–24; TEMP 36.2–37; O2SAT 92–96
[2024-03-19 06:42] LABS: Anion Gap 23 (12-20); Blood Urea Nitrogen 99 mg/dL (9-16); Calcium 9.1 mg/dL (8.4-10.2); Carbon Dioxide 20 mmol/L (22-29); Chloride 108 mmol/L (96-108); Creatinine Clr Calc Pharmacy 27.1; Estimated Glomerular Filt Rate 28; Glucose Random 179 mg/dL (60-115); Potassium 4.9 mmol/L (3.3-5.1); Sodium 146 mmol/L (135-145)
[2024-03-19 06:49] LABS: Hematocrit 43.5 % (42.0-52.0); Hemoglobin 13.5 g/dl (14.0-18.0); Mean Corpuscular Hemoglobin 31.3 pg (27.0-33.0); Mean Corpuscular Volume 100.9 fL (80.0-98.0); Mean Platelet Volume 12.1 fL (9.4-12.4); Platelet Count 136 X10*3/uL (160-400); Red Blood Count 4.31 X10*6/uL (4.60-5.80); Red Cell Distribution Width 16.1 % (11.0-16.0); White Blood Count 10.1 X10*3/uL (4.8-10.8)
[2024-03-19 08:20] LABS: Glucose, Whole Blood 190 mg/dL (60-115)
[2024-03-19] MEDS: Aspirin 81 MG TAB.CHEW PO (10:12)
[2024-03-19] MEDS: Insulin Lispro 100 UNIT/ML 3 ML VIAL SUBCUT ×4 (10:13→22:01)
[2024-03-19] MEDS: 0.9 % Sodium Chloride Flush 3 ML SYRINGE IVFLUSH ×3 (10:13→20:12)
[2024-03-19] MEDS: cephALEXin 500 MG CAPSULE PO (10:13)
[2024-03-19] MEDS: Apixaban 2.5 MG TABLET PO ×2 (10:13→20:11)
[2024-03-19] MEDS: Metoprolol Tartrate 25 MG TABLET PO ×2 (10:13→20:11)
[2024-03-19] MEDS: Fluticasone Propionate Nasal 16 GM SPRAY 2 SPRAY NOSTRIL-B (10:23)
--- NOTE | 2024-03-19 10:53 | HO.PM.IMPN ---
Subjective Subjective Date of Service: 03/19/24 Interval History: no complaints Physical Exam Vital Signs: Vital Signs: Last Vital Signs Temp 97.4 F 03/19/24 08:00 Pulse 90 03/19/24 08:00 Resp 20 03/19/24 08:00 BP 110/67 03/19/24 08:00 Pulse Ox 94 03/19/24 08:00 O2 Del Method Room Air 03/19/24 08:00 O2 Flow Rate 2 03/18/24 20:00 BMI result Body Mass Index 30.9 General: AO X 1, no acute distress Resp: CTA bilateral, accessory muscles used CVS: S1,S2,RRR, 2+ edema L>R GI: soft, non tender, non distended Neuro: motor grossly intact, alert Objective Data Active Medications Acetaminophen (Acetaminophen 325 Mg Tablet) 650 mg PO Q6H PRN PRN Reason: Pain, Mild (Pain Scale 1-3), fever or headache Last Admin: 03/18/24 14:10 Dose: 650 mg Documented By: LARRY Albuterol/Ipratropium (Albuterol/Iprat 2.5/0.5mg 3 Ml Ampul.Neb) 3 ml INHALE RQ4H WHILE AWAKE PRN PRN Reason: Shortness of Breath/Wheezing Apixaban (Apixaban 2.5 Mg Tablet) 2.5 mg PO BID [facility] Last Admin: 03/19/24 10:13 Dose: 2.5 mg Documented By: CHRISTINE Aspirin (Aspirin 81 Mg Tab.Chew) 81 mg PO DAILY [facility] Last Admin: 03/19/24 10:12 Dose: 81 mg Documented By: CHRISTINE Bisacodyl (Bisacodyl 10 Mg Supp.Rect) 10 mg [place] DAILY PRN PRN Reason: Constipation Calcium Carbonate (Calcium Carbonate 750 Mg Tab.Chew) 750 mg PO Q4H PRN PRN Reason: Heartburn Cephalexin HCl (Cephalexin 500 Mg Capsule) 500 mg PO Q24H [facility] Last Admin: 03/19/24 10:13 Dose: 500 mg Documented By: CHRISTINE Fluticasone Propionate (Fluticasone Propionate Nasal 16 Gm [place]) 2 spray NOSTRIL-B DAILY [facility] Last Admin: 03/19/24 10:23 Dose: 2 spray Documented By: CHRISTINE Furosemide (Furosemide 40 Mg Tablet) 40 mg PO DAILY [facility]; Protocol Last Admin: 03/18/24 08:22 Dose: 40 mg Documented By: LARRY Glucose (Glucose Gel 15 Gm Gel..Gram.) 15 gm PO Q15M PRN; Protocol PRN Reason: per Hypoglycemia Standing Ord. Guaifenesin/Dextromethorphan (Guaifenesin Dm 200/20/10 Ml 10 Ml Syrup) 10 ml PO Q4H PRN PRN Reason: Cough Last Admin: 03/17/24 21:07 Dose: 10 ml Documented By: PETER Dextrose (D10) 250 mls @ 750 mls/hr IV Q15M PRN; Protocol PRN Reason: per Hypoglycemia Standing Ord. Insulin Human Lispro (Insulin Lispro 100 Unit/Ml 3 Ml Vial) 0 unit SUBCUT QIDACHS [facility]; Protocol Last Admin: 03/19/24 10:13 Dose: 2 unit Documented By: CHRISTINE Magnesium Hydroxide (Milk Of Magnesia 30 Ml Oral.Susp) 30 ml PO DAILY PRN PRN Reason: Constipation Melatonin (Melatonin 3 Mg Tablet) 6 mg PO BEDTIME PRN PRN Reason: Insomnia Last Admin: 03/18/24 21:36 Dose: 6 mg Documented By: MARIE Metoprolol Tartrate (Metoprolol Tartrate 25 Mg Tablet) 25 mg PO BID [facility]; Protocol Last Admin: 03/19/24 10:13 Dose: 25 mg Documented By: CHRISTINE Ondansetron HCl (Ondansetron Hcl 4 Mg/2 Ml Vial) 4 mg IVPUSH Q8H PRN PRN Reason: Nausea and Vomiting Quetiapine Fumarate (Quetiapine Fumarate 25 Mg Tablet) 12.5 mg PO Q6H PRN PRN Reason: Agitation Last Admin: 03/15/24 18:01 Dose: 12.5 mg Documented By: JOSE Quetiapine Fumarate (Quetiapine Fumarate 25 Mg Tablet) 25 mg PO BEDTIME [facility] Last Admin: 03/18/24 21:37 Dose: 25 mg Documented By: MARIE Sodium Biphosphate/Sodium Phosphate (Sodium Phosphate,[place]-Dibasic 133 Ml Enema) 118 ml [place] DAILY PRN PRN Reason: consitpation Sodium Chloride (0.9 % Sodium Chloride Flush 3 Ml Syringe) 3 ml IVFLUSH QSHIFT [facility] Last Admin: 03/19/24 10:13 Dose: 3 ml Documented By: CHRISTINE Labs 03/19/24 05:39 03/19/24 05:39 Labs: Laboratory Results - last 24 hr 03/18/24 03/18/24 03/18/24 11:14 16:10 21:01 MCV MCH MCHC RDW Plt Count MPV Absolute Nucleated RBC Nucleated RBC % (auto) Anion Gap Estim Creat Clear Calc Estimated GFR POC Glucose 187 H 236 H 214 H Random Glucose Calcium 03/19/24 03/19/24 05:39 08:10 MCV 100.9 H MCH 31.3 MCHC 31.0 RDW 16.1 H Plt Count 136 L MPV 12.1 Absolute Nucleated RBC 0.000 Nucleated RBC % (auto) 0.0 Anion Gap 23 H Estim Creat Clear Calc 27.1 Estimated GFR 28 POC Glucose 190 H Random Glucose 179 H Calcium 9.1 Microbiology Microbiology Results: Microbiology 03/14/24 08:39 Blood Culture - Final Blood - Venous No growth after 5 days. 03/14/24 08:39 Blood Culture - Final Blood - Venous No growth after 5 days. Assessment and Plan (1) Hypoxia: Status: Acute (2) Acute UTI: Status: Acute (3) Fall: Status: Acute (4) COVID-19: Status: Acute Plan 84M PMH unspecified dementia,?HFrEF, paroxysmal AFib on Eliquis, CAD, and azd-ufrbabs-ogcxtnhgv type 2 diabetes who presented to the ED for evaluation after unwitnessed fall at [facility]. found to be positive for COVID, acute UTI, and CHF exacerbation. Acute hypoxic respiratory failure due to acute on chronic systolic chf now on room air back to baseline hypotension 03/18/24 due to diuretics not sepsis will hold lasix for now, bp better after 500cc ns bolus transaminitis abd us negative LLE swelling check doppler covid symptomatic management, dced steroids Acute UTI MSSA, keflex CKD3 with recent jeannette stable Paroxysmal AFib Continue Eliquis, metoprolol CAD Continue aspirin Hold statin due to transaminitis Pso-mkmxrfj-renqfskih type 2 diabetes sliding scale insulin Diabetic diet unspecified dementia with acute delerium quetiapine debility pt eval Full Code DVT Prophylaxis: On Eliquis reason for continued hospitalization:working up lle swelling Quality Stroke Does the patient have a stroke diagnosis?: No VTE Prior VTE?: No VTE Risk Level:: Medical - moderate - high VTE Device Contraindication: Treatment Not Indicated VTE Drug Contraindication: N/A - Med Ordered
[2024-03-19 12:50] LABS: Glucose, Whole Blood 220 mg/dL (60-115)
--- NOTE | 2024-03-19 15:10 | MHC.CM.PN ---
EMR REVIEWED, PT CLEARED FOR STR HOWEVER NO BED OFFERS D/T COVID 19 +, [facility] WILLING TO TAKE PT SAT 03/20 IF RETEST IS NEG, CM WILL CONT TO FOLLOW DC NEEDS.
[2024-03-19 16:33] LABS: Glucose, Whole Blood 206 mg/dL (60-115)
[2024-03-19] MEDS: QUEtiapine Fumarate 25 MG TABLET PO (20:11)
[2024-03-19 20:52] LABS: Glucose, Whole Blood 210 mg/dL (60-115)
[2024-03-20] VITALS (9 sets, daily range): BP systolic 92–137; BP diastolic 58–86; PULSE 79–107; RESP 12–20; TEMP 36.1–37.1; O2SAT 92–99
[2024-03-20 07:40] LABS: Glucose, Whole Blood 118 mg/dL (60-115)
[2024-03-20] MEDS: 0.9 % Sodium Chloride Flush 3 ML SYRINGE IVFLUSH ×2 (08:45→14:01)
[2024-03-20] MEDS: cephALEXin 500 MG CAPSULE PO (08:45)
[2024-03-20] MEDS: Metoprolol Tartrate 25 MG TABLET PO ×2 (08:45→20:16)
[2024-03-20] MEDS: Apixaban 2.5 MG TABLET PO ×2 (08:45→20:19)
[2024-03-20] MEDS: Fluticasone Propionate Nasal 16 GM SPRAY 2 SPRAY NOSTRIL-B (08:45)
[2024-03-20] MEDS: Aspirin 81 MG TAB.CHEW PO (08:45)
--- NOTE | 2024-03-20 09:15 | P.PNIM_ITS ---
Subjective Subjective Date of Service: 03/20/24 Interval History: no complaints Physical Exam 2 Vital Signs: Vital Signs: Last Vital Signs Temp 97.2 F 03/20/24 07:19 Pulse 100 03/20/24 07:19 Resp 12 03/20/24 07:19 BP 113/86 03/20/24 07:19 Pulse Ox 92 03/20/24 07:19 O2 Del Method Room Air 03/20/24 07:19 O2 Flow Rate 2 03/18/24 20:00 BMI result Body Mass Index 30.9 General: AO X 1, no acute distress Resp: CTA bilateral, accessory muscles used CVS: S1,S2,RRR, 2+ edema L>R GI: soft, non tender, non distended Neuro: motor grossly intact, alert Objective Data Active Medications Acetaminophen (Acetaminophen 325 Mg Tablet) 650 mg PO Q6H PRN PRN Reason: Pain, Mild (Pain Scale 1-3), fever or headache Last Admin: 03/18/24 14:10 Dose: 650 mg Documented By: LARRY Albuterol/Ipratropium (Albuterol/Iprat 2.5/0.5mg 3 Ml Ampul.Neb) 3 ml INHALE RQ4H WHILE AWAKE PRN PRN Reason: Shortness of Breath/Wheezing Apixaban (Apixaban 2.5 Mg Tablet) 2.5 mg PO BID [facility] Last Admin: 03/20/24 08:45 Dose: 2.5 mg Documented By: FERMIN Aspirin (Aspirin 81 Mg Tab.Chew) 81 mg PO DAILY [facility] Last Admin: 03/20/24 08:45 Dose: 81 mg Documented By: FERMIN Bisacodyl (Bisacodyl 10 Mg Supp.Rect) 10 mg [place] DAILY PRN PRN Reason: Constipation Calcium Carbonate (Calcium Carbonate 750 Mg Tab.Chew) 750 mg PO Q4H PRN PRN Reason: Heartburn Cephalexin HCl (Cephalexin 500 Mg Capsule) 500 mg PO Q24H [facility] Last Admin: 03/20/24 08:45 Dose: 500 mg Documented By: FERMIN Fluticasone Propionate (Fluticasone Propionate Nasal 16 Gm [place]) 2 spray NOSTRIL-B DAILY [facility] Last Admin: 03/20/24 08:45 Dose: 2 spray Documented By: FERMIN Furosemide (Furosemide 40 Mg Tablet) 40 mg PO DAILY [facility]; Protocol Last Admin: 03/18/24 08:22 Dose: 40 mg Documented By: LARRY Glucose (Glucose Gel 15 Gm Gel..Gram.) 15 gm PO Q15M PRN; Protocol PRN Reason: per Hypoglycemia Standing Ord. Guaifenesin/Dextromethorphan (Guaifenesin Dm 200/20/10 Ml 10 Ml Syrup) 10 ml PO Q4H PRN PRN Reason: Cough Last Admin: 03/17/24 21:07 Dose: 10 ml Documented By: PETER Dextrose (D10) 250 mls @ 750 mls/hr IV Q15M PRN; Protocol PRN Reason: per Hypoglycemia Standing Ord. Insulin Human Lispro (Insulin Lispro 100 Unit/Ml 3 Ml Vial) 0 unit SUBCUT QIDACHS [facility]; Protocol Last Admin: 03/20/24 07:42 Dose: Not Given Documented By: FERMIN Non-Admin Reason: pdx=[id number] Magnesium Hydroxide (Milk Of Magnesia 30 Ml Oral.Susp) 30 ml PO DAILY PRN PRN Reason: Constipation Melatonin (Melatonin 3 Mg Tablet) 6 mg PO BEDTIME PRN PRN Reason: Insomnia Last Admin: 03/18/24 21:36 Dose: 6 mg Documented By: MARIE Metoprolol Tartrate (Metoprolol Tartrate 25 Mg Tablet) 25 mg PO BID [facility]; Protocol Last Admin: 03/20/24 08:45 Dose: 25 mg Documented By: FERMIN Ondansetron HCl (Ondansetron Hcl 4 Mg/2 Ml Vial) 4 mg IVPUSH Q8H PRN PRN Reason: Nausea and Vomiting Quetiapine Fumarate (Quetiapine Fumarate 25 Mg Tablet) 12.5 mg PO Q6H PRN PRN Reason: Agitation Last Admin: 03/15/24 18:01 Dose: 12.5 mg Documented By: JOSE Quetiapine Fumarate (Quetiapine Fumarate 25 Mg Tablet) 25 mg PO BEDTIME [facility] Last Admin: 03/19/24 20:11 Dose: 25 mg Documented By: AJAY Sodium Biphosphate/Sodium Phosphate (Sodium Phosphate,[place]-Dibasic 133 Ml Enema) 118 ml [place] DAILY PRN PRN Reason: consitpation Sodium Chloride (0.9 % Sodium Chloride Flush 3 Ml Syringe) 3 ml IVFLUSH QSHIFT [facility] Last Admin: 03/20/24 08:45 Dose: 3 ml Documented By: FERMIN Labs 03/19/24 05:39 03/19/24 05:39 Labs: Laboratory Results - last 24 hr 03/19/24 03/19/24 03/19/24 12:18 16:09 20:46 POC Glucose 220 H 206 H 210 H 03/20/24 07:27 POC Glucose 118 H Microbiology Microbiology Results: Microbiology 03/14/24 08:39 Blood Culture - Final Blood - Venous No growth after 5 days. 03/14/24 08:39 Blood Culture - Final Blood - Venous No growth after 5 days. Assessment and Plan (1) Hypoxia: Status: Acute (2) Acute UTI: Status: Acute (3) Fall: Status: Acute (4) COVID-19: Status: Acute Plan 84M PMH unspecified dementia,?HFrEF, paroxysmal AFib on Eliquis, CAD, and xrj-igkzvkb-ssasqwphz type 2 diabetes who presented to the ED for evaluation after unwitnessed fall at [facility]. found to be positive for COVID, acute UTI, and CHF exacerbation. Acute hypoxic respiratory failure due to acute on chronic systolic chf now on room air back to baseline hypotension 03/18/24 due to diuretics not sepsis improved, lasix on hold transaminitis abd us negative LLE swelling doppler negative covid symptomatic management, check repeat swab Acute UTI MSSA, keflex CKD3 with recent jeannette stable Paroxysmal AFib Continue Eliquis, metoprolol CAD Continue aspirin Hold statin due to transaminitis Yml-hnmiyvk-iedbwhoxh type 2 diabetes sliding scale insulin Diabetic diet unspecified dementia with acute delerium quetiapine Full Code DVT Prophylaxis: On Eliquis reason for continued hospitalization:safe dispo Quality Stroke Does the patient have a stroke diagnosis?: No VTE Prior VTE?: No VTE Risk Level:: Medical - moderate - high VTE Device Contraindication: Treatment Not Indicated VTE Drug Contraindication: N/A - Med Ordered
[2024-03-20 09:51] LABS: COVID-19 Test Positive (Negative); IDNOW Serial# 6674DD1D
[2024-03-20 11:39] LABS: Glucose, Whole Blood 151 mg/dL (60-115)
[2024-03-20] MEDS: Insulin Lispro 100 UNIT/ML 3 ML VIAL SUBCUT ×3 (11:47→21:14)
[2024-03-20] MEDS: Acetaminophen 325 MG TABLET 650 MG PO (14:00)
[2024-03-20 16:46] LABS: Glucose, Whole Blood 188 mg/dL (60-115)
[2024-03-20] MEDS: QUEtiapine Fumarate 25 MG TABLET PO (20:16)
[2024-03-20] MEDS: guaiFENesin DM 200/20/10 ML 10 ML SYRUP PO (20:26)
[2024-03-20 20:57] LABS: Glucose, Whole Blood 258 mg/dL (60-115)
[2024-03-20 22:37] LABS: Hematocrit 41.5 % (42.0-52.0); Hemoglobin 12.9 g/dl (14.0-18.0); Mean Corpuscular HGB Conc 31.1 g/dl (31.0-36.0); Mean Corpuscular Hemoglobin 31.4 pg (27.0-33.0); Mean Platelet Volume 11.6 fL (9.4-12.4); NRBC Pct Auto 0.4 /100WBC (0.0-0.2); Platelet Count 153 X10*3/uL (160-400); Red Blood Count 4.11 X10*6/uL (4.60-5.80); Red Cell Distribution Width 16.4 % (11.0-16.0); White Blood Count 8.3 X10*3/uL (4.8-10.8)
[2024-03-20 22:54] LABS: VBG Base Excess 5.6 mmol/L; VBG HCO3 32 mmol/L (22-26); VBG pCO2 56 mmHg; VBG pH 7.36 (7.32-7.43); VBG pO2 42 mmHg
[2024-03-20 22:54] LABS: Venous Blood Gas Refer to POC result
[2024-03-20 22:55] LABS: Alanine Aminotransferase 70 U/L (0-40); Albumin Level 3.5 g/dL (3.5-5.0); Alkaline Phosphatase 206 U/L (39-117); Anion Gap 15 (12-20); Aspartate Amino Transferase 43 U/L (5-37); Bilirubin Direct 0.7 mg/dL (0.0-0.5); Bilirubin Total 1.2 mg/dL (0.0-1.0); Blood Urea Nitrogen 85 mg/dL (9-16); Calcium 8.7 mg/dL (8.4-10.2); Carbon Dioxide 28 mmol/L (22-29); Chloride 106 mmol/L (96-108); Creatinine Clr Calc Pharmacy 28.8; Estimated Glomerular Filt Rate 30; Glucose Random 218 mg/dL (60-115); Potassium 4.2 mmol/L (3.3-5.1); Sodium 145 mmol/L (135-145); Total Protein 6.2 g/dL (6.5-8.0)
[2024-03-21] VITALS (7 sets, daily range): BP systolic 92–117; BP diastolic 64–74; PULSE 80–100; RESP 16–20; TEMP 36.2–36.9; O2SAT 92–100
[2024-03-21 07:36] LABS: Glucose, Whole Blood 90 mg/dL (60-115)
[2024-03-21] MEDS: Apixaban 2.5 MG TABLET PO (08:39)
[2024-03-21] MEDS: Metoprolol Tartrate 25 MG TABLET PO ×2 (08:39→20:38)
[2024-03-21] MEDS: cephALEXin 500 MG CAPSULE PO (08:39)
[2024-03-21] MEDS: Fluticasone Propionate Nasal 16 GM SPRAY 2 SPRAY NOSTRIL-B (08:40)
[2024-03-21] MEDS: 0.9 % Sodium Chloride Flush 3 ML SYRINGE IVFLUSH ×3 (08:40→20:38)
[2024-03-21] MEDS: Aspirin 81 MG TAB.CHEW PO (08:40)
--- NOTE | 2024-03-21 09:41 | HO.PM.IMPN ---
Subjective Subjective Date of Service: 03/21/24 Interval History: no complaints, had difficulty getting accurate saturation overnight so placed on 7L O2, but unclear if truly hypoxic, now comfortable 93% on room air Physical Exam Vital Signs: Vital Signs: Last Vital Signs Temp 97.1 F 03/21/24 07:44 Pulse 100 03/21/24 07:44 Resp 20 03/21/24 07:44 BP 105/74 03/21/24 07:44 Pulse Ox 98 03/21/24 07:44 O2 Del Method Room Air 03/21/24 07:44 O2 Flow Rate 7 03/21/24 04:00 BMI result Body Mass Index 30.9 General: AO X 1, no acute distress Resp: CTA bilateral, accessory muscles used CVS: S1,S2,RRR, 2+ edema L>R GI: soft, non tender, non distended Neuro: motor grossly intact, alert Objective Data Active Medications Acetaminophen (Acetaminophen 325 Mg Tablet) 650 mg PO Q6H PRN PRN Reason: Pain, Mild (Pain Scale 1-3), fever or headache Last Admin: 03/20/24 14:00 Dose: 650 mg Documented By: FERMIN Albuterol/Ipratropium (Albuterol/Iprat 2.5/0.5mg 3 Ml Ampul.Neb) 3 ml INHALE RQ4H WHILE AWAKE PRN PRN Reason: Shortness of Breath/Wheezing Apixaban (Apixaban 2.5 Mg Tablet) 2.5 mg PO BID [facility] Last Admin: 03/21/24 08:39 Dose: 2.5 mg Documented By: JASMYNE Aspirin (Aspirin 81 Mg Tab.Chew) 81 mg PO DAILY [facility] Last Admin: 03/21/24 08:40 Dose: 81 mg Documented By: JASMYNE Bisacodyl (Bisacodyl 10 Mg Supp.Rect) [address] DAILY PRN PRN Reason: Constipation Calcium Carbonate (Calcium Carbonate 750 Mg Tab.Chew) 750 mg PO Q4H PRN PRN Reason: Heartburn Cephalexin HCl (Cephalexin 500 Mg Capsule) 500 mg PO Q24H [facility] Last Admin: 03/21/24 08:39 Dose: 500 mg Documented By: JASMYNE Fluticasone Propionate (Fluticasone Propionate Nasal 16 Gm [place]) 2 spray NOSTRIL-B DAILY [facility] Last Admin: 03/21/24 08:40 Dose: 2 spray Documented By: JASMYNE Furosemide (Furosemide 40 Mg Tablet) 40 mg PO DAILY [facility]; Protocol Last Admin: 03/18/24 08:22 Dose: 40 mg Documented By: LARRY Glucose (Glucose Gel 15 Gm Gel..Gram.) 15 gm PO Q15M PRN; Protocol PRN Reason: per Hypoglycemia Standing Ord. Guaifenesin/Dextromethorphan (Guaifenesin Dm 200/20/10 Ml 10 Ml Syrup) 10 ml PO Q4H PRN PRN Reason: Cough Last Admin: 03/20/24 20:26 Dose: 10 ml Documented By: AJAY Dextrose (D10) 250 mls @ 750 mls/hr IV Q15M PRN; Protocol PRN Reason: per Hypoglycemia Standing Ord. Insulin Human Lispro (Insulin Lispro 100 Unit/Ml 3 Ml Vial) 0 unit SUBCUT QIDACHS [facility]; Protocol Last Admin: 03/21/24 07:44 Dose: Not Given Documented By: JASMYNE Non-Admin Reason: No Insulin Coverage Magnesium Hydroxide (Milk Of Magnesia 30 Ml Oral.Susp) 30 ml PO DAILY PRN PRN Reason: Constipation Melatonin (Melatonin 3 Mg Tablet) 6 mg PO BEDTIME PRN PRN Reason: Insomnia Last Admin: 03/18/24 21:36 Dose: 6 mg Documented By: MARIE Metoprolol Tartrate (Metoprolol Tartrate 25 Mg Tablet) 25 mg PO BID [facility]; Protocol Last Admin: 03/21/24 08:39 Dose: 25 mg Documented By: JASMYNE Ondansetron HCl (Ondansetron Hcl 4 Mg/2 Ml Vial) 4 mg IVPUSH Q8H PRN PRN Reason: Nausea and Vomiting Quetiapine Fumarate (Quetiapine Fumarate 25 Mg Tablet) 12.5 mg PO Q6H PRN PRN Reason: Agitation Last Admin: 03/15/24 18:01 Dose: 12.5 mg Documented By: JOSE Quetiapine Fumarate (Quetiapine Fumarate 25 Mg Tablet) 25 mg PO BEDTIME [facility] Last Admin: 03/20/24 20:16 Dose: 25 mg Documented By: AJAY Sodium Biphosphate/Sodium Phosphate (Sodium Phosphate,[place]-Dibasic 133 Ml Enema) [address] DAILY PRN PRN Reason: consitpation Sodium Chloride (0.9 % Sodium Chloride Flush 3 Ml Syringe) 3 ml IVFLUSH QSHIFT [facility] Last Admin: 03/21/24 08:40 Dose: 3 ml Documented By: JASMYNE Labs 03/20/24 22:30 03/20/24 22:30 Labs: Laboratory Results - last 24 hr 03/20/24 03/20/24 03/20/24 09:35 11:21 16:09 MCV MCH MCHC RDW Plt Count MPV Absolute Nucleated RBC Nucleated RBC % (auto) VBG pH VBG pCO2 VBG pO2 VBG HCO3 VBG O2 Saturation VBG Base Excess Anion Gap Estim Creat Clear Calc Estimated GFR POC Glucose 151 H 188 H Random Glucose Calcium Total Bilirubin Direct Bilirubin AST ALT Alkaline Phosphatase Total Protein Albumin COVID-19 ([facility]) Positive A COVID-19 Clin Com See Note 03/20/24 03/20/24 03/20/24 20:53 22:30 22:34 MCV 101.0 H MCH 31.4 MCHC 31.1 RDW 16.4 H Plt Count 153 L MPV 11.6 Absolute Nucleated RBC 0.030 H Nucleated RBC % (auto) 0.4 H VBG pH 7.36 VBG pCO2 56 VBG pO2 42 VBG HCO3 32 H VBG O2 Saturation 60.0 VBG Base Excess 5.6 Anion Gap 15 Estim Creat Clear Calc 28.8 Estimated GFR 30 POC Glucose 258 H Random Glucose 218 H Calcium 8.7 Total Bilirubin 1.2 H Direct Bilirubin 0.7 H AST 43 H ALT 70 H Alkaline Phosphatase 206 H Total Protein 6.2 L Albumin 3.5 COVID-19 ([facility]) COVID-19 Clin Com 03/21/24 07:28 MCV MCH MCHC RDW Plt Count MPV Absolute Nucleated RBC Nucleated RBC % (auto) VBG pH VBG pCO2 VBG pO2 VBG HCO3 VBG O2 Saturation VBG Base Excess Anion Gap Estim Creat Clear Calc Estimated GFR POC Glucose 90 Random Glucose Calcium Total Bilirubin Direct Bilirubin AST ALT Alkaline Phosphatase Total Protein Albumin COVID-19 ([facility]) COVID-19 Clin Com Assessment and Plan (1) Hypoxia: Status: Acute (2) Acute UTI: Status: Acute (3) Fall: Status: Acute (4) COVID-19: Status: Acute Plan 84M PMH unspecified dementia,?HFrEF, paroxysmal AFib on Eliquis, CAD, and cbg-kevyosa-hzaitiljj type 2 diabetes who presented to the ED for evaluation after unwitnessed fall at [facility]. found to be positive for COVID, acute UTI, and CHF exacerbation. Acute hypoxic respiratory failure due to acute on chronic systolic chf with EF 10%, grade 3 diastolic dysfunction, severe now on room air unclear if measure hypoxia overnight true hypoxia or due to poor peripheral circulation check CXR, monitor hypotension 03/18/24 due to diuretics, cardiomyopathy, not sepsis improved, lasix on hold transaminitis abd us negative likely cardiogenic LLE swelling doppler negative covid symptomatic management Acute UTI MSSA, keflex day 4 CKD3 with recent jeannette stable Paroxysmal AFib Continue Eliquis, metoprolol CAD Continue aspirin Hold statin due to transaminitis Qxk-aycdfrw-ceoqdezki type 2 diabetes sliding scale insulin Diabetic diet unspecified dementia with acute delerium quetiapine Full Code DVT Prophylaxis: On Eliquis reason for continued hospitalization:safe dispo Quality Stroke Does the patient have a stroke diagnosis?: No VTE Prior VTE?: No VTE Risk Level:: Medical - moderate - high VTE Device Contraindication: Treatment Not Indicated VTE Drug Contraindication: N/A - Med Ordered
[2024-03-21 11:10] LABS: Glucose, Whole Blood 81 mg/dL (60-115)
[2024-03-21] MEDS: Milk of Magnesia 30 ML ORAL.SUSP PO (13:07)
[2024-03-21] MEDS: Acetaminophen 325 MG TABLET 650 MG PO (13:07)
[2024-03-21 16:10] LABS: Glucose, Whole Blood 111 mg/dL (60-115)
[2024-03-21 20:32] LABS: Glucose, Whole Blood 163 mg/dL (60-115)
[2024-03-21] MEDS: Melatonin 3 MG TABLET 6 MG PO (20:38)
[2024-03-21] MEDS: QUEtiapine Fumarate 25 MG TABLET PO (20:38)
[2024-03-21] MEDS: Insulin Lispro 100 UNIT/ML 3 ML VIAL SUBCUT (20:39)
[2024-03-21] MEDS: guaiFENesin DM 200/20/10 ML 10 ML SYRUP PO (23:41)
[2024-03-21] MEDS: QUEtiapine Fumarate 25 MG TABLET 12.5 MG PO (23:41)
[2024-03-22] VITALS (9 sets, daily range): BP systolic 78–105; BP diastolic 54–75; PULSE 80–102; RESP 16–20; TEMP 36.2–36.9; O2SAT 98–100
[2024-03-22 07:36] LABS: Glucose, Whole Blood 149 mg/dL (60-115)
[2024-03-22] MEDS: cephALEXin 500 MG CAPSULE PO (08:54)
[2024-03-22] MEDS: Aspirin 81 MG TAB.CHEW PO (08:54)
[2024-03-22] MEDS: Metoprolol Tartrate 25 MG TABLET PO (08:54)
[2024-03-22] MEDS: 0.9 % Sodium Chloride Flush 3 ML SYRINGE IVFLUSH ×3 (08:55→19:52)
[2024-03-22] MEDS: Fluticasone Propionate Nasal 16 GM SPRAY 2 SPRAY NOSTRIL-B (08:55)
--- NOTE | 2024-03-22 09:00 | P.PNIM_ITS ---
Subjective Subjective Date of Service: 03/22/24 Interval History: confused Physical Exam 2 Vital Signs: Vital Signs: Last Vital Signs Temp 97.5 F 03/22/24 07:22 Pulse 102 H 03/22/24 07:22 Resp 16 03/22/24 07:22 BP 105/75 03/22/24 07:22 Pulse Ox 99 03/22/24 07:22 O2 Del Method Oxymask 03/22/24 07:22 O2 Flow Rate 3 03/22/24 07:22 BMI result Body Mass Index 30.9 General: AO X 1, no acute distress Resp: CTA bilateral, accessory muscles used CVS: S1,S2,RRR, 2+ edema L>R GI: soft, non tender, non distended Neuro: motor grossly intact, alert Objective Data Active Medications Acetaminophen (Acetaminophen 325 Mg Tablet) 650 mg PO Q6H PRN PRN Reason: Pain, Mild (Pain Scale 1-3), fever or headache Last Admin: 03/21/24 13:07 Dose: 650 mg Documented By: JASMYNE Apixaban (Apixaban 2.5 Mg Tablet) 2.5 mg PO BID [facility] Last Admin: 03/21/24 08:39 Dose: 2.5 mg Documented By: JASMYNE Aspirin (Aspirin 81 Mg Tab.Chew) 81 mg PO DAILY [facility] Last Admin: 03/21/24 08:40 Dose: 81 mg Documented By: JASMYNE Bisacodyl (Bisacodyl 10 Mg Supp.Rect) 10 mg [place] DAILY PRN PRN Reason: Constipation Calcium Carbonate (Calcium Carbonate 750 Mg Tab.Chew) 750 mg PO Q4H PRN PRN Reason: Heartburn Cephalexin HCl (Cephalexin 500 Mg Capsule) 500 mg PO Q24H [facility] Last Admin: 03/21/24 08:39 Dose: 500 mg Documented By: JASMYNE Fluticasone Propionate (Fluticasone Propionate Nasal 16 Gm [place]) 2 spray NOSTRIL-B DAILY [facility] Last Admin: 03/21/24 08:40 Dose: 2 spray Documented By: JASMYNE Furosemide (Furosemide 40 Mg Tablet) 40 mg PO DAILY [facility]; Protocol Last Admin: 03/18/24 08:22 Dose: 40 mg Documented By: LARRY Glucose (Glucose Gel 15 Gm Gel..Gram.) 15 gm PO Q15M PRN; Protocol PRN Reason: per Hypoglycemia Standing Ord. Guaifenesin/Dextromethorphan (Guaifenesin Dm 200/20/10 Ml 10 Ml Syrup) 10 ml PO Q4H PRN PRN Reason: Cough Last Admin: 03/21/24 23:41 Dose: 10 ml Documented By: PETER Dextrose (D10) 250 mls @ 750 mls/hr IV Q15M PRN; Protocol PRN Reason: per Hypoglycemia Standing Ord. Insulin Human Lispro (Insulin Lispro 100 Unit/Ml 3 Ml Vial) 0 unit SUBCUT QIDACHS [facility]; Protocol Last Admin: 03/22/24 07:41 Dose: Not Given Documented By: JASMYNE Non-Admin Reason: No Insulin Coverage Magnesium Hydroxide (Milk Of Magnesia 30 Ml Oral.Susp) 30 ml PO DAILY PRN PRN Reason: Constipation Last Admin: 03/21/24 13:07 Dose: 30 ml Documented By: JASMYNE Melatonin (Melatonin 3 Mg Tablet) 6 mg PO BEDTIME PRN PRN Reason: Insomnia Last Admin: 03/21/24 20:38 Dose: 6 mg Documented By: PETER Metoprolol Tartrate (Metoprolol Tartrate 25 Mg Tablet) 25 mg PO BID [facility]; Protocol Last Admin: 03/21/24 20:38 Dose: 25 mg Documented By: PETER Ondansetron HCl (Ondansetron Hcl 4 Mg/2 Ml Vial) 4 mg IVPUSH Q8H PRN PRN Reason: Nausea and Vomiting Quetiapine Fumarate (Quetiapine Fumarate 25 Mg Tablet) 12.5 mg PO Q6H PRN PRN Reason: Agitation Last Admin: 03/21/24 23:41 Dose: 12.5 mg Documented By: PETER Quetiapine Fumarate (Quetiapine Fumarate 25 Mg Tablet) 25 mg PO BEDTIME [facility] Last Admin: 03/21/24 20:38 Dose: 25 mg Documented By: PETER Sodium Biphosphate/Sodium Phosphate (Sodium Phosphate,[place]-Dibasic 133 Ml Enema) 118 ml [place] DAILY PRN PRN Reason: consitpation Sodium Chloride (0.9 % Sodium Chloride Flush 3 Ml Syringe) 3 ml IVFLUSH [facility] Last Admin: 03/21/24 20:38 Dose: 3 ml Documented By: PETER Labs 03/20/24 22:30 03/20/24 22:30 Labs: Laboratory Results - last 24 hr 03/21/24 03/21/24 03/21/24 11:04 15:56 20:24 POC Glucose 81 111 163 H 03/22/24 07:26 POC Glucose 149 H Assessment and Plan (1) Hypoxia: Status: Acute (2) Acute UTI: Status: Acute (3) Fall: Status: Acute (4) COVID-19: Status: Acute Plan 84M PMH unspecified dementia,?HFrEF, paroxysmal AFib on Eliquis, CAD, and plz-ovjurla-arugkzesb type 2 diabetes who presented to the ED for evaluation after unwitnessed fall at [facility]. found to be positive for COVID, acute UTI, and CHF exacerbation. Acute hypoxic respiratory failure due to acute on chronic systolic chf with EF 10%, grade 3 diastolic dysfunction, severe now on 2L unclear if measure hypoxia overnight true hypoxia or due to poor peripheral circulation cxr with right pleural effusion, will plan for thoracentesis hypotension 03/18/24 due to diuretics, cardiomyopathy, not sepsis improved, restart po lasix transaminitis abd us negative likely cardiogenic LLE swelling doppler negative covid symptomatic management Acute UTI MSSA, keflex day 5 CKD3 with recent jeannette stable Paroxysmal AFib Continue Eliquis, metoprolol CAD Continue aspirin Hold statin due to transaminitis Ehn-cyiyznj-jjlrrzmpf type 2 diabetes sliding scale insulin Diabetic diet unspecified dementia with acute delerium quetiapine Full Code DVT Prophylaxis: On Eliquis reason for continued hospitalization: pleural effusion management Quality Stroke Does the patient have a stroke diagnosis?: No VTE Prior VTE?: No VTE Risk Level:: Medical - moderate - high VTE Device Contraindication: Treatment Not Indicated VTE Drug Contraindication: N/A - Med Ordered
[2024-03-22] MEDS: Furosemide 40 MG TABLET PO (10:20)
--- NOTE | 2024-03-22 10:34 | MHC.CM.PN ---
EMR REVIEWED, PT NOW W/BILATERAL PLEURAL EFFUSIONS AND NOT MEDICALLY CLEARED, NO LOCAL BED OFFERS AT THIS TIME, DBV MAY HAVE A MAIL BED AFTER HOLIDAY VS EAT LONG MEADOW SKILLED, CM WILL CONT TO FOLLOW DC NEEDS.
[2024-03-22] MEDS: Insulin Lispro 100 UNIT/ML 3 ML VIAL SUBCUT ×3 (11:14→21:10)
[2024-03-22] MEDS: 0.9 % Sodium Chloride 500 ML IV (11:15)
[2024-03-22 11:29] LABS: Glucose, Whole Blood 185 mg/dL (60-115)
[2024-03-22] MEDS: Midodrine HCl 2.5 MG TABLET PO ×2 (12:41→19:51)
--- NOTE | 2024-03-22 14:21 | MHC.SL.SWA ---
Speech Pathologist Impression: Moderate oropharyngeal dysphagia secondary to weakness, respiratory compromise Risk of Aspiration Due to: Medically Fragile History of Pneumonia Reduced Cognition Weak Cough Dysphasia Diet Status: Liquid Consistency and Strategies for Safe Swallow: Liquid Intake Recommendation: Thin Liquid Intake Strategies: Small Sips Solid Food Consistency: Dietary Recommendations: Pureed (NDD1) Additional Modifications to Solid Foods: Oral Medication Intake: Crushed with Puree Please contact the pharmacy regarding appropriate crushable or liquid drug formulations that are available whenever modified delivery is recommended. Compensatory Strategies and Precautions to be Taken for Safe Swallow: Sitting Upright (90 deg) No Straw Small Bites and Sips Rate of Ingestion Change Supervision While Eating and Drinking for Safe Swallow: Total Supervision (1:1) Foods to Avoid: Swallowing Recommended Treatments: Ongoing assessment while inpatient, consider BUILDING CUSTODIAL SUPERVISOR intervention upon d/c Recommendation for Speech: Comment: Frequency/Duration: Daily M-F Date Range for Service Req: Timeline to reassess: Clinical Support Associate Clinican/Clinical Fellow: No Supervisory Statement: I have reviewed and agree with the student/clinical fellow's documentation: N/A Speech Language Pathologist: Daysi Peña M.S., CCC-BUILDING CUSTODIAL SUPERVISOR
[2024-03-22] MEDS: guaiFENesin DM 200/20/10 ML 10 ML SYRUP PO (17:26)
[2024-03-22] MEDS: QUEtiapine Fumarate 25 MG TABLET PO (19:52)
[2024-03-22 20:22] LABS: Glucose, Whole Blood 181 mg/dL (60-115)
[2024-03-22 20:22] LABS: Glucose, Whole Blood 152 mg/dL (60-115)
[2024-03-23] VITALS (12 sets, daily range): BP systolic 86–119; BP diastolic 52–68; PULSE 78–876; RESP 14–19; TEMP 36.1–37.4; O2SAT 94–100
[2024-03-23] MEDS: QUEtiapine Fumarate 25 MG TABLET 12.5 MG PO (02:45)
[2024-03-23 07:17] LABS: Glucose, Whole Blood 117 mg/dL (60-115)
[2024-03-23 08:32] LABS: Mean Corpuscular HGB Conc 29.8 g/dl (31.0-36.0); Mean Corpuscular Hemoglobin 31.4 pg (27.0-33.0); Mean Corpuscular Volume 105.4 fL (80.0-98.0); Mean Platelet Volume 11.5 fL (9.4-12.4); Platelet Count 156 X10*3/uL (160-400); Red Blood Count 4.46 X10*6/uL (4.60-5.80); Red Cell Distribution Width 16.3 % (11.0-16.0)
[2024-03-23 08:48] LABS: Anion Gap 17 (12-20); Blood Urea Nitrogen 82 mg/dL (9-16); Calcium 8.5 mg/dL (8.4-10.2); Carbon Dioxide 27 mmol/L (22-29); Chloride 107 mmol/L (96-108); Creatinine Clr Calc Pharmacy 31.5; Estimated Glomerular Filt Rate 34; Glucose Random 129 mg/dL (60-115); Sodium 146 mmol/L (135-145)
--- NOTE | 2024-03-23 09:36 | HO.PM.IMPN ---
Subjective Subjective Date of Service: 03/23/24 Interval History: Has no complaints today Physical Exam Vital Signs: Vital Signs: Last Vital Signs Temp 96.9 F 03/23/24 07:45 Pulse 101 H 03/23/24 08:10 Resp 19 03/23/24 07:45 BP 119/68 03/23/24 08:10 Pulse Ox 96 03/23/24 08:10 O2 Del Method Nasal Cannula 03/23/24 07:45 O2 Flow Rate 3 03/23/24 07:45 BMI result Body Mass Index 30.9 Appears stronger and more alert than the past few days Oriented to person only, poor insight Lungs diminished especially at bases No acute distress 1 to 2+ edema bilateral, worse on left Objective Data Active Medications Acetaminophen (Acetaminophen 325 Mg Tablet) 650 mg PO Q6H PRN PRN Reason: Pain, Mild (Pain Scale 1-3), fever or headache Last Admin: 03/21/24 13:07 Dose: 650 mg Documented By: JASMYNE Apixaban (Apixaban 2.5 Mg Tablet) 2.5 mg PO BID [facility] Last Admin: 03/21/24 08:39 Dose: 2.5 mg Documented By: JASMYNE Aspirin (Aspirin 81 Mg Tab.Chew) 81 mg PO DAILY [facility] Last Admin: 03/22/24 08:54 Dose: 81 mg Documented By: JASMYNE Bisacodyl (Bisacodyl 10 Mg Supp.Rect) 10 mg [place] DAILY PRN PRN Reason: Constipation Calcium Carbonate (Calcium Carbonate 750 Mg Tab.Chew) 750 mg PO Q4H PRN PRN Reason: Heartburn Cephalexin HCl (Cephalexin 500 Mg Capsule) 500 mg PO Q24H [facility] Last Admin: 03/22/24 08:54 Dose: 500 mg Documented By: JASMYNE Fluticasone Propionate (Fluticasone Propionate Nasal 16 Gm [place]) 2 spray NOSTRIL-B DAILY [facility] Last Admin: 03/22/24 08:55 Dose: 2 spray Documented By: JASMYNE Furosemide (Furosemide 40 Mg Tablet) 40 mg PO DAILY [facility]; Protocol Last Admin: 03/22/24 10:20 Dose: 40 mg Documented By: JASMYNE Glucose (Glucose Gel 15 Gm Gel..Gram.) 15 gm PO Q15M PRN; Protocol PRN Reason: per Hypoglycemia Standing Ord. Guaifenesin/Dextromethorphan (Guaifenesin Dm 200/20/10 Ml 10 Ml Syrup) 10 ml PO Q4H PRN PRN Reason: Cough Last Admin: 03/22/24 17:26 Dose: 10 ml Documented By: JASMYNE Dextrose (D10) 250 mls @ 750 mls/hr IV Q15M PRN; Protocol PRN Reason: per Hypoglycemia Standing Ord. Insulin Human Lispro (Insulin Lispro 100 Unit/Ml 3 Ml Vial) 0 unit SUBCUT QIDACHS [facility]; Protocol Last Admin: 03/23/24 07:28 Dose: Not Given Documented By: FERMIN Non-Admin Reason: poc= 117 Magnesium Hydroxide (Milk Of Magnesia 30 Ml Oral.Susp) 30 ml PO DAILY PRN PRN Reason: Constipation Last Admin: 03/21/24 13:07 Dose: 30 ml Documented By: JASMYNE Melatonin (Melatonin 3 Mg Tablet) 6 mg PO BEDTIME PRN PRN Reason: Insomnia Last Admin: 03/21/24 20:38 Dose: 6 mg Documented By: PETER Metoprolol Tartrate (Metoprolol Tartrate 25 Mg Tablet) 25 mg PO BID [facility]; Protocol Last Admin: 03/22/24 22:02 Dose: Not Given Documented By: LOREN Non-Admin Reason: Decreased Blood Pressure Comments: aware Midodrine (Midodrine Hcl 2.5 Mg Tablet) 2.5 mg PO TID [facility] Last Admin: 03/22/24 19:51 Dose: 2.5 mg Documented By: LOREN Ondansetron HCl (Ondansetron Hcl 4 Mg/2 Ml Vial) 4 mg IVPUSH Q8H PRN PRN Reason: Nausea and Vomiting Quetiapine Fumarate (Quetiapine Fumarate 25 Mg Tablet) 12.5 mg PO Q6H PRN PRN Reason: Agitation Last Admin: 03/23/24 02:45 Dose: 12.5 mg Documented By: LOREN Quetiapine Fumarate (Quetiapine Fumarate 25 Mg Tablet) 25 mg PO BEDTIME [facility] Last Admin: 03/22/24 19:52 Dose: 25 mg Documented By: LOREN Sodium Biphosphate/Sodium Phosphate (Sodium Phosphate,[place]-Dibasic 133 Ml Enema) 118 ml [place] DAILY PRN PRN Reason: consitpation Sodium Chloride (0.9 % Sodium Chloride Flush 3 Ml Syringe) 3 ml IVFLUSH QSHIFT [facility] Last Admin: 03/22/24 19:52 Dose: 3 ml Documented By: LOREN Labs 03/23/24 07:41 03/23/24 07:41 Labs: Laboratory Results - last 24 hr 03/22/24 03/22/24 03/22/24 10:57 17:13 20:14 MCV MCH MCHC RDW Plt Count MPV Absolute Nucleated RBC Nucleated RBC % (auto) Anion Gap Estim Creat Clear Calc Estimated GFR POC Glucose 185 H 181 H 152 H Random Glucose Calcium 03/23/24 03/23/24 07:09 07:41 MCV 105.4 H MCH 31.4 MCHC 29.8 L RDW 16.3 H Plt Count 156 L MPV 11.5 Absolute Nucleated RBC 0.000 Nucleated RBC % (auto) 0.0 Anion Gap 17 Estim Creat Clear Calc 31.5 Estimated GFR 34 POC Glucose 117 H Random Glucose 129 H Calcium 8.5 Assessment and Plan (1) Diabetes mellitus, type II: Status: Acute (2) Hypoxia: Status: Acute (3) Acute UTI: Status: Acute (4) Fall: Status: Acute (5) COVID-19: Status: Acute Plan 84M PMH unspecified dementia,?HFrEF, paroxysmal AFib on Eliquis, CAD, and ndk-fzldtsc-jfxfosgdy type 2 diabetes who presented to the ED for evaluation after unwitnessed fall at [facility]. found to be positive for COVID, acute UTI, and CHF exacerbation. Acute hypoxic respiratory failure due to acute on chronic systolic chf with EF 10%, grade 3 diastolic dysfunction, severe now on 2L unclear if measure hypoxia overnight true hypoxia or due to poor peripheral circulation, continue to wean cxr with right pleural effusion, will plan for thoracentesis today hypotension 03/18/24 due to diuretics, cardiomyopathy, not sepsis lasix held for several days, received iv fluids, started on midodrine improved, restarted po lasix maintenance transaminitis abd us with adenomyomatosis of gallbladder, mild steatohepatitis likely cardiogenic vs mild NAFLD LLE swelling doppler negative covid symptomatic management Acute UTI MSSA, keflex day 6 CKD3 with recent jeannette stable, creatinine around 2 Paroxysmal AFib Continue Eliquis (on hold for thoracentesis), metoprolol CAD Continue aspirin Hold statin due to transaminitis Xmq-uathihv-iqpainhts type 2 diabetes sliding scale insulin Diabetic diet unspecified dementia with acute delerium quetiapine, improved Full Code DVT Prophylaxis: restart Eliquis after thoracentesis reason for continued hospitalization: pleural effusion management, hypoxia, awaiting snf bed Quality Stroke Does the patient have a stroke diagnosis?: No VTE Prior VTE?: No VTE Risk Level:: Medical - moderate - high VTE Device Contraindication: Treatment Not Indicated VTE Drug Contraindication: N/A - Med Ordered
[2024-03-23] MEDS: Milk of Magnesia 30 ML ORAL.SUSP PO (09:45)
[2024-03-23] MEDS: Midodrine HCl 2.5 MG TABLET PO ×3 (09:45→22:00)
[2024-03-23] MEDS: Metoprolol Tartrate 25 MG TABLET PO (09:45)
[2024-03-23] MEDS: Acetaminophen 325 MG TABLET 650 MG PO (09:45)
[2024-03-23] MEDS: Aspirin 81 MG TAB.CHEW PO (09:45)
[2024-03-23] MEDS: cephALEXin 500 MG CAPSULE PO (09:45)
[2024-03-23] MEDS: guaiFENesin DM 200/20/10 ML 10 ML SYRUP PO (09:45)
[2024-03-23] MEDS: Furosemide 40 MG TABLET PO (09:45)
[2024-03-23] MEDS: 0.9 % Sodium Chloride Flush 3 ML SYRINGE IVFLUSH ×2 (09:46→16:06)
[2024-03-23] MEDS: Fluticasone Propionate Nasal 16 GM SPRAY 2 SPRAY NOSTRIL-B (09:46)
[2024-03-23 11:13] LABS: Glucose, Whole Blood 181 mg/dL (60-115)
--- NOTE | 2024-03-23 11:19 | MHC.SL.DTX ---
Dysphagia Diet modifications: Last documented Solid diet consistencies: Pureed (NDD1) Last documented Liquid consistency: Thin Changes made to current diet?: Yes Liquid Consistency and Strategies: Liquid Intake Recommendation: [place] Thick Compensatory Strategies for Safe Swallow: No Straws Compensatory Strategies for Safe Swallow(b): Sitting Upright (90 deg) No Straw Liquids from Cup Liquids from Spoon Small Bites and Sips Alternate Liquids/Solids Rate of Ingestion Change Oral Check Solid Food Consistency: Dietary Recommendations: Grnd/Mech Altered (NDD2) Oral Medication Intake: Crushed with Puree Strategies and Precautions to be Taken for Safe Swallow: Sitting Upright (90 deg) No Straw Liquids from Cup Liquids from Spoon Small Bites and Sips Alternate Liquids/Solids Rate of Ingestion Change Oral Check Supervision While Eating and/Drinking: Total Assistance (1:1) Swallowing Recommended Treatments: Compens. Strategy Educat. Level of Impact on: Daily activities: Moderate Education: None Employment: None Community: Moderate Prognosis for Improvement: Good Recommendation for Speech: Frequency/Duration: Daily M-F Treatment: Pt remains on Covid precautions. He is seen with a BOTTOM MAN in the room. He is resting with his eyes open watching television on a soft volume. He remains lethargic but appears more alert than previous presentations. His head of bed is elevated and he verbalized acceptance of PO trials. He tolerated Thin Liquids via administered Ice Chip, Spoon, and Cup Sip with no overt s/s of aspiration. He was able to lift a cup to his mouth with encouragement and no overt s/s of aspiration. Pt was administered Thin Liquids via Straw however resulting in prolonged coughing episode and change to wet/gurgled vocal quality. After given time to catch his breath, he tolerated spoon bites of nectar-thick liquids administered to him. He tolerated Puree and Ground/Altered Solids with prolonged mastication time for Ground > Puree. He was able to clear his oral cavity with administration of Ice Chip and [place]-Thick Liquids. ARRANGING FUNERAL DIRECTOR recommending diet change to Ground/Mech Altered Solids (NDD2) and [place]-Thick Liquids. Meds Whole or Crushed with Puree, as tolerated. Pt will require 1:1 assistance due to continued lethargy. He can be encouraged to self-feed under close supervision, as tolerated. No Straws. ARRANGING FUNERAL DIRECTOR will continue to follow after the Holiday. Direct Service Worker Clinican/Clinical Fellow: No Supervisory Statement: I have reviewed and agree with the student/clinical fellow's documentation: N/A Speech Language Pathologist: Greg Lea M.A., CCC-ARRANGING FUNERAL DIRECTOR
[2024-03-23] MEDS: Insulin Lispro 100 UNIT/ML 3 ML VIAL SUBCUT ×2 (11:26→22:00)
--- NOTE | 2024-03-23 13:58 | MHC.CM.PN ---
EMR REVIEWED, PT W/BILAT PLEAURAL EFFUSIONS, PLAN FOR THORACENTESIS TODAY, NO PLAN FOR DC, CM WILL CONT TO FOLLOW DC NEEDS.
[2024-03-23] MEDS: Lidocaine HCl 1 % MPF 5 ML VIAL SUBCUT (15:54)
[2024-03-23 16:20] LABS: Glucose, Whole Blood 129 mg/dL (60-115)
[2024-03-23 16:53] LABS: MN% 97.2 %; PMN% 2.8 %; RBC Pleural Fluid 0.004 X10*6/uL; WBC Pleural Fluid 0.284 X10*3/uL
[2024-03-23 17:00] LABS: BF Shift QC OK YES; Lymphocytes Pleural Fluid 12 %; Monocytes Pleural Fluid 6 %; Other Cells Plerual Fl 82 %
[2024-03-23 21:05] LABS: Glucose, Whole Blood 200 mg/dL (60-115)
[2024-03-23] MEDS: QUEtiapine Fumarate 25 MG TABLET PO (22:00)
[2024-03-24] VITALS (8 sets, daily range): BP systolic 91–102; BP diastolic 55–78; PULSE 88–108; RESP 16–20; TEMP 36.2–37; O2SAT 92–98
[2024-03-24 07:32] LABS: Glucose, Whole Blood 139 mg/dL (60-115)
[2024-03-24 08:13] LABS: Hematocrit 44.7 % (42.0-52.0); Hemoglobin 13.6 g/dl (14.0-18.0); Mean Corpuscular HGB Conc 30.4 g/dl (31.0-36.0); Mean Corpuscular Hemoglobin 31.5 pg (27.0-33.0); Mean Corpuscular Volume 103.5 fL (80.0-98.0); Mean Platelet Volume 10.7 fL (9.4-12.4); Platelet Count 151 X10*3/uL (160-400); Red Blood Count 4.32 X10*6/uL (4.60-5.80); Red Cell Distribution Width 16.1 % (11.0-16.0); White Blood Count 7.3 X10*3/uL (4.8-10.8)
[2024-03-24 08:42] LABS: Albumin Level 3.1 g/dL (3.5-5.0); Anion Gap 14 (12-20); Aspartate Amino Transferase 28 U/L (5-37); Bilirubin Direct 0.7 mg/dL (0.0-0.5); Bilirubin Total 1.1 mg/dL (0.0-1.0); Blood Urea Nitrogen 82 mg/dL (9-16); Calcium 8.6 mg/dL (8.4-10.2); Carbon Dioxide 33 mmol/L (22-29); Chloride 107 mmol/L (96-108); Creatinine Clr Calc Pharmacy 37.4; Estimated Glomerular Filt Rate 41; Glucose Random 162 mg/dL (60-115); Magnesium 2.5 mg/dL (1.6-2.6); Potassium 4.6 mmol/L (3.3-5.1); Sodium 149 mmol/L (135-145); Total Protein 5.9 g/dL (6.5-8.0)
[2024-03-24 08:49] LABS: Alanine Aminotransferase 37 U/L (0-40); Alkaline Phosphatase 144 U/L (39-117)
[2024-03-24] MEDS: Metoprolol Tartrate 25 MG TABLET PO (10:18)
[2024-03-24] MEDS: cephALEXin 500 MG CAPSULE PO (10:18)
[2024-03-24] MEDS: Aspirin 81 MG TAB.CHEW PO (10:21)
[2024-03-24] MEDS: Apixaban 2.5 MG TABLET PO ×2 (10:22→20:39)
[2024-03-24] MEDS: Furosemide 40 MG TABLET PO (10:22)
[2024-03-24] MEDS: Midodrine HCl 5 MG TABLET PO (10:22)
[2024-03-24] MEDS: Morphine Sulfate 2 MG/ML CARTRIDGE IVPUSH (10:23)
[2024-03-24] MEDS: 0.9 % Sodium Chloride Flush 3 ML SYRINGE IVFLUSH ×2 (10:23→22:26)
[2024-03-24] MEDS: Fluticasone Propionate Nasal 16 GM SPRAY 2 SPRAY NOSTRIL-B (10:28)
[2024-03-24 11:00] LABS: Glucose, Whole Blood 204 mg/dL (60-115)
[2024-03-24] MEDS: LORazepam 2 MG/ML VIAL 0.5 MG IVPUSH (11:57)
[2024-03-24] MEDS: Insulin Lispro 100 UNIT/ML 3 ML VIAL SUBCUT ×3 (12:03→21:46)
--- NOTE | 2024-03-24 12:45 | P.PNIM_ITS ---
Subjective Subjective Date of Service: 03/24/24 Interval History: seen and evaluated this morning not eating much looks more altered and deconditioned reports of sundowning removing tele and O2 and becoming restless Son at the bedside Review of Systems Review of Systems: Yes Unobtainable due to mental status Physical Exam 2 Vital Signs: Vital Signs: Last Vital Signs Temp 97.9 F 03/24/24 11:22 Pulse 88 03/24/24 11:22 Resp 20 03/24/24 11:22 BP 102/59 L 03/24/24 11:22 Pulse Ox 97 03/24/24 11:22 O2 Del Method Nasal Cannula 03/24/24 11:22 O2 Flow Rate 3 03/24/24 11:22 BMI result Body Mass Index 30.9 Const: Other: Constitutional : alert, frail, ill looking, interactive if stimulated, On O2 Cardiovascular : no JVP, +1 bilateral lower extremity edema Respiratory : bilateral chest movement, not in resp distress Gastrointestinal: soft, lax, Non tender Skin : Warm, Dry Neurological : Alert & disorientedx3, No focal deficit Objective Data Active Medications Acetaminophen (Acetaminophen 325 Mg Tablet) 650 mg PO Q6H PRN PRN Reason: Pain, Mild (Pain Scale 1-3), fever or headache Last Admin: 03/23/24 09:45 Dose: 650 mg Documented By: FERMIN Apixaban (Apixaban 2.5 Mg Tablet) 2.5 mg PO BID [facility] Last Admin: 03/24/24 10:22 Dose: 2.5 mg Documented By: LEIGHA Aspirin (Aspirin 81 Mg Tab.Chew) 81 mg PO DAILY [facility] Last Admin: 03/24/24 10:21 Dose: 81 mg Documented By: LEIGHA Bisacodyl (Bisacodyl 10 Mg Supp.Rect) 10 mg [place] DAILY PRN PRN Reason: Constipation Calcium Carbonate (Calcium Carbonate 750 Mg Tab.Chew) 750 mg PO Q4H PRN PRN Reason: Heartburn Cephalexin HCl (Cephalexin 500 Mg Capsule) 500 mg PO Q24H [facility] Last Admin: 03/24/24 10:18 Dose: 500 mg Documented By: LEIGHA Fluticasone Propionate (Fluticasone Propionate Nasal 16 Gm [place]) 2 spray NOSTRIL-B DAILY [facility] Last Admin: 03/24/24 10:28 Dose: 2 spray Documented By: LEIGHA Furosemide (Furosemide 40 Mg Tablet) 40 mg PO DAILY [facility]; Protocol Last Admin: 03/24/24 10:22 Dose: 40 mg Documented By: LEIGHA Glucose (Glucose Gel 15 Gm Gel..Gram.) 15 gm PO Q15M PRN; Protocol PRN Reason: per Hypoglycemia Standing Ord. Guaifenesin/Dextromethorphan (Guaifenesin Dm 200/20/10 Ml 10 Ml Syrup) 10 ml PO Q4H PRN PRN Reason: Cough Last Admin: 03/23/24 09:45 Dose: 10 ml Documented By: FERMIN Dextrose (D10) 250 mls @ 750 mls/hr IV Q15M PRN; Protocol PRN Reason: per Hypoglycemia Standing Ord. Insulin Human Lispro (Insulin Lispro 100 Unit/Ml 3 Ml Vial) 0 unit SUBCUT QIDACHS [facility]; Protocol Last Admin: 03/24/24 12:03 Dose: 4 unit Documented By: LEIGHA Lorazepam (Lorazepam 2 Mg/Ml Vial) 0.5 mg IVPUSH Q4H PRN PRN Reason: anxiety/restlessness Last Admin: 03/24/24 11:57 Dose: 0.5 mg Documented By: LEIGHA Magnesium Hydroxide (Milk Of Magnesia 30 Ml Oral.Susp) 30 ml PO DAILY PRN PRN Reason: Constipation Last Admin: 03/23/24 09:45 Dose: 30 ml Documented By: FERMIN Melatonin (Melatonin 3 Mg Tablet) 6 mg PO BEDTIME PRN PRN Reason: Insomnia Last Admin: 03/21/24 20:38 Dose: 6 mg Documented By: PETER Metoprolol Tartrate (Metoprolol Tartrate 25 Mg Tablet) 25 mg PO BID [facility]; Protocol Last Admin: 03/24/24 10:18 Dose: 25 mg Documented By: LEIGHA Midodrine (Midodrine Hcl 5 Mg Tablet) 5 mg PO TID@0900,1300,1700 [facility] Last Admin: 03/24/24 10:22 Dose: 5 mg Documented By: LEIGHA Morphine Sulfate (Morphine Sulfate 2 Mg/Ml Cartridge) 2 mg IVPUSH Q3H PRN; Protocol PRN Reason: Pain, Moderate(Pain Scale 4-6) Last Admin: 03/24/24 10:23 Dose: 2 mg Documented By: LEIGHA Ondansetron HCl (Ondansetron Hcl 4 Mg/2 Ml Vial) 4 mg IVPUSH Q8H PRN PRN Reason: Nausea and Vomiting Quetiapine Fumarate (Quetiapine Fumarate 25 Mg Tablet) 12.5 mg PO Q6H PRN PRN Reason: Agitation Last Admin: 03/23/24 02:45 Dose: 12.5 mg Documented By: LOREN Quetiapine Fumarate (Quetiapine Fumarate 25 Mg Tablet) 25 mg PO BEDTIME [facility] Last Admin: 03/23/24 22:00 Dose: 25 mg Documented By: NAHOMI Sodium Biphosphate/Sodium Phosphate (Sodium Phosphate,[place]-Dibasic 133 Ml Enema) 118 ml [place] DAILY PRN PRN Reason: consitpation Sodium Chloride (0.9 % Sodium Chloride Flush 3 Ml Syringe) 3 ml IVFLUSH QSHIFT [facility] Last Admin: 03/24/24 10:23 Dose: 3 ml Documented By: LEIGHA Labs 03/24/24 07:55 03/24/24 07:55 Labs: Laboratory Results - last 24 hr 03/23/24 03/23/24 03/23/24 15:43 16:01 21:00 MCV MCH MCHC RDW Plt Count MPV Absolute Nucleated RBC Nucleated RBC % (auto) Anion Gap Estim Creat Clear Calc Estimated GFR POC Glucose 129 H 200 H Random Glucose Calcium Magnesium Total Bilirubin Direct Bilirubin AST ALT Alkaline Phosphatase Total Protein Albumin Pleural WBC 0.284 Pleural RBC 0.004 Pleural Lymphocytes 12 Pleural Monocytes 6 Pleural Other Cells 82 03/24/24 03/24/24 03/24/24 07:22 07:55 10:56 MCV 103.5 H MCH 31.5 MCHC 30.4 L RDW 16.1 H Plt Count 151 L MPV 10.7 Absolute Nucleated RBC 0.000 Nucleated RBC % (auto) 0.0 Anion Gap 14 Estim Creat Clear Calc 37.4 Estimated GFR 41 POC Glucose 139 H 204 H Random Glucose 162 H Calcium 8.6 Magnesium 2.5 Total Bilirubin 1.1 H Direct Bilirubin 0.7 H AST 28 ALT 37 Alkaline Phosphatase 144 H Total Protein 5.9 L Albumin 3.1 L Pleural WBC Pleural RBC Pleural Lymphocytes Pleural Monocytes Pleural Other Cells Microbiology Microbiology Results: Microbiology 03/23/24 15:43 Gram Stain - Final Thoracentesis Fluid Anaerobic Culture - Preliminary No growth to date. Body Fluid Culture - Preliminary No growth to date. Assessment and Plan (1) Hypoxia: Status: Acute (2) Acute UTI: Status: Acute (3) Fall: Status: Acute (4) Acute hypernatremia: Status: Acute Plan 84M PMH unspecified dementia,?HFrEF, paroxysmal AFib on Eliquis, CAD, and suk-euykkfb-yltvplezw type 2 diabetes who presented to the ED for evaluation after unwitnessed fall at [facility]. found to be positive for COVID, acute UTI, and CHF exacerbation. Acute hypoxic respiratory failure due to acute on chronic systolic chf with EF 10%, grade 3 diastolic dysfunction, severe now on 3-4L, drops to 80s if lowered cxr showed right pleural effusion, had Rt thoracentesis 03/23 Acute hypernatremia secondary to decrease PO intake Start D5W follow BMP hold Lasix Frailty secondary to prolonged hospital stay and advanced CHF PT rec STR if he agrees to follow cues hypotension, improved due to diuretics, cardiomyopathy, not sepsis started on midodrine restarted po lasix maintenance (hold for hyperNa) monitor BP transaminitis abd us with adenomyomatosis of gallbladder, mild steatohepatitis likely cardiogenic vs mild NAFLD resolved LLE swelling doppler negative covid symptomatic management Acute UTI MSSA, keflex day 7, to dc after 10-14 days (given mathew in place) CKD3 with recent jeannette stable, creatinine around 2 Paroxysmal AFib Continue Eliquis continue metoprolol CAD Continue aspirin Hold statin due to transaminitis Kzo-ebczvbo-spvmywqbr type 2 diabetes sliding scale insulin Diabetic diet unspecified dementia with acute delerium quetiapine, improved Full Code DVT Prophylaxis: restart Eliquis after thoracentesis reason for continued hospitalization: pleural effusion management, hypoxia, awaiting snf bed Quality Stroke Does the patient have a stroke diagnosis?: No VTE Prior VTE?: No VTE Risk Level:: Medical - moderate - high VTE Device Contraindication: Treatment Not Indicated VTE Drug Contraindication: N/A - Med Ordered
[2024-03-24] MEDS: Dextrose 5 % 1,000 ML 125 ML IVCONT (14:38)
--- NOTE | 2024-03-24 16:00 | PC.NURSE ---
Patient's daughter asked to add patient's son Kwaku's phone number as primary contact [phone] and Kwaku's Chastity as secondary contact [phone]
[2024-03-24 16:22] LABS: Glucose, Whole Blood 188 mg/dL (60-115)
[2024-03-24 18:38] LABS: Anion Gap 13 (12-20); Blood Urea Nitrogen 81 mg/dL (9-16); Calcium 8.3 mg/dL (8.4-10.2); Carbon Dioxide 32 mmol/L (22-29); Chloride 108 mmol/L (96-108); Creatinine Clr Calc Pharmacy 39.3; Estimated Glomerular Filt Rate 43; Glucose Random 244 mg/dL (60-115); Potassium 4.5 mmol/L (3.3-5.1); Sodium 148 mmol/L (135-145)
--- NOTE | 2024-03-24 19:14 | PC.NURSE ---
Patient confused, did not want to answer questions, alert but not oriented, very restless in the morning, taking nasal cannula off, O2 sats dropping to low 80s on RA, pulling off heart monitor, trying to get out of bed. Patient did not endorse pain but family requested pain medications stating patient will not likely admitt to pain. Order for 2mg Morphine IV push received and administered. Patient still restless and did received 0.5mg of lorazepam. Patient slept most of the day after getting the PRN medication. Patient refused lunch tray and was too sleepy to eat dinner. Also did not take his afternoon scheduled medication.
[2024-03-24] MEDS: QUEtiapine Fumarate 25 MG TABLET PO (20:39)
[2024-03-24 21:28] LABS: Glucose, Whole Blood 196 mg/dL (60-115)
[2024-03-25] VITALS (8 sets, daily range): BP systolic 91–106; BP diastolic 48–72; PULSE 75–112; RESP 16–20; TEMP 36.2–36.8; O2SAT 95–98
[2024-03-25] MEDS: Midodrine HCl 10 MG TABLET PO (01:31)
[2024-03-25] MEDS: Metoprolol Tartrate 25 MG TABLET PO (04:10)
[2024-03-25 07:31] LABS: Glucose, Whole Blood 189 mg/dL (60-115)
[2024-03-25 08:09] LABS: Total Protein Pleural Fluid 1.5
[2024-03-25 08:10] LABS: LDH Pleural Fluid 63
[2024-03-25] MEDS: Acetaminophen 325 MG TABLET 650 MG PO (08:10)
[2024-03-25] MEDS: Apixaban 2.5 MG TABLET PO (08:11)
[2024-03-25] MEDS: Midodrine HCl 5 MG TABLET PO (08:11)
[2024-03-25] MEDS: 0.9 % Sodium Chloride Flush 3 ML SYRINGE IVFLUSH (08:11)
[2024-03-25] MEDS: Aspirin 81 MG TAB.CHEW PO (08:11)
[2024-03-25] MEDS: cephALEXin 500 MG CAPSULE PO (08:11)
[2024-03-25] MEDS: Insulin Lispro 100 UNIT/ML 3 ML VIAL SUBCUT (08:11)
--- NOTE | 2024-03-25 11:01 | P.PNIM_ITS ---
Subjective Subjective Date of Service: 03/25/24 Interval History: Pt continues to do poorly, not eating much, constant agitation, and desaturation with little movment Review of Systems Review of Systems: Yes Unobtainable due to mental status Physical Exam 2 Vital Signs: Vital Signs: Last Vital Signs Temp 98.2 F 03/25/24 07:32 Pulse 95 03/25/24 07:32 Resp 20 03/25/24 07:32 BP 100/60 03/25/24 10:26 Pulse Ox 98 03/25/24 09:24 O2 Del Method Nasal Cannula 03/25/24 07:32 O2 Flow Rate 2 03/25/24 07:38 BMI result Body Mass Index 30.9 Const: Other: Constitutional : alert, frail, ill looking, interactive if stimulated, On O2 Cardiovascular : no JVP, +1 bilateral lower extremity edema Respiratory : bilateral chest movement, not in resp distress Gastrointestinal: soft, lax, Non tender Skin : Warm, Dry Neurological : Alert & disorientedx3, No focal deficit Objective Data Active Medications Acetaminophen (Acetaminophen 325 Mg Tablet) 650 mg PO Q4H PRN PRN Reason: Fever >/= 100, Pain, mild 1-3 Docusate Sodium (Docusate Sodium 100 Mg Capsule) 100 mg PO BEDTIME [facility] Haloperidol Lactate (Haloperidol Lactate 5 Mg/Ml Vial) 0.5 mg IVPUSH Q4H PRN PRN Reason: Delirium Lorazepam (Lorazepam 2 Mg/Ml Vial) 0.5 mg IVPUSH Q4H PRN PRN Reason: Myoclonic twitching/anxiety Morphine Sulfate (Morphine Sulfate 2 Mg/Ml Cartridge) 2 mg IVPUSH Q1H PRN; Protocol PRN Reason: Pain, Moderate(Pain Scale 4-6) Ondansetron HCl (Ondansetron Odt 4 Mg Tab.Rapdis) 4 mg TRANSLINGU Q8H PRN PRN Reason: Nausea and Vomiting Scopolamine (Scopolamine 1.5 Mg Patch.Td.3) 1.5 mg TRANSDERMA Q72H [facility] Labs 03/24/24 07:55 03/24/24 18:08 Labs: Laboratory Results - last 24 hr 03/23/24 03/24/24 03/24/24 15:43 10:56 16:15 Hold Purple Top Anion Gap Estim Creat Clear Calc Estimated GFR POC Glucose 204 H 188 H Random Glucose Calcium Pleural Total Protein 1.5 Pleural LDH 63 03/24/24 03/24/24 03/24/24 18:08 18:21 21:23 Hold Purple Top SEE NOTE Anion Gap 13 Estim Creat Clear Calc 39.3 Estimated GFR 43 POC Glucose 196 H Random Glucose 244 H Calcium 8.3 L Pleural Total Protein Pleural LDH 03/25/24 07:27 Hold Purple Top Anion Gap Estim Creat Clear Calc Estimated GFR POC Glucose 189 H Random Glucose Calcium Pleural Total Protein Pleural LDH Microbiology Microbiology Results: Microbiology 03/23/24 15:43 Gram Stain - Final Thoracentesis Fluid Anaerobic Culture - Preliminary No growth to date. Body Fluid Culture - Preliminary No growth to date. Assessment and Plan (1) Hypoxia: Status: Acute (2) Acute UTI: Status: Acute (3) Fall: Status: Acute (4) Acute hypernatremia: Status: Acute Plan An 84-year-old male with a past medical history of unspecified dementia, HFrEF, paroxysmal AFib on Eliquis, CAD, and twk-ovyrrio-zblteyice type 2 diabetes presented to the ED after an unwitnessed fall at [facility]. He was found to have COVID-19, an acute UTI, and a CHF exacerbation, all occurring in the context of CKD and AFib. Despite aggressive management and addressing all identified issues, the patient has made minimal progress. He remains frail, with poor oral intake, persistent hypoxia, Hypernateremia, and worsening confusion and delirium. Based on his lack of improvement and poor prognosis, the likelihood of meaningful recovery and quality of life is deemed low. After extensive discussions with the patient?s children (two sons Miryam and Stacey, and a daughter) regarding the prognosis and care options, they have collectively decided to transition care to comfort measures only. This plan includes DNR/DNI status, no further diagnostic testing, and a focus on providing comfort. Morning Ativan will be administered for symptom relief as needed. The family has also indicated they will not be able to provide hospice care at home. Quality Stroke Does the patient have a stroke diagnosis?: No VTE Prior VTE?: No VTE Risk Level:: Medical - moderate - high VTE Device Contraindication: Treatment Not Indicated VTE Drug Contraindication: N/A - Med Ordered
[2024-03-25 11:18] LABS: Glucose, Whole Blood 170 mg/dL (60-115)
[2024-03-25] MEDS: LORazepam 2 MG/ML VIAL 0.5 MG IVPUSH ×2 (11:45→23:34)
--- NOTE | 2024-03-25 15:05 | MHC.CM.PN ---
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 TO CUSTOMER SERVICE IN BUILDING 1 IN BASEMENT TO GET PT REGISTERED. TRICIA REPORTS HE WILL TAKE DOCUMENTS TO [facility] TOMORROW 03/26. LEIGH ANN CERNA SKILLED FOLLOWING AND IS FAMILIES PREFERRED SNF.
[2024-03-25 15:15] LABS: Glucose, Whole Blood 161 mg/dL (60-115)
[2024-03-25] MEDS: Scopolamine 1.5 MG PATCH.TD.3 TRANSDERMA (16:59)
[2024-03-26] VITALS: TEMP 36.9; O2SAT 98
[2024-03-26 07:28] VITALS: RESP 18; TEMP 36.9
[2024-03-26 12:00] VITALS: RESP 15
[2024-03-26 16:00] VITALS: TEMP 36.4; O2SAT 96
--- NOTE | 2024-03-26 17:31 | HO.PM.IMPN ---
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 Physical Exam Vital Signs: Vital Signs: Last Vital Signs Temp 97.5 F 03/26/24 16:00 Pulse 95 03/25/24 15:30 Resp 15 03/26/24 12:00 BP 106/54 L 03/25/24 15:30 Pulse Ox 96 03/26/24 16:00 O2 Del Method Nasal Cannula 03/26/24 16:00 O2 Flow Rate 3 03/26/24 16:00 BMI result Body Mass Index 30.9 appears comfortable Objective Data Active Medications Acetaminophen (Acetaminophen 325 Mg Tablet) 650 mg PO Q4H PRN PRN Reason: Fever >/= 100, Pain, mild 1-3 Docusate Sodium (Docusate Sodium 100 Mg Capsule) 100 mg PO BEDTIME [facility] Last Admin: 03/25/24 21:53 Dose: Not Given Documented By: CAMILLE Non-Admin Reason: Patient Refused Haloperidol Lactate (Haloperidol Lactate 5 Mg/Ml Vial) 0.5 mg IVPUSH Q4H PRN PRN Reason: Delirium Lorazepam (Lorazepam 2 Mg/Ml Vial) 0.5 mg IVPUSH Q4H PRN PRN Reason: Myoclonic twitching/anxiety Last Admin: 03/25/24 23:34 Dose: 0.5 mg Documented By: CAMILLE Morphine Sulfate (Morphine Sulfate 2 Mg/Ml Cartridge) 2 mg IVPUSH Q1H PRN; Protocol PRN Reason: Pain, Moderate(Pain Scale 4-6) Ondansetron HCl (Ondansetron Odt 4 Mg Tab.Rapdis) 4 mg TRANSLINGU Q8H PRN PRN Reason: Nausea and Vomiting Scopolamine (Scopolamine 1.5 Mg Patch.Td.3) 1.5 mg TRANSDERMA Q72H [facility] Last Admin: 03/25/24 16:59 Dose: 1.5 mg Documented By: SHANELMAT Labs 03/24/24 07:55 03/24/24 18:08 Microbiology Microbiology Results: Microbiology 03/23/24 15:43 Gram Stain - Final Thoracentesis Fluid Anaerobic Culture - Preliminary No growth to date. Body Fluid Culture - Final No growth after 2 days Assessment and Plan (1) Hypoxia: Status: Acute (2) COVID-19: Status: Acute Plan 84-year-old male with a past medical history of unspecified dementia, HFrEF, paroxysmal AFib on Eliquis, CAD, and aic-emknmus-qnnzforst type 2 diabetes presented to the ED after an unwitnessed fall at [facility]. He was found to have COVID-19, an acute UTI, and a CHF exacerbation, all occurring in the context of CKD and AFib. Despite aggressive management and addressing all identified issues, the patient has made minimal progress. He remains frail, with poor oral intake, persistent hypoxia, Hypernateremia, and worsening confusion and delirium. Based on his lack of improvement and poor prognosis, the likelihood of meaningful recovery and quality of life is deemed low. family decided for comfort measures only. Quality Stroke Does the patient have a stroke diagnosis?: No VTE Prior VTE?: No VTE Risk Level:: Medical - moderate - high VTE Device Contraindication: Treatment Not Indicated VTE Drug Contraindication: N/A - Med Ordered
[2024-03-26 20:00] VITALS: TEMP 37.2
[2024-03-26 23:34] VITALS: BP 98/63; PULSE 120; RESP 20; TEMP 36.9; O2SAT 94
[2024-03-27 03:47] VITALS: PULSE 118; RESP 20; TEMP 36.8; O2SAT 93
[2024-03-27] MEDS: Morphine Sulfate 2 MG/ML CARTRIDGE IVPUSH ×2 (11:40→16:12)
--- NOTE | 2024-03-27 14:28 | HO.PM.IMPN ---
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 Objective Data Active Medications Acetaminophen (Acetaminophen 325 Mg Tablet) 650 mg PO Q4H PRN PRN Reason: Fever >/= 100, Pain, mild 1-3 Docusate Sodium (Docusate Sodium 100 Mg Capsule) 100 mg PO BEDTIME [facility] Last Admin: 03/26/24 21:08 Dose: Not Given Documented By: ANGIE Non-Admin Reason: Patient Refused Haloperidol Lactate (Haloperidol Lactate 5 Mg/Ml Vial) 0.5 mg IVPUSH Q4H PRN PRN Reason: Delirium Lorazepam (Lorazepam 2 Mg/Ml Vial) 0.5 mg IVPUSH Q4H PRN PRN Reason: Myoclonic twitching/anxiety Last Admin: 03/25/24 23:34 Dose: 0.5 mg Documented By: CAMILLE Morphine Sulfate (Morphine Sulfate 2 Mg/Ml Cartridge) 2 mg IVPUSH Q1H PRN; Protocol PRN Reason: Pain, Moderate(Pain Scale 4-6) Last Admin: 03/27/24 11:40 Dose: 2 mg Documented By: JONATHON Ondansetron HCl (Ondansetron Odt 4 Mg Tab.Rapdis) 4 mg TRANSLINGU Q8H PRN PRN Reason: Nausea and Vomiting Scopolamine (Scopolamine 1.5 Mg Patch.Td.3) 1.5 mg TRANSDERMA Q72H [facility] Last Admin: 03/25/24 16:59 Dose: 1.5 mg Documented By: SHANELMAManda Labs 03/24/24 07:55 03/24/24 18:08 Microbiology Microbiology Results: Microbiology 03/23/24 15:43 Gram Stain - Final Thoracentesis Fluid Anaerobic Culture - Preliminary No growth to date. Body Fluid Culture - Final No growth after 2 days Assessment and Plan (1) Hypoxia: Status: Acute (2) COVID-19: Status: Acute Plan 84-year-old male with a past medical history of unspecified dementia, HFrEF, paroxysmal AFib on Eliquis, CAD, and mtv-btchcbs-upcirhcrq type 2 diabetes presented to the ED after an unwitnessed fall at [facility]. He was found to have COVID-19, an acute UTI, and a CHF exacerbation, all occurring in the context of CKD and AFib. Despite aggressive management and addressing all identified issues, the patient has made minimal progress. He remains frail, with poor oral intake, persistent hypoxia, Hypernateremia, and worsening confusion and delirium. Based on his lack of improvement and poor prognosis, the likelihood of meaningful recovery and quality of life is deemed low. family decided for comfort measures only. Quality Stroke Does the patient have a stroke diagnosis?: No VTE Prior VTE?: No VTE Risk Level:: Medical - moderate - high VTE Device Contraindication: Treatment Not Indicated VTE Drug Contraindication: N/A - Med Ordered
[2024-03-27] MEDS: LORazepam 2 MG/ML VIAL 0.5 MG IVPUSH (20:58)
[2024-03-28] MEDS: LORazepam 2 MG/ML VIAL 0.5 MG IVPUSH ×2 (06:39→10:45)
--- NOTE | 2024-03-28 06:43 | PC.NURSE ---
Patient restless, quiet moaning and pulling O2 off. Ativan given for restlessness, comfort
[2024-03-28 08:20] VITALS: BP 93/71; PULSE 123; RESP 20; TEMP 36.2; O2SAT 95
[2024-03-28] MEDS: Morphine Sulfate 2 MG/ML CARTRIDGE IVPUSH ×5 (09:37→18:40)
[2024-03-28] MEDS: Scopolamine 1.5 MG PATCH.TD.3 TRANSDERMA (10:46)
--- NOTE | 2024-03-28 10:58 | PC.NURSE ---
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 pt desat to 86% at the time, was able to put on his L side w recovery of 100% on RA. 1mg IV ativan given per MD verbal order at bedside. pt was tranferred to ICU.
--- NOTE | 2024-03-28 13:32 | P.PNIM_ITS ---
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 Physical Exam 2 Vital Signs: Vital Signs: Last Vital Signs Temp 97.2 F 03/28/24 08:20 Pulse 123 H 03/28/24 08:20 Resp 20 03/28/24 08:20 BP 93/71 03/28/24 08:20 Pulse Ox 95 03/28/24 08:20 O2 Del Method Room Air 03/28/24 08:20 O2 Flow Rate 3 03/26/24 23:34 BMI result Body Mass Index 30.9 seems comfortable. Objective Data Active Medications Acetaminophen (Acetaminophen 325 Mg Tablet) 650 mg PO Q4H PRN PRN Reason: Fever >/= 100, Pain, mild 1-3 Docusate Sodium (Docusate Sodium 100 Mg Capsule) 100 mg PO BEDTIME [facility] Last Admin: 03/27/24 20:37 Dose: Not Given Documented By: LOREN Non-Admin Reason: Patient Refused Haloperidol Lactate (Haloperidol Lactate 5 Mg/Ml Vial) 0.5 mg IVPUSH Q4H PRN PRN Reason: Delirium Lorazepam (Lorazepam 2 Mg/Ml Vial) 0.5 mg IVPUSH Q4H PRN PRN Reason: Myoclonic twitching/anxiety Last Admin: 03/28/24 10:45 Dose: 0.5 mg Documented By: JOSE Morphine Sulfate (Morphine Sulfate 2 Mg/Ml Cartridge) 2 mg IVPUSH Q1H PRN; Protocol PRN Reason: Pain, Moderate(Pain Scale 4-6) Last Admin: 03/28/24 12:13 Dose: 2 mg Documented By: JOSE Ondansetron HCl (Ondansetron Odt 4 Mg Tab.Rapdis) 4 mg TRANSLINGU Q8H PRN PRN Reason: Nausea and Vomiting Scopolamine (Scopolamine 1.5 Mg Patch.Td.3) 1.5 mg TRANSDERMA Q72H [facility] Last Admin: 03/28/24 10:46 Dose: 1.5 mg Documented By: JOSE Labs 03/24/24 07:55 03/24/24 18:08 Microbiology Microbiology Results: Microbiology 03/23/24 15:43 Gram Stain - Final Thoracentesis Fluid Anaerobic Culture - Preliminary No growth to date. Body Fluid Culture - Final No growth after 2 days Assessment and Plan (1) Hypoxia: Status: Acute (2) COVID-19: Status: Acute Plan 84-year-old male with a past medical history of unspecified dementia, HFrEF, paroxysmal AFib on Eliquis, CAD, and dua-yczwehs-ehvxmqixo type 2 diabetes presented to the ED after an unwitnessed fall at [facility]. He was found to have COVID-19, an acute UTI, and a CHF exacerbation, all occurring in the context of CKD and AFib. Despite aggressive management and addressing all identified issues, the patient has made minimal progress. He remains frail, with poor oral intake, persistent hypoxia, Hypernateremia, and worsening confusion and delirium. Based on his lack of improvement and poor prognosis, the likelihood of meaningful recovery and quality of life is deemed low. family decided for comfort measures only. Quality Stroke Does the patient have a stroke diagnosis?: No VTE Prior VTE?: No VTE Risk Level:: Medical - moderate - high VTE Device Contraindication: Treatment Not Indicated VTE Drug Contraindication: N/A - Med Ordered
[2024-03-28 20:21] VITALS: RESP 30
--- NOTE | 2024-03-28 22:50 | PM.EVENT ---
Event Note Date of Service: 03/28/24 Event Note: I was called to patient's bedside to pronounce the patient. No spontaneous movements were present. There was no response to verbal or tactile stimulus. Pupils were mid dilated and fixed. No breath sounds were appreciated over either lung field. No carotid pulses were palpable. No heart sounds were auscultated over entire precordium. Patient was on comfort measures only. Patient pronounced on 03/28/2024 at 22:15. Condolences offered to daughter present at bedside. certificate completed. Time Spent With Patient Time: Total time managing care of this patient today ____ minutes.
--- NOTE | 2024-03-29 07:16 | P.DN_ITS ---
Discharge Sum: Prov Provider Primary care physician: Gabriele Carroll MD Admitting clinician: Napoleon Bonner Attending physician on admission: Napoleon Bonner Pronouncing clinician: Eulogio Madrigal Discharge Sum: Diag Contributing Factors (1) Hypoxia: (2) COVID-19: Discharge Sum: Summary Date and Time Date of admission: 03/14/24 14:20 Summary Details: 84-year-old male with a past medical history of unspecified dementia, HFrEF, paroxysmal AFib on Eliquis, CAD, and pqm-vvtzthl-sfqvfkwci type 2 diabetes presented to the ED after an unwitnessed fall at [facility] [place]. He was found to have COVID-19, an acute UTI, and a CHF exacerbation, all occurring in the context of CKD and AFib. Despite aggressive management and addressing all identified issues, the patient has made minimal progress. He remains frail, with poor oral intake, persistent hypoxia, Hypernateremia, and worsening confusion and delirium. Based on his lack of improvement and poor prognosis, the likelih ood of meaningful recovery and quality of life is deemed low.Patient family decided to transition care to comfort measures only. This plan includes DNR/DNI status, no further diagnostic testing, and a focus on providing comfort. The family has also indicated they will not be able to provide hospice care at home. Patient pronounced on 03/28/2024 at 22:15 pm and family aware( please see night hospitalist note from 03/28/24). Additional Data Attending physician: Napoleon Bonner MD
== END 2024-03-28 22:15 | disposition expired | DRG 177 ==
LOC: HO.ED 08:26 → HO.EDOVER 14:21 → HO.IMC 21:13
PROVIDERS: Emergency Medicine; Internal Medicine; Student in an Organized Health Care Education/Training Program; Admitting Provider Student in an Organized Health Care Education/Training Program; Emergency Provider Emergency Medicine; PCP Student in an Organized Health Care Education/Training Program; Visit Provider Internal Medicine
PROC: 0W993ZZ Drainage of Right Pleural Cavity, Percutaneous Approach (ICD-10-PCS; principal; 2024-03-23 14:00)
DX: U07.1 COVID-19 (principal); I50.23 Acute on chronic systolic (congestive) heart failure; J96.01 Acute respiratory failure with hypoxia; F05 Delirium due to known physiological condition; N39.0 Urinary tract infection, site not specified; J91.8 Pleural effusion in other conditions classified elsewhere; I42.9 Cardiomyopathy, unspecified; E87.0 Hyperosmolality and hypernatremia; J98.11 Atelectasis; Z51.5 Encounter for palliative care; I48.0 Paroxysmal atrial fibrillation; F03.90 Unspecified dementia, unspecified severity, without behavioral disturbance, psychotic disturbance, mood disturbance, and anxiety; I35.0 Nonrheumatic aortic (valve) stenosis; I25.10 Atherosclerotic heart disease of native coronary artery without angina pectoris; K82.8 Other specified diseases of gallbladder; I95.2 Hypotension due to drugs; B95.61 Methicillin susceptible Staphylococcus aureus infection as the cause of diseases classified elsewhere; K75.81 Nonalcoholic steatohepatitis (NASH); T50.1X5A Adverse effect of loop [high-ceiling] diuretics, initial encounter; E11.22 Type 2 diabetes mellitus with diabetic chronic kidney disease; S01.01XA Laceration without foreign body of scalp, initial encounter; W19.XXXA Unspecified fall, initial encounter; N18.30 Chronic kidney disease, stage 3 unspecified; Z79.01 Long term (current) use of anticoagulants; Z79.51 Long term (current) use of inhaled steroids; Z79.82 Long term (current) use of aspirin; Z79.84 Long term (current) use of oral hypoglycemic drugs; Z79.899 Other long term (current) drug therapy
CPT/HCPCS: 32555; 36415; 70450; 71045; 72125; 74176; 76705; 80048; 80053; 80076; 80307; 81001; 82803; 82947; 83605; 83615; 83735; 83880; 84157; 84484; 85025; 85027; 86140; 87040; 87070; 87073; 87086; 87088; 87186; 87205; 87635; 89051; 92507; 92610; 93005; 93306; 93971; 97162; 97530; 99285; J0690; J0696; J1100; J1940; J2003; J2060; J2270; P9047; Q9957

== ENCOUNTER → 2024-03-14 05:51 | Outpatient (BNV) | payer MEDICARE, OTHER, SELFPAY | PROVIDERS: Emergency Provider Emergency Medicine; PCP Student in an Organized Health Care Education/Training Program; Visit Provider Internal Medicine Cardiovascular Disease | DX: R94.31 Abnormal electrocardiogram [ECG] [EKG] (principal) | CPT/HCPCS: 93010 ==

== ENCOUNTER 2024-03-14 14:20 | Outpatient (BNV) | payer MEDICARE, OTHER, SELFPAY | END 2024-03-17 12:48 | PROVIDERS: Admitting Provider Student in an Organized Health Care Education/Training Program; Emergency Provider Emergency Medicine; PCP Student in an Organized Health Care Education/Training Program; Visit Provider Radiology Diagnostic Radiology | DX: K82.8 Other specified diseases of gallbladder (principal); R18.8 Other ascites | CPT/HCPCS: 76705 ==

== ENCOUNTER 2024-03-14 14:20 | Outpatient (BNV) | payer MEDICARE, OTHER, SELFPAY | END 2024-03-23 15:00 | PROVIDERS: Admitting Provider Student in an Organized Health Care Education/Training Program; Emergency Provider Emergency Medicine; PCP Student in an Organized Health Care Education/Training Program; Visit Provider Student in an Organized Health Care Education/Training Program | DX: J90 Pleural effusion, not elsewhere classified (principal) | CPT/HCPCS: 32555 ==

== ENCOUNTER 2024-03-14 14:20 | Outpatient (BNV) | payer MEDICARE, OTHER, SELFPAY | END 2024-03-16 07:00 | PROVIDERS: Admitting Provider Student in an Organized Health Care Education/Training Program; Emergency Provider Emergency Medicine; PCP Student in an Organized Health Care Education/Training Program; Visit Provider Internal Medicine | DX: I50.40 Unspecified combined systolic (congestive) and diastolic (congestive) heart failure (principal); I35.0 Nonrheumatic aortic (valve) stenosis; I34.0 Nonrheumatic mitral (valve) insufficiency; I36.1 Nonrheumatic tricuspid (valve) insufficiency | CPT/HCPCS: 93306 ==

== ENCOUNTER → 2024-03-14 14:20 | Outpatient (BNV) | payer MEDICARE, OTHER, SELFPAY | PROVIDERS: Admitting Provider Student in an Organized Health Care Education/Training Program; Emergency Provider Emergency Medicine; PCP Student in an Organized Health Care Education/Training Program; Visit Provider Student in an Organized Health Care Education/Training Program | DX: R09.02 Hypoxemia (principal); U07.1 COVID-19 | CPT/HCPCS: 99223; 99231; 99232; 99233; 99239 ==